=== PATIENT | male | born 1965 | race Caucasian/White ===

== ENCOUNTER 2022-01-11 04:55 | Emergency (ER) | payer OTHER, SELFPAY ==
--- NOTE | ~2022-01-11 | XR_ITS ---
EXAMINATION: XR shoulder RT min 2V DATE: 01/11/2022 05:54 INDICATION: Right shoulder pain. Injury. TECHNIQUE: 4 views of right shoulder were obtained. COMPARISON: Chest 2 views 03/05/2019 FINDINGS: There is a comminuted fracture of distal right clavicle. The main distal fracture fragment demonstrates 19 mm inferior displacement and 18 degrees inferior angulation. There is mild osteoarthr itis of acromioclavicular joint. Glenohumeral joint is normal. IMPRESSION: 1. Comminuted fracture of distal clavicle. Reviewed, dictated and finalized at location A. NG CRATER
--- NOTE | ~2022-01-11 | CT_ITS ---
EXAMINATION: CT brain wo con DATE: 01/11/2022 05:57 INDICATION: Syncope. TECHNIQUE: Computed tomography (CT) of the head was performed without intravenous contrast. The mA wa s adjusted according to patient size. Iterative reconstruction technique was employed. The dose-lengt h product was 681.00 mGy-cm. COMPARISON: Head CT 05/15/2014 FINDINGS: There is no intracranial hemorrhage, acute infarction, or abnormal intracranial mass lesion . The ventricles are normal in size. There is mild mucosal thickening in the paranasal sinuses. The m astoid air cells are normal. The orbits are normal. IMPRESSION: 1. Normal brain. Reviewed, dictated and finalized at location A. COORDINATOR IMPRESSION: 1. Normal brain.
--- NOTE | ~2022-01-11 | XR_ITS ---
EXAMINATION: XR ribs RT 2V w CXR 2V DATE: 01/11/2022 05:54 INDICATION: Right rib pain. Fall. TECHNIQUE: Frontal and lateral views of the chest and 2 views on 4 radiographs of the right ribs were obtained. COMPARISON: Chest 2 views 03/05/2019, chest CT 07/05/2017 FINDINGS: CHEST TWO VIEWS: There is mild atelectasis at left lung base. No pleural effusion or pneumothorax. Th e heart size is normal. There is a large hiatal hernia. There is a comminuted fracture of distal righ t clavicle. RIGHT RIBS: There is an acute fracture of right seventh rib. There are multiple old healed right rib fractures. IMPRESSION: 1. Acute fracture of right seventh rib. 2. Comminuted fracture of distal right clavicle. 3. Large hiatal hernia. 4. Mild atelectasis at left lung base. Reviewed, dictated and finalized at location A. ETITIVE ATHLETE
[2022-01-11 04:58] VITALS: BP 142/96; PULSE 111; RESP 18; TEMP 36.8; O2SAT 97
--- NOTE | 2022-01-11 05:22 | ECG_ITS ---
Measurements Intervals [place] Rate: 100 P: 14 [place]: 135 QRS: 83 QRSD: 85 T: 47 QT: 317 QTc: 409 Interpretive Statements SINUS TACHYCARDIA BASELINE ARTIFACT NONSPECIFIC T-WAVE ABNORMALITY BORDERLINE ECG NO PREVIOUS ECG AVAILABLE FOR COMPARISON Electronically Signed On 01-11-2022 14:07:10 SENIOR MANAGEMENT CONSULTANT by Gabe Yarbrough M.D.
--- NOTE | 2022-01-11 05:36 | ED.SYNCOPE ---
HPI - Syncope General Chief Complaint: Extremity Injury, Upper Stated Complaint: fall, right collar bone injury Time Seen by Provider: 01/11/22 05:34 Source: patient Mode of arrival: ambulatory Limitations: no limitations History of Present Illness HPI narrative: Patient is a 56-year-old male complaining of right rib pain, 9 out of 10, sharp, worse with movement, palpation and deep breaths that started after he had a syncopal episode, fell landing on his right shoulder and ribs. Patient states that his syncopal episode lasted for approximately 1 to 2 minutes. Patient states that he has history of multiple syncopal episodes in the past due to low iron and anemia . Patient states that he gets regular iron infusions due to his iron deficiency anemia. Patient denies any neck, chest, abdomen, back, pelvis, hip or any other extremity pain/injury. Patient denies any symptoms prior to the syncopal episode. Related Data Allergies Allergy/AdvReac Type Severity Reaction Status Date / Time Penicillins Allergy Unknown Unknown Verified 01/11/22 05:02 Review of Systems Review of Systems: All systems reviewed & are unremarkable except as noted in HPI and below Constitutional: Constitutional: Denies body ache(s), Denies chills, Denies excessive sweating, Denies fatigue, Denies fever(s), Denies headache(s), Denies lethargy, Denies malaise, Denies weakness and Denies weight loss Eyes: Eyes: Denies blurry vision, Denies change in vision and Denies loss of vision ENT: Denies dizziness, Denies ear discharge, Denies headache(s), Denies lip swelling, Denies epistaxis, Denies nasal congestion, Denies neck pain, Denies throat swelling and Denies tongue swelling Cardiovascular: Cardiovascular: Denies chest pain, Denies chest pain at rest, Denies chest pain with activity, Denies diaphoresis, Denies rapid heart rate, Denies edema, Denies irregular heart rhythm, Denies lightheadedness, Denies palpitations, Denies dyspnea and Denies dyspnea on exertion Respiratory: Respiratory: Denies chest congestion, Denies cough, Denies hemoptysis, Denies dyspnea and Denies dyspnea on exertion Gastrointestinal: Gastrointestinal: Denies abdominal pain, Denies melena, Denies hematochezia, Denies diarrhea, Denies nausea, Denies vomiting and Denies hematemesis Musculoskeletal: Musculoskeletal: Denies abnormal gait, Denies deformity, Denies joint swelling, Denies limited range of motion, Denies neck pain and Denies numbness Neurologic: Denies Abnormal speech present, Denies abnormal gait, Denies confusion, Denies dizziness, Denies headache(s), Denies focal weakness, Denies loss of vision, Denies numbness, Denies Other visual disturbances, Denies Sensory deficit (Neuro) and Denies weakness Psychiatric: Psychiatric: Denies confusion, Denies depression, Denies auditory hallucinations, Denies homicidal ideation and Denies suicidal ideation Endocrine: Endocrine: Denies cold intolerance, Denies excessive sweating, Denies fatigue, Denies heat intolerance and Denies palpitations Hematologic/Lymphatic: Hematologic/Lymphatic: Denies easy bleeding and Denies easy bruising Allergic/Immunologic: Allergic/Immunologic: Denies lip swelling, Denies throat swelling and Denies tongue swelling PMFSH Past Medical History Medical History BMI 26.0-26.9,adult Erectile dysfunction Hypothyroidism Psychophysiological insomnia Skin lesion of face Testosterone deficiency Family History Family History Grandparent Diabetes mellitus Other Family history of arthritis Family history of malignant neoplasm Social History Social History Alcohol intake: current Exam Const: General: cooperative, healthy appearing, comfortable, no acute distress, well developed, alert and awake; No confusion Orientation/consciousness: oriented to perso
[2022-01-11 05:38] LABS: Basophils Percent Auto 0.2 % (0.2-1.2); Eosinophils Absolute Auto 0.1 K/mm3 (0-0.3); Eosinophils Percent Auto 1.9 % (0-4.4); Hematocrit 42.2 % (42.0-52.0); Hemoglobin 12.9 g/dL (14.0-18.0); Immature Granulocyte Absolute 0.02 K/mm3 (0.00-0.031); Immature Granulocyte Percent A 0.3 % (0-0.5); Immature Platelet Fraction Pct 8.4 % (0.9-11.2); Lymphocytes Absolute Auto 1.02 K/mm3 (0.9-3.2); Lymphocytes Percent Auto 15.8 % (18.3-44.2); Mean Corpuscular HGB Conc 30.6 g/dl (32-36); Mean Corpuscular Hemoglobin 25.4 pg (26-34); Mean Corpuscular Volume 83.2 fl (80-100); Monocytes Absolute Auto 0.7 K/mm3 (0.1-0.6); Monocytes Percent Auto 10.4 % (2.6-8.5); Neutrophils Absolute Auto 4.6 K/mm3 (1.3-6.7); Neutrophils Percent Auto 71.4 % (45.5-73.1); Platelet Count Result 287 k/mm3 (150-375); Red Blood Count 5.07 M/mm3 (4.6-6.20); White Blood Count 6.5 K/mm3 (4.5-10.0)
[2022-01-11] MEDS: HYDROmorphone HCL INJ (*CRX) 1 MG/ML SYR 0.5 MG IV PUSH ×2 (05:38→07:23)
[2022-01-11 05:44] LABS: Alanine Aminotransferase 35 U/L (4-50); Albumin Level 4.7 g/dL (3.5-5.1); Alkaline Phosphatase 105 U/L (38-126); Anion Gap 9 mmol/L (8-16); Aspartate Amino Transferase 52 U/L (17-59); Bilirubin,Total 0.9 mg/dL (0.2-1.3); Blood Urea Nitrogen 14 mg/dL (9-20); Calcium 8.4 mg/dL (8.4-10.2); Carbon Dioxide 21 mmol/L (22-30); Chloride 105 mmol/L (98-107); Estimated CRCL calculation 83 ml/min; Estimated Glomerular Filt Rate > 60; Glucose 154 mg/dL (65-110); Potassium 4.7 mmol/L (3.4-5.0); Sodium 135 mmol/L (137-145)
[2022-01-11 06:18] LABS: Troponin I < 0.012 ng/mL (0.000-0.034)
--- NOTE | 2022-01-11 07:17 | PC.NURSE ---
Patient report received from DANELLE Lopez. All questions answered and care of patient assumed. Patient resting quietly in stretcher with family at beside. Call-light within reach. VSS. Awaiting disposition.
[2022-01-11] MEDS: diazePAM (*CRX) 5 MG TABLET PO (07:22)
[2022-01-11 07:29] LABS: Anisocytosis 1+ (NORMAL); Atypical Lymphocytes Present; Hypochromasia 1+ (NORMAL); Platelet Estimate Adequate (Adequate); Poikilocytosis 1+ (NORMAL)
[2022-01-11 07:38] VITALS: BP 115/80; PULSE 76; RESP 13; O2SAT 94
--- NOTE | 2022-01-11 08:00 | PC.NURSE ---
Sling applied to Right Arm.
[2022-01-11 08:03] VITALS: BP 125/80; PULSE 82; RESP 17; O2SAT 95
== END 2022-01-11 08:20 | disposition home or self-care (01) ==
PROVIDERS: Emergency Medicine; PCP Family Medicine
DX: S22.31XA Fracture of one rib, right side, initial encounter for closed fracture (principal); S42.031A Displaced fracture of lateral end of right clavicle, initial encounter for closed fracture; R55 Syncope and collapse; E03.9 Hypothyroidism, unspecified; W18.39XA Other fall on same level, initial encounter; R00.0 Tachycardia, unspecified; R94.31 Abnormal electrocardiogram [ECG] [EKG]
CPT/HCPCS: 36415; 70450; 71046; 71100; 73030; 80053; 84484; 85025; 85055; 86850; 86900; 86901; 93005; 96374; 96376; 99284; A4565; A9270; J1170

== ENCOUNTER 2023-07-31 14:54 | Emergency (ER) | payer OTHER, SELFPAY ==
[2023-07-31] VITALS (19 sets, daily range): BP systolic 129–141; BP diastolic 81–97; PULSE 49–68; RESP 9–18; TEMP 36.4; O2SAT 99–100
--- NOTE | ~2023-07-31 | XR_ITS ---
EXAMINATION: XR chest 2V Exam Date/Time: 07/31/2023 16:40 CDT HISTORY: CHEST PAIN Comparison: 01/11/2022. RESULT: Lines, tubes, and devices: None. Lungs and pleura: Clear. Cardiomediastinal silhouette: Stable. Hiatal hernia. Other: No acute osseous or upper abdominal finding. Nonunited right distal clavicular fracture. IMPRESSION: No acute cardiopulmonary process. Reviewed, dictated and finalized at location K.
--- NOTE | 2023-07-31 15:53 | ECG_ITS ---
Measurements Intervals [place] Rate: 65 P: 53 [place]: 138 QRS: 88 QRSD: 84 T: 78 QT: 402 QTc: 418 Interpretive Statements SINUS RHYTHM BASELINE ARTIFACT- I, II, III, AVR, AVL NORMAL ECG COMPARED TO ECG 01/11/2022 05:11:37 SINUS RHYTHM NOW PRESENT Electronically Signed On 07-31-2023 20:34:37 CDT by Vel Whitley D.O.
[2023-07-31 16:47] LABS: Basophils Percent Auto 0.4 % (0.2-1.2); Eosinophils Absolute Auto 0.2 K/mm3 (0-0.3); Eosinophils Percent Auto 3.4 % (0-4.4); Hematocrit 44.4 % (42.0-52.0); Hemoglobin 14.6 g/dL (14.0-18.0); Immature Granulocyte Absolute 0.01 K/mm3 (0.00-0.031); Immature Granulocyte Percent A 0.2 % (0-0.5); Lymphocytes Absolute Auto 1.52 K/mm3 (0.9-3.2); Mean Corpuscular HGB Conc 32.9 g/dl (32-36); Mean Corpuscular Hemoglobin 30.7 pg (26-34); Mean Corpuscular Volume 93.3 fl (80-100); Mean Platelet Volume 11.7 fl (7.4-10.4); Monocytes Absolute Auto 0.5 K/mm3 (0.1-0.6); Monocytes Percent Auto 11.2 % (2.6-8.5); Neutrophils Absolute Auto 2.5 K/mm3 (1.3-6.7); Neutrophils Percent Auto 52.8 % (45.5-73.1); Platelet Count Result 200 k/mm3 (150-375); Red Blood Count 4.76 M/mm3 (4.6-6.20); Red Cell Distribution Width 14.5 % (11.5-14.5); White Blood Count 4.8 K/mm3 (4.5-10.0)
[2023-07-31 16:59] LABS: Alanine Aminotransferase 47 U/L (6-50); Albumin Level 4.6 g/dL (3.5-5.1); Alkaline Phosphatase 72 U/L (38-126); Anion Gap 8 mmol/L (8-16); Aspartate Amino Transferase 48 U/L (17-59); Bilirubin,Total 0.5 mg/dL (0.2-1.3); Blood Urea Nitrogen 21 mg/dL (9-20); Calcium 9.2 mg/dL (8.4-10.2); Carbon Dioxide 26 mmol/L (22-30); Chloride 104 mmol/L (98-107); Estimated CRCL calculation 97 ml/min; Estimated Glomerular Filt Rate > 60; Glucose 113 mg/dL (65-110); Lipase 207 U/L (23-300); Potassium 4.7 mmol/L (3.4-5.0); Sodium 138 mmol/L (137-145)
[2023-07-31] MEDS: ASPIRIN 81 MG CHEWABLE TABLET 324 MG PO (17:00)
[2023-07-31 17:01] LABS: INR 0.9; Prothrombin Time 12.7 Seconds (11.1-14.7)
[2023-07-31 17:09] LABS: Troponin I < 0.012 ng/mL (0.000-0.034)
--- NOTE | 2023-07-31 17:11 | ED.CHESTPAIN ---
HPI - Chest Pain General Chief Complaint: Chest Pain Stated Complaint: Chest Pain Time Seen by Provider: 07/31/23 16:57 History of Present Illness HPI narrative: Patient is a 57-year-old male with history of chronic iron deficiency anemia here with flu-like symptoms and chest pain. Patient states symptoms have been present for about 1 week. he had some sick contacts last week with a friend who had influenza. He notes that he has been having body aches, chills, hot flashes, headache. He notes that yesterday he began having mid to left-sided chest pain which is nonradiating. He notes that with the chest pain he has been having some shortness of breath. He has an associated cough. no prior cardiac history. No history of prior PE or DVT. No recent travel, no recent surgeries, no leg swelling, no calf tenderness. Additionally states that he has had some fatigue and this feels similar to when he requires blood transfusions. He is typically get has a blood transfusion every 4-5 months due to his chronic anemia. No active bleeding. Related Data Allergies Allergy/AdvReac Type Severity Reaction Status Date / Time Penicillins Allergy Unknown Unknown Verified 07/31/23 16:59 Review of Systems Review of Systems: CONSTITUTIONAL: fever, chills, or sweats. EYES: Denies visual changes, redness, or discharge. ENT: Denies rhinorrhea, congestion, sore throat, or otalgia. CARDIOVASCULAR: chest pain, no palpitations, or edema. RESPIRATORY: cough and dyspnea. GASTROINTESTINAL: Denies abdominal pain, nausea, vomiting GENITOURINARY: Denies dysuria or hematuria. SKIN: Denies rash or itching. MUSCULOSKELETAL: Denies back pain, joint pain, or myalgia. NEUROLOGIC: headache, no numbness, or weakness. PSYCHIATRIC: Denies anxiety or depression. [facility] Past Medical History Medical History Apnea BMI 22.0-22.9, adult BMI 26.0-26.9,adult BMI 27.0-27.9,adult BPH (benign prostatic hyperplasia) De Quervain's disease (tenosynovitis) Erectile dysfunction Hyperhidrosis Hypothyroidism Knee abrasion Need for vaccination Psychophysiological insomnia Skin lesion of face Testosterone deficiency Weight loss, unintentional Family History Family History Grandparent Diabetes mellitus Father Acute myocardial infarction Mother Leukemia Cancer of vulva Cancer of kidney Other Family history of arthritis Family history of malignant neoplasm Social History Social History Smoking status: Never smoker Second hand tobacco smoke exposure: No Alcohol intake: current Substance use: current Substance use type: marijuana 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 HEAD: Normocephalic, atraumatic. EYES: PERRLA and EOMI. ENT: Nares clear. Mucous membranes moist. NECK: Supple. CHEST: Clear to auscultation. No respiratory distress. HEART: Regular rate and rhythm. Normal peripheral pulses. ABDOMEN: Soft, nontender, nondistended. EXTREMITIES: Normal range of motion. No edema, no calf tenderness. SKIN: Warm, dry, no rash. NEURO: No focal deficits. Alert and oriented x3. PSYCH: Normal mood and affect. Course Course Emergency Course: Chart review performed. Triage note states patient here with chest pain. Triage vitals within normal li
[2023-07-31 17:57] LABS: Influenza A QL RT-PCR Negative (Negative); Influenza B QL RT-PCR Negative (Negative); RSV RNA, RT-PCR Negative (Negative); SARS-CoV-2 RNA PCR Negative (Negative)
[2023-07-31] MEDS: SODIUM CHLORIDE 0.9% IV 1,000 ML 999 ML IV CONT (19:05)
[2023-07-31] MEDS: ACETAMINOPHEN 500 MG TABLET 1000 MG PO (19:06)
[2023-07-31 19:38] LABS: Troponin I < 0.012 ng/mL (0.000-0.034)
== END 2023-07-31 20:42 | disposition home or self-care (01) ==
PROVIDERS: Emergency Medicine; Emergency Provider Student in an Organized Health Care Education/Training Program; PCP Family Medicine
DX: R07.9 Chest pain, unspecified (principal); Z20.822 Contact with and (suspected) exposure to COVID-19; E03.9 Hypothyroidism, unspecified
CPT/HCPCS: 36415; 71046; 80053; 83690; 84484; 85025; 85610; 85730; 87637; 93005; 96360; 99284; A9270; J7030

== ENCOUNTER 2023-08-10 00:25 | Day surgery (SDC) | payer OTHER, SELFPAY ==
[2023-08-03 13:11] VITALS: BMI 23.2
--- NOTE | 2023-08-09 16:50 | PM.HPGS ---
History of Present Illness History of Present Illness Consent: Risks, benefits, and alternatives have been discussed and questions answered. Patient agrees to proceed with procedure. Chief complaint: Abnormal weight loss, Iron Deficiency Anemia Narrative: Sebastien Gee is a 57 year old male referred because of chronic anemia. He has been receiving a Iron insfusion every 6 months or so. Now he is also losing weight. He has lost about 50 lb in the past year. He does not see blood in his stools. Review of Systems Review of Systems: All systems reviewed & are unremarkable except as noted in HPI and below PMFSH Past Medical History Medical History Apnea BMI 22.0-22.9, adult BMI 26.0-26.9,adult BMI 27.0-27.9,adult BPH (benign prostatic hyperplasia) De Quervain's disease (tenosynovitis) Erectile dysfunction Hyperhidrosis Hypothyroidism Knee abrasion Need for vaccination Psychophysiological insomnia Skin lesion of face Testosterone deficiency Weight loss, unintentional Family History Family History Grandparent Diabetes mellitus Father Acute myocardial infarction Mother Leukemia Cancer of vulva Cancer of kidney Other Family history of arthritis Family history of malignant neoplasm Social History Social History Smoking status: Never smoker Second hand tobacco smoke exposure: No Alcohol intake: current Drinks per week: 4 Substance use: current Substance use type: does not use 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 Gender identity (if verbalized by the patient): Male Spiritual care concerns: No Meds Home Medications and Allergies Home Medications Medication Instructions Recorded Confirmed Type atorvastatin 40 mg tablet 40 mg PO DAILY #90 tabs 10/15/20 08/03/23 Rx ferrous sulfate 325 mg (65 mg 650 mg PO DAILY #60 tabs 03/10/21 08/03/23 Rx iron) tablet sildenafil 100 mg tablet 100 mg PO DAILY PRN sexual 11/09/22 08/03/23 Rx activity #30 tabs omeprazole 20 mg capsule,delayed 20 mg PO DAILY #90 caps 12/22/22 08/03/23 Rx release vawyvvprhm-dlpavzspczyus-opgaefex 1 cap PO Q6H PRN pain #90 caps 06/07/23 08/03/23 Rx 50 mg-300 mg-40 mg capsule (Fioricet) alprazolam 0.5 mg tablet 0.5 mg PO .QHS #90 tabs 06/17/23 08/03/23 Rx gabapentin 300 mg capsule 300 mg PO QHS #90 caps 06/17/23 08/03/23 Rx mirtazapine 15 mg tablet 15 mg PO QHS #90 tabs 06/17/23 08/03/23 Rx Allergies Allergy/AdvReac Type Severity Reaction Status Date / Time Penicillins Allergy Unknown Unknown Verified 08/10/23 09:37 Exam Const: General: alert Orientation/consciousness: patient oriented x3 Resp: Auscultation: clear to auscultation bilaterally Cardio: Rhythm: regular rhythm GI: GI Palp: Yes Soft to palpation and No Tenderness to palpation present (GI) Neuro: General: patient oriented x3 Assessment and Plan Assessment and plan (1) Iron deficiency anemia: Qualifiers: Iron deficiency anemia type: other iron deficiency Qualified Code(s): D50.8 - Other iron deficiency anemias Code(s): D50.9 - Iron deficiency anemia, unspecified Status: Acute Assessment and Plan: Colonoscopy with possible biopsy or polypectomy or cautery or injection of substances. (2) Weight loss, unintentional: Code(s): R63.4 - Abnormal weight loss Status: Acute Assessment and Plan: EGD with possibl
[2023-08-10 09:38] VITALS: BP 112/75; PULSE 67; RESP 18; TEMP 36.2; O2SAT 100
[2023-08-10] MEDS: LACTATED RINGERS 1,000 ML 150 ML IV CONT (09:44)
--- NOTE | 2023-08-10 10:34 | WPDANESEPPF ---
Anes - Initial Pre Proc Eval Procedure: Operation Date: 08/10/23 11:00 Proposed Procedures p Esophagogastroduodenoscopy & Colonoscopy - Kali Baxter MD Date/Time: 08/10/23 10:34 Surgeon: Kali Baxter MD Pre Op Diagnosis: Abnormal weight loss, Iron Deficiency Anemia Patient Data Age: 57 Gender: M Height: 1.88 m Weight: 82 kg Last Vital Signs Temp 97.1 F L 08/10/23 09:38 Pulse 67 08/10/23 09:38 Resp 18 08/10/23 09:38 BP 112/75 08/10/23 09:38 Pulse Ox 100 08/10/23 09:38 O2 Del Method Room Air 08/10/23 09:38 Allergies Allergy/AdvReac Type Severity Reaction Status Date / Time Penicillins Allergy Unknown Unknown Verified 08/10/23 09:37 Home Medications Medication Instructions Recorded Confirmed Type atorvastatin 40 mg tablet 40 mg PO DAILY #90 tabs 10/15/20 08/03/23 Rx ferrous sulfate 325 mg (65 mg 650 mg PO DAILY #60 tabs 03/10/21 08/03/23 Rx iron) tablet sildenafil 100 mg tablet 100 mg PO DAILY PRN sexual 11/09/22 08/03/23 Rx activity #30 tabs omeprazole 20 mg capsule,delayed 20 mg PO DAILY #90 caps 12/22/22 08/03/23 Rx release bvwitucfei-bffgofzqltfxa-hyxlmryo 1 cap PO Q6H PRN pain #90 caps 06/07/23 08/03/23 Rx 50 mg-300 mg-40 mg capsule (Fioricet) alprazolam 0.5 mg tablet 0.5 mg PO .QHS #90 tabs 06/17/23 08/03/23 Rx gabapentin 300 mg capsule 300 mg PO QHS #90 caps 06/17/23 08/03/23 Rx mirtazapine 15 mg tablet 15 mg PO QHS #90 tabs 06/17/23 08/03/23 Rx Patient hx anesthesia problems: none Family hx anesthesia problems: none Results Review: All pre-operative results and documents have been reviewed as part of the pre-operative evaluation. [facility] Past Medical History Medical History Apnea BMI 22.0-22.9, adult BMI 26.0-26.9,adult BMI 27.0-27.9,adult BPH (benign prostatic hyperplasia) De Quervain's disease (tenosynovitis) Erectile dysfunction Hyperhidrosis Hypothyroidism Knee abrasion Need for vaccination Psychophysiological insomnia Skin lesion of face Testosterone deficiency Weight loss, unintentional Family History Family History Grandparent Diabetes mellitus Father Acute myocardial infarction Mother Leukemia Cancer of vulva Cancer of kidney Other Family history of arthritis Family history of malignant neoplasm Social History Social History Smoking status: Never smoker Second hand tobacco smoke exposure: No Alcohol intake: current Drinks per week: 4 Substance use: current Substance use type: does not use 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/Education: retired 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 Informed Consent: The patient's anesthetic plan and its attendant risks and benefits were discussed with the patient/family/POA. Questions were solicited and answers provided to the satisfaction of the patient/family/POA.
--- NOTE | 2023-08-10 10:58 | SUR.OPER ---
EGD START: 1041; END: 1043. COLONOSCOPY START: 1050; END: 1057.
[2023-08-10 11:02] VITALS: BP 92/61; PULSE 57; RESP 18; O2SAT 98
[2023-08-10 11:12] VITALS: BP 95/61; PULSE 54; RESP 18; O2SAT 100
[2023-08-10 11:22] VITALS: BP 113/69; PULSE 54; RESP 18; O2SAT 100
== END 2023-08-10 11:34 | disposition home or self-care (01) ==
PROVIDERS: PCP Family Medicine; Visit Provider Internal Medicine Gastroenterology
PROC: 0DJ08ZZ Inspection of Upper Intestinal Tract, Via Natural or Artificial Opening Endoscopic (ICD-10-PCS; CPT 43235; principal; 2023-08-10 11:00)
DX: D50.9 Iron deficiency anemia, unspecified (principal); K57.30 Diverticulosis of large intestine without perforation or abscess without bleeding; K44.9 Diaphragmatic hernia without obstruction or gangrene; N40.0 Benign prostatic hyperplasia without lower urinary tract symptoms; E29.1 Testicular hypofunction; Z68.23 Body mass index [BMI] 23.0-23.9, adult
CPT/HCPCS: 45378; 43235; J2704; J7120

== ENCOUNTER 2023-08-30 10:06 | Emergency (ER) | payer OTHER, SELFPAY ==
--- NOTE | ~2023-08-30 | XR_ITS ---
XR shoulder LT min 2V 08/30/2023 10:58 INDICATION: Left shoulder pain PROCEDURE: 4 views left shoulder COMPARISON: No prior studies for comparison. FINDINGS: Fracture, dislocation or subluxation is not identified. The soft tissues appear within norm al limits. No foreign bodies are identified. IMPRESSION: 1: NO ACUTE BONE OR JOINT ABNORMALITY IDENTIFIED. Reviewed, dictated and finalized at location L.
--- NOTE | 2023-08-30 10:14 | ED.EXTPRO ---
HPI - Extremity Problem General Chief complaint: Extremity Problem,Nontraumatic Stated complaint: shoulder pain Time Seen by Provider: 08/30/23 10:14 Source: patient Mode of arrival: ambulatory Limitations: no limitations History of Present Illness HPI Narrative: Sebastien is a 57-year-old male patient presenting to clinic today with complaints of chronic shoulder pain that has been getting worse over the last month. He reports he has had shoulder pain for several years now. States that he is now having pain shooting down his arm and into his left lateral chest. Has severe pain when raising his arm above his head and trying to cross his arm to the right shoulder. Reports hand weakness to the left hand as well. No known injury to the left shoulder. 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 Patient denies any fever, chills, rash, headache, visual changes, dizziness, cough, runny nose, sore throat, shortness of breath, chest pain, palpitations, nausea, vomiting, diarrhea, constipation, abdominal pain, or any urinary issues. [facility] Past Medical History Medical History Apnea BMI 22.0-22.9, adult BMI 26.0-26.9,adult BMI 27.0-27.9,adult BPH (benign prostatic hyperplasia) De Quervain's disease (tenosynovitis) Erectile dysfunction Hyperhidrosis Hypothyroidism Knee abrasion Need for vaccination Psychophysiological insomnia Skin lesion of face Testosterone deficiency Weight loss, unintentional Family History Family History Grandparent Diabetes mellitus Father Acute myocardial infarction Mother Leukemia Cancer of vulva Cancer of kidney Other Family history of arthritis Family history of malignant neoplasm Social History Social History Smoking status: Never smoker Second hand tobacco smoke exposure: No Alcohol intake: current Drinks per week: 4 Substance use: current Substance use type: does not use 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 There is no relevant family history pertinent to the patient complaint. Exam Narrative: General: Well-developed, well nourished, in no apparent distress Head: Normocephalic, atraumatic. Cardio: Regular rate and rhythm, s1 and s2 normal, no murmur appreciated. Resp: Clear to auscultation bilaterally, no rhonchi, rales, wheezing or rubs. Musculoskeletal: No deformity,tender to palpation over the mid anterior shoulder and the posterior shoulder, pain radiating down the left lateral humerus and over the left lateral chest wall, unable to raise arm above head without significant pain, pain with empty can and full can testing, negative drop-arm test, positive Rojo test, left hand grasp is weaker than right, peripheral pulse strong, no edema, no cyanosis, normal gait and station Course Course Emergency Course: Portions of this record may have been created with voice recognition software. Level of Care: Express Care Visit Vital Signs Vital signs: Vital signs reviewed
[2023-08-30 10:23] VITALS: BP 133/86; PULSE 69; RESP 16; TEMP 36.2; O2SAT 100
== END 2023-08-30 11:24 | disposition home or self-care (01) ==
PROVIDERS: Emergency Provider Nurse Practitioner Family; PCP Family Medicine
DX: M77.8 Other enthesopathies, not elsewhere classified (principal); N40.0 Benign prostatic hyperplasia without lower urinary tract symptoms; E03.9 Hypothyroidism, unspecified
CPT/HCPCS: 73030; 99213; G0463

== ENCOUNTER 2025-06-18 11:16 | Observation (INO) | payer OTHER, SELFPAY ==
[2025-06-18] VITALS (9 sets, daily range): BP systolic 123–142; BP diastolic 83–98; PULSE 58–89; RESP 12–19; TEMP 36.5–36.9; O2SAT 96–98; BMI 21.9
--- NOTE | ~2025-06-18 | CT_ITS ---
EXAMINATION: CTA chest PE protocol DATE: 06/18/2025 13:31 CDT INDICATION: Chest pressure. Chest tightness TECHNIQUE: Computed tomographic angiography (CTA) of the chest was performed with 100 mL Omnipaque-35 0 intravenous contrast. The dose-length product was 307.18 mGy-cm. Maximum intensity projection 3D-re constructions of the aorta and other arteries were constructed by the technologist on a separate work station. COMPARISON: 07/05/2017 FINDINGS: Moderate to large hiatal hernia. No enlarged mediastinal or hilar lymph nodes. Heart is not enlarged. Pulmonary artery is unremarkable . No pulmonary mass is identified. Visualized tracheobronchial tree is patent. No pneumothorax. No focal pulmonary consolidation. No pul monary mass. No pleural effusion. Small opacities in the lower lobes. Minimal multilevel degenerative change in the thoracic spine. IMPRESSION: 1. No pulmonary embolism identified. 2. Small opacities in the lower lobes. Differential includes atelectasis/scarring or an inflammatory/ infectious process. 3. Moderate to large hiatal hernia. Reviewed, dictated and finalized at location A. IMPRESSION: 1. No pulmonary embolism identified. 2. Small opacities in the lower lobes. Differential includes atelectasis/scarri ng or an inflammatory/infectious process. 3. Moderate to large hiatal hernia.
--- NOTE | ~2025-06-18 | XR_ITS ---
Exam: Chest 2 views. CLINICAL HISTORY: Mid chest pain COMPARISON: Chest x-ray 07/31/2023 Technique: Frontal and lateral films of the chest were obtained. FINDINGS: Heart is not enlarged. No pneumothorax. No pleural effusion. No free air in the diaphragm. Probable m oderate to large hiatal hernia which has slightly increased in size. IMPRESSION: 1. No acute pulmonary process identified. 2. Probable moderate to large hiatal hernia which has slightly increased in size as compared to the s tudy from 07/31/2023. Consider a chest CT for further assessment. Reviewed, dictated and finalized at location A. IMPRESSION: 1. No acute pulmonary process identified. 2. Probable moderate to large hiatal hernia which has slightly increased in siz e as compared to the study from 07/31/2023. Consider a chest CT for further asse ssment.
--- NOTE | 2025-06-18 11:24 | ECG_ITS ---
Test Date: 2025-06-18 11:25:56 Measurements Intervals [place] Rate: 74 P: 7 [place]: 145 QRS: 80 QRSD: 86 T: 76 QT: 361 QTc: 402 Interpretive Statements SINUS RHYTHM NORMAL ECG No previous ECG available for comparison Electronically Signed On 06-18-2025 14:03:49 CDT by Vel Whitley D.O.
[2025-06-18] MEDS: ASPIRIN 81 MG CHEWABLE TABLET 324 MG PO (11:40)
[2025-06-18 11:41] LABS: Hematocrit 46.6 % (42.0-52.0); Hemoglobin 15.7 g/dL (14.0-18.0); Immature Granulocyte Percent A 0.2 % (0-0.5); Lymphocytes Absolute Auto 1.03 K/mm3 (0.9-3.2); Mean Corpuscular HGB Conc 33.7 g/dl (32-36); Mean Corpuscular Hemoglobin 30.1 pg (26-34); Mean Corpuscular Volume 89.3 fl (80-100); Nucleated Red Blood Cells Absolute Auto 0.000 K/mm3 (0.0-0.012); Nucleated Red Blood Cells Perc 0.0 % (0.0-0.2); Platelet Count Result 210 k/mm3 (150-375); Red Blood Count 5.22 M/mm3 (4.6-6.20); White Blood Count 5.3 K/mm3 (4.5-10.0)
[2025-06-18 11:50] LABS: Alanine Aminotransferase 34 U/L (6-50); Albumin Level 4.6 g/dL (3.5-5.1); Alkaline Phosphatase 81 U/L (38-126); Anion Gap 10 mmol/L (4-12); Aspartate Amino Transferase 38 U/L (17-59); Bilirubin,Total 0.9 mg/dL (0.2-1.3); Blood Urea Nitrogen 16 mg/dL (9-20); Calcium 10.0 mg/dL (8.4-10.2); Carbon Dioxide 20 mmol/L (22-30); Chloride 104 mmol/L (98-107); Estimated CRCL calculation 92 ml/min; Estimated Glomerular Filt Rate > 60; Glucose 141 mg/dL (65-110); Lipase 196 U/L (23-300); Potassium 4.7 mmol/L (3.4-5.0); Sodium 134 mmol/L (137-145); Total Protein 7.9 g/dL (6.3-8.2)
[2025-06-18 11:53] LABS: INR 0.9; Partial Thromboplastin Time 27.2 Seconds (22.3-36.8); Prothrombin Time 12.8 Seconds (11.1-14.7)
[2025-06-18 12:02] LABS: Troponin I 0.025 ng/mL (0.000-0.034)
--- OUTSIDE RECORDS SUMMARY | 2025-06-18 12:09 | XMS_ITS | Encounter Summary ---
Author Organization [facility] Address [facility] [place] [address] Care Team Providers Care Branch Lending Manager Name Role Phone Tobias Barboza MD Primary Care Provider [phone] Encounter Details Date Type Department Care Team (Late st Contact Info) Description 09/09/2021 Therapy Plan [facility] One Day Services [address] [place], [place] [id number] Tobias Barboza MD [address] [facility] [address] Social History Tobacco Use Types Packs/Day Years Used Date Smoking Tobacco: Never Assessed Sex and Gender Information Value Date Recorded Sex Assigned at Not on file Legal Sex Male 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
--- OUTSIDE RECORDS SUMMARY | 2025-06-18 12:09 | XMS_ITS | Encounter Summary ---
Author Organization [facility] Address [address] [place] [address] Care Team Providers Care Special Education Tutor Name Role Phone Tobias Barboza MD Primary Care Provider [phone] Reason for Referral * Injection (Routine) - Closed Specialty Diagnoses / Procedures Referred By Contac t Referred To Contact INFUSION THERAPY / [facility] Infusion Therapy Diagnoses Iron deficiency Other iron deficiency anemias Procedures INJECTION, FERRIC CARBOXYMALTOSE, 1 MG For Injectafer weekly x 3 doses [facility] One Day Services [address] [place] [address] Phone: tel: [facility] Infusion Services [address] [place] [address] Phone: tel: Referral ID Status Reason Start Date Expiration Date V isits Requested Visits Authorized [id number] Closed Specialty Services 05/25/2021 06/25/2022 4 4 Scheduling Instructions For Injectafer Encounter Details Date Type Department Care Team (Late st Contact Info) Description 05/25/2021 Therapy Plan [facility] Day Services [address] [place] [address] Tobias Barboza MD [address] [address] Social History Tobacco Use Types Packs/Day Years Used Date Smoking Tobacco: Never Assessed Sex and Gender Information Value Date Recorded Sex Assigned at Not on file Legal 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 No / Unsure 05/27/2021 1:54 PM CDT documented as of this encounter Plan of Treatment Scheduled Referrals Name Type Priority Associated Diagnoses Orde r Schedule Ambulatory referral to Infusion Therapy Referral Routine Iron deficiency Iron deficiency anemia Ordered: 05/25/2021 documented as of this encounter Visit Diagnoses Diagnosis Iron deficiency- Primary Iron deficiency anemia, unspecified Iron deficiency anemia Iron deficiency anemia, unspecified documented in this encounter Care Teams Special Education Tutor Relationship Specialty Start Date End Date Tobias Barboza MD [address] [address] PCP - General FAMILY PRACTICE 12/07/19 documented as of this encounter
--- OUTSIDE RECORDS SUMMARY | 2025-06-18 12:09 | XMS_ITS | Encounter Summary ---
Author Organization [facility] Address [facility] [place] [address] Care Team Providers Care Manager Planning Name Role Phone Tobias Barboza MD Primary Care Provider [phone] Encounter Details Date Type Department Care Team (Late st Contact Info) Description 02/27/2025 Therapy Plan [facility] One Day Services [address] [place] [address] Noelle Nnues, ASAF [address] [place] [address] Social History Tobacco Use Types Packs/Day Years Used Date Smoking Tobacco: Never Assessed Sex and Gender Information Value Date Recorded Sex Assigned at Not on file Legal Sex Male 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
--- OUTSIDE RECORDS SUMMARY | 2025-06-18 12:09 | XMS_ITS | Clinical Summary ---
Author Organization [facility] Address [address] [place] [address] Care Team Providers Care Asset Analyst Name Role Phone Tobias Barboza MD Primary Care Provider [phone] Allergies No known active allergies Medications tamsulosin (FLOMAX) 0.4 mg capsule Take 0.4 mg by mouth daily. Active atorvastatin (LIPITOR) 20 mg tablet Take 20 mg by mouth late in the day. Active ALPRAZolam (XANAX) 0.5 mg tablet Take 0.5 mg by mouth 3 times daily as needed for Anxiety. Active aspirin-caffein e-butalbital (FIORINAL) 325-40-50 mg capsule Take 1 Capsule by mouth every 4 hours as needed for Migraine. Active ascorbic acid, vitamin C, (VITAMIN C) 500 mg tablet Take 500 mg by mouth 3 times daily. Active ferrous sulfate 325 mg (65 mg iron) tablet Take 325 mg by mouth 2 times daily . Active ANDROGEL 20.25 mg/1.25 gram (1.62 %) Gel in Metered-dose Pump APPLY TO EACH UPPER ARM AND SHOULDER IN THE MORNING FOR A TOTAL DOSE OF 40.5MG 1 02/17/2018 Active meloxicam (MOBIC) 15 mg tablet TK 1 T PO QD 2 03/11/2018 Active omeprazole (PriLOSEC) 20 mg Capsule, Delayed Release(E.C.) TK ONE C PO QD AC 5 03/11/2018 Active ARIPiprazole (ABILIFY) 5 mg tablet Take 5 mg by mouth daily. 0 03/13/2019 Active Active Problems Problem Noted Date Diagnosed Date Iron deficiency anemia 08/09/2017 Family History Medical History Relation Name Comments Heart Disease Father Cancer Mother Heart Disease Mother Relation Name Status Comments Father Mother Alive Social History Tobacco Use Types Packs/Day Years Used Date Smoking Tobacco: Never Alcohol Use Standard Drinks/Week Comments Yes 0 (1 standard drink = 0.6 oz pur e alcohol) occasional Sex and Gender Information Value Date Recorded Sex Assigned at Not on file Legal Sex Male 1:09 PM CDT Gender Identity Not on file Sexual Orientation Not on file Last Filed Vital Signs Vital Sign Reading Time Taken Comments Blood Pressure 132/92 03/16/2019 8:57 AM CDT Pulse 86 03/16/2019 8:57 AM CDT Temperature 36.7 C (98.1 F) 03/16/2019 8:57 AM CDT Respiratory Rate 16 12/18/2018 1:11 PM E MARKETING SPECIALIST Oxygen Saturation 95% 03/16/2019 8:57 AM CDT Inhaled Oxygen Concentration - - Weight 98.2 kg (216 lb 8 oz) 03/16/2019 8:57 AM CDT Height 188 cm (6' 2) 03/16/2019 8:57 AM CDT Body Mass Index 27.8 03/16/2019 8:57 AM CDT Plan of Treatment Health Maintenance Due Date Last Done Comments DTAP/TDAP/TD VACCINES (1 - Tdap) 1982 COLORECTAL SCREENING 2008 FIT-DNA Q 3 years 2008 Flex Sig/CT Colonography Q 5 years 2008 ZOSTER VACCINE (1 of 2) 2013 Colorectal Cancer Screening 05/15/2019 FIT/FOBT Q 1 year 05/15/2019 05/15/2018 INFLUENZA VACCINE (#1) 2025 RSV VACCINE (60+ or ) (1 - 1-dose 75+ series) 2038 Procedures Procedure Name Priority Date/Time Associated Diagnosis Comments POC OCCULT BLOOD 1 CARD Routine 05/15/2018 Iron deficiency anemia, unspecified iron deficiency anemia type from Last 3 Months or Most Recently Relevant to Health Maintenance Results * POC OCCULT BLOOD 1 CARD (05/15/2018) Stool STOOL SPECIMEN / Unknown us Bhaskar Monterroso MD POINT OF CARE TESTING Final Res [facility] from Last 3 Months or Most Recently Relevant to Health Maintenance Insurance [employer] Care Teams Asset Analyst Relationship Specialty Start Date End Date Tobias Barboza MD [address] [place] [address] PCP - General Family Practice 08/02/17
--- OUTSIDE RECORDS SUMMARY | 2025-06-18 12:09 | XMS_ITS | Encounter Summary ---
Author Organization [facility] Address [facility] [place] [address] Care Team Providers Care Trial Judge Name Role Phone Tobias Barboza MD Primary Care Provider [phone] Encounter Details Date Type Department Care Team (Late st Contact Info) Description 02/19/2022 Be-Bound Message [facility] Patient Accounts [address] [place] [address] [facility] Provider Monthly Credit Card Payment Social History Tobacco Use Types Packs/Day Years Used Date Smoking Tobacco: Never Assessed Sex and Gender Information Value Date Recorded Sex Assigned at Not on file Legal Sex Male 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
--- OUTSIDE RECORDS SUMMARY | 2025-06-18 12:09 | XMS_ITS | Clinical Summary ---
Author Organization [facility] Address [facility] [place] [address] Care Team Providers Care Scientific Glass Blower Name Role Phone Tobias Barboza MD Primary Care Provider [phone] Allergies No known active allergies Medications ferrous sulfate EC 325 (65 Fe) MG tablet Take 1 tablet by mouth daily with breakfast. Active Active Problems Problem Noted Date Diagnosed Date Iron deficiency 05/25/2021 Iron deficiency anemia carri agudelo to inadequate dietary iron intake 05/25/2021 Iron deficiency anemia 12/07/2019 Encounters Date Type Department Care Team Description 03/18/2025 12:39 PM CDT - 03/18/2025 1:30 PM CDT Hospital Encounter [facility] [address] [place] [address] Noelle Nunes NP Discharge Disposition: Home or Self Care (Routine Discharge) 03/18/2025 Travel from Last 3 Months Social History Tobacco Use Types Packs/Day Years Used Date Smoking Tobacco: Never Assessed Sex and Gender Information Value Date Recorded Sex Assigned at Not on file Legal 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 Gender Identity Not on file Sexual Orientation Not on file Last Filed Vital Signs Vital Sign Reading Time Taken Comments Blood Pressure 148/80 03/18/2025 1:22 PM CDT Pulse 66 03/18/2025 1:22 PM CDT Temperature 36.6 C (97.9 F) 03/18/2025 12:47 PM CDT Respiratory Rate 16 03/18/2025 1:22 PM CDT Oxygen Saturation 98% 03/18/2025 1:22 PM CDT Inhaled Oxygen Concentration - - Weight 88.5 kg (195 lb) 04/18/2023 8:35 AM CDT Height 188 cm (6' 2) 06/03/2021 1:57 PM CDT Body Mass Index 25.04 06/03/2021 1:57 PM CDT Plan of Treatment Health Maintenance Due Date Last Done Comments Colorectal Cancer Screening Colonoscopy (10 Years) 1963 Annual Physical 1966 Hepatitis C 1981 DTaP, Tdap and Td Vaccines ( 1 - Tdap) 1982 Pneumococcal Vaccine: 50+ Years (1 of 1 - PCV) 2013 Zoster Vaccines (1 of 2) 2013 COVID-19 Vaccine (3 - 2023-2 5 season) 2024 02/26/2021, 02/05/2021 PHQ-2 (Physician Marks) 11/07/2024 RSV Immunization or 60+ Years (1 - 1-dose 75+ series) 2038 Meningococcal B Vaccine Aged Out No l onger eligible based on patient's age to complete this topic Meningococcal Vaccine Aged Out No erasmo melanie eligible based on patient's age to complete this topic RSV Immunizations Under 20 Months Aged Out No longer eligible b ased on patient's age to complete this topic Insurance [employer] [facility] Care Teams Scientific Glass Blower Relationship Specialty Start Date End Date Tobias Barboza MD [address] [address] PCP - General FAMILY PRACTICE 12/07/19
--- OUTSIDE RECORDS SUMMARY | 2025-06-18 12:09 | XMS_ITS | Encounter Summary ---
Author Organization [facility] Address [facility] [place] [address] Care Team Providers Care Automatic Coin Machine Mechanic Name Role Phone Tobias Barboza MD Primary Care Provider [phone] Encounter Details Date Type Department Care Team (Late st Contact Info) Description 12/24/2021 RX Orders Only [facility] [address] [place], [place] [id number] Seema Nguyễn, [facility] Social History Tobacco Use Types Packs/Day Years Used Date Smoking Tobacco: Never Assessed Sex and Gender Information Value Date Recorded Sex Assigned at Not on file Legal 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 No / Unsure 12/22/2021 9:13 AM DENTAL CHAIR ASSEMBLER documented as of this encounter Plan of Treatment Not on file documented as of this encounter Visit Diagnoses Not on filedocumented in this encounter Care Teams Automatic Coin Machine Mechanic Relationship Specialty Start Date End Date Tobias Barboza MD [address] [place] [address] PCP - General FAMILY PRACTICE 12/07/19 documented as of this encounter
--- OUTSIDE RECORDS SUMMARY | 2025-06-18 12:09 | XMS_ITS | Encounter Summary ---
Author Organization [facility] Address [facility] [place] [address] Care Team Providers Care Shirt Sorter Name Role Phone Tobias Barboza MD Primary Care Provider [phone] Encounter Details Date Type Department Care Team (Late st Contact Info) Description 12/17/2021 Therapy Plan [facility] One Day Services [address] [place], [place] [id number] Tobias Barboza MD [address] [place] [address] Social History Tobacco Use Types Packs/Day Years Used Date Smoking Tobacco: Never Assessed Sex and Gender Information Value Date Recorded Sex Assigned at Not on file Legal Sex Male 1:12 PM ADMINISTRATIVE ASSISTANT RECEPTIONIST Gender Identity Not on file Sexual Orientation Not on file COVID-19 Exposure Response Date Recorded In the last 10 days, have yo u been in contact with someone who was confirmed or suspected to have Coronavirus/COVID-19? No / Unsure 12/18/2021 3:11 PM ADMINISTRATIVE ASSISTANT RECEPTIONIST documented as of this encounter Plan of Treatment Not on file documented as of this encounter Visit Diagnoses Diagnosis Iron deficiency- Primary Iron deficiency anemia, unspecified Iron deficiency anemia secondary to inadequate dietary iron intake documented in this encounter Care Teams Shirt Sorter Relationship Specialty Start Date End Date Tobias Barboza MD [address] [place] [address] PCP - General FAMILY PRACTICE 12/07/19 documented as of this encounter
--- OUTSIDE RECORDS SUMMARY | 2025-06-18 12:09 | XMS_ITS | Encounter Summary ---
Author Organization [facility] Address [facility] [place] [address] Care Team Providers Care Flame Channeler Name Role Phone Tobias Barboza MD Primary Care Provider [phone] Encounter Details Date Type Department Care Team (Late st Contact Info) Description 03/02/2022 Therapy Plan [facility] One Day Services [address] [place], [place] [phone] Tobias Barboza MD [address] [facility] [place] [address] Social History Tobacco Use Types Packs/Day Years Used Date Smoking Tobacco: Never Assessed Sex and Gender Information Value Date Recorded Sex Assigned at Not on file Legal 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
--- OUTSIDE RECORDS SUMMARY | 2025-06-18 12:09 | XMS_ITS | Encounter Summary ---
Author Organization [facility] Address [address] [place] [address] Care Team Providers Care Starch Dumper Name Role Phone Tobias Barboza MD Primary Care Provider Reason for Referral * Injection (Urgent) - Closed Specialty Diagnoses / Procedures Referred By Contac t Referred To Contact INFUSION THERAPY / Short Stay Services Diagnoses Iron deficiency anemia Procedures INJECTION, FERRIC CARBOXYMALTOSE, 1 MG [facility] One Day Services [address] [place] [address] Phone: tel: [facility] Day Services [address] [place] [address] Phone: tel: Referral ID Status Reason Start Date Expiration Date V isits Requested Visits Authorized [id number] Closed Specialty Services 01/02/2021 01/30/2022 2 2 Scheduling Instructions For injectafer infusions x2 doses - stat Office requesting to schedule CAS Per Shima / Dr. Islas office, states she called insurance co - see order scanned. O BROKER Encounter Details Date Type Department Care Team (Late st Contact Info) Description 01/02/2021 Therapy Plan [facility] Day Services [id number] [place] [address] Tobias Barboza MD [address] [address] Social History Tobacco Use Types Packs/Day Years Used Date Smoking Tobacco: Never Assessed Sex and Gender Information Value Date Recorded Sex Assigned at Not on file Legal Sex Male 1:12 PM CARGO BROKER Gender Identity Not on file Sexual Orientation Not on file COVID-19 Exposure Response Date Recorded In the last month, have you been in contact with someone who was confirmed or suspected to have Coronavirus / COVID-19? No / Unsure 01/02/2021 2:07 PM CARGO BROKER documented as of this encounter Plan of Treatment Scheduled Referrals Name Type Priority Associated Diagnoses Orde r Schedule Ambulatory referral to Infusion Therapy Referral Routine Iron deficiency anemia Ordered: 01/02/2021 documented as of this encounter Visit Diagnoses Diagnosis Iron deficiency anemia- Primary Iron deficiency anemia, unspecified documented in this encounter Care Teams Starch Dumper Relationship Specialty Start Date End Date Tobias Barboza MD [address] [place], [place] [id number] PCP - General FAMILY PRACTICE 12/07/19 documented as of this encounter
--- OUTSIDE RECORDS SUMMARY | 2025-06-18 12:09 | XMS_ITS | Encounter Summary ---
Author Organization [facility] Address [address] [place] [address] Care Team Providers Care Paper Plate Machine Tender Name Role Phone Tobias Barboza MD Primary Care Provider [phone] Encounter Details Date Type Department Care Team (Late st Contact Info) Description 04/07/2023 Therapy Plan [facility] One Day Services [address] [place] [address] Jerome Garcia, LUNCHROOM ATTENDANT [address] [place] [id number] Social History Tobacco Use Types Packs/Day Years Used Date Smoking Tobacco: Never Assessed Sex and Gender Information Value Date Recorded Sex Assigned at Not on file Legal Sex Male 1:12 PM MANAGER GAMES Gender Identity Not on file Sexual Orientation Not on file documented as of this encounter Plan of Treatment Not on file documented as of this encounter Visit Diagnoses Diagnosis Iron deficiency anemia due to chronic blood loss- Primary Iron deficiency anemia secondary to blood loss (chronic) documented in this encounter Care Teams Paper Plate Machine Tender Relationship Specialty Start Date End Date Tobias Barboza MD [address] [address] PCP - General FAMILY PRACTICE 12/07/19 documented as of this encounter
--- OUTSIDE RECORDS SUMMARY | 2025-06-18 12:09 | XMS_ITS | Encounter Summary ---
Author Organization [facility] Address [facility] [place] [address] Care Team Providers Care Library Cataloging Technician Name Role Phone Tobias Barboza MD Primary Care Provider [phone] Encounter Details Date Type Department Care Team (Late st Contact Info) Description 08/23/2024 Therapy Plan [facility] One Day Services [address] [place] [address] Kristal Valadez PA-C [address] [place] [address] Social History Tobacco Use Types Packs/Day Years Used Date Smoking Tobacco: Never Assessed Sex and Gender Information Value Date Recorded Sex Assigned at Not on file Legal Sex Male 1:12 PM PEDIATRIC 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
--- OUTSIDE RECORDS SUMMARY | 2025-06-18 12:09 | XMS_ITS | Encounter Summary ---
Author Organization [facility] Address [facility] [place] [address] Care Team Providers Care Cutter Down Name Role Phone Tobias Barboza MD Primary Care Provider [phone] Encounter Details Date Type Department Care Team (Late st Contact Info) Description 05/07/2020 Therapy Plan [facility] One Day Services [address] [place], [place] [id number] Tobias Barboza MD [address] [facility] [place] [address] Social History Tobacco Use Types Packs/Day Years Used Date Smoking Tobacco: Never Assessed Sex and Gender Information Value Date Recorded Sex Assigned at Not on file Legal 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 No / Unsure 05/08/2020 9:21 AM CDT documented as of this encounter Plan of Treatment Not on file documented as of this encounter Visit Diagnoses Diagnosis Iron deficiency anemia, unspecified iron deficiency anemia type- Primary documented in this encounter Care Teams Cutter Down Relationship Specialty Start Date End Date Tobias Barboza MD [address] [place] [address] PCP - General FAMILY PRACTICE 12/07/19 documented as of this encounter
--- OUTSIDE RECORDS SUMMARY | 2025-06-18 12:09 | XMS_ITS | Encounter Summary ---
Author Organization [facility] Address [facility]ly [facility] [place] [address] Care Team Providers Care Surgical Scheduler Name Role Phone Tobias Barboza MD Primary Care Provider [phone] Encounter Details Date Type Department Care Team (Late st Contact Info) Description 11/11/2022 Therapy Plan [facility] One Day Services [address] [place], [place] [id number] Tobias Barboza MD [address] [place] [address] Social History Tobacco Use Types Packs/Day Years Used Date Smoking Tobacco: Never Assessed Sex and Gender Information Value Date Recorded Sex Assigned at Not on file Legal Sex Male 1: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
--- OUTSIDE RECORDS SUMMARY | 2025-06-18 12:09 | XMS_ITS | Encounter Summary ---
Author Organization [facility] Address [facility] [place] [address] Care Team Providers Care Segmental Paving Supervisor Name Role Phone Tobias Barboza MD Primary Care Provider [phone] Encounter Details Date Type Department Care Team (Late st Contact Info) Description 10/19/2023 Therapy Plan [facility] One Day Services [address] [place], [place] [id number] Tobias Barboza MD [address] [place] [address] Social History Tobacco Use Types Packs/Day Years Used Date Smoking Tobacco: Never Assessed Sex and Gender Information Value Date Recorded Sex Assigned at Not on file Legal Sex Male 1:12 PM ACTUARIAL ASSOCIATE Gender Identity Not on file Sexual Orientation Not on file documented as of this encounter Plan of Treatment Not on file documented as of this encounter Visit Diagnoses Diagnosis Iron deficiency anemia secondary to inadequate dietary iron intake- Primary documented in this encounter Care Teams Segmental Paving Supervisor Relationship Specialty Start Date End Date Tobias Barboza MD [address] [facility] [place] [address] PCP - General FAMILY PRACTICE 12/07/19 documented as of this encounter
--- OUTSIDE RECORDS SUMMARY | 2025-06-18 12:09 | XMS_ITS | Encounter Summary ---
Author Organization [facility] Address [facility] [place] [address] Care Team Providers Care Microstrategy Developer Name Role Phone Tobias Barboza MD Primary Care Provider [phone] Encounter Details Date Type Department Care Team (Late st Contact Info) Description 12/07/2019 Therapy Plan [facility] One Day Services [address] [place], [place] [id number] Tobias Barboza MD [address] [place] [address] Social History Tobacco Use Types Packs/Day Years Used Date Smoking Tobacco: Never Assessed Sex and Gender Information Value Date Recorded Sex Assigned at Not on file Legal Sex Male 1:12 PM SOCIAL PROFESSIONALS Gender Identity Not on file Sexual Orientation Not on file documented as of this encounter Plan of Treatment Not on file documented as of this encounter Visit Diagnoses Diagnosis Iron deficiency anemia, unspecified iron deficiency anemia type- Primary documented in this encounter Care Teams Microstrategy Developer Relationship Specialty Start Date End Date Tobias Barboza MD [address] [place] [address] PCP - General FAMILY PRACTICE 12/07/19 documented as of this encounter
--- OUTSIDE RECORDS SUMMARY | 2025-06-18 12:09 | XMS_ITS | Encounter Summary ---
Author Organization [facility] Address [facility] [place] [address] Care Team Providers Care Chief Clinical Officer Name Role Phone Tobias Barboza MD Primary Care Provider [phone] Encounter Details Date Type Department Care Team (Late st Contact Info) Description 03/20/2024 OfferWire Message [facility] Patient Accounts [address] [place] [address] [facility] Provider Action Required Social History Tobacco Use Types Packs/Day Years Used Date Smoking Tobacco: Never Assessed Sex and Gender Information Value Date Recorded Sex Assigned at Not on file Legal 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
--- OUTSIDE RECORDS SUMMARY | 2025-06-18 12:09 | XMS_ITS | Encounter Summary ---
Author Organization [facility] Address Formerly [facility] [place] [address] Care Team Providers Care Furnace Process Supervisor Name Role Phone Tobias Barboza MD Primary Care Provider [phone] Encounter Details Date Type Department Care Team (Late st Contact Info) Description 12/18/2021 Therapy Plan [facility] One Day Services [address] [place], [place] [phone] Tobias Barboza MD [address] [place] [address] Social History Tobacco Use Types Packs/Day Years Used Date Smoking Tobacco: Never Assessed Sex and Gender Information Value Date Recorded Sex Assigned at Not on file Legal Sex Male 1:12 PM 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 No / Unsure 12/18/2021 3:11 PM SPICE FUMIGATOR documented as of this encounter Plan of Treatment Not on file documented as of this encounter Visit Diagnoses Not on filedocumented in this encounter Care Teams Furnace Process Supervisor Relationship Specialty Start Date End Date Tobias Barboza MD [address] [place] [address] PCP - General FAMILY PRACTICE 12/07/19 documented as of this encounter
--- NOTE | 2025-06-18 12:35 | ED_ITS ---
HPI - General Adult General Chief complaint: Chest Pain Stated complaint: chest pain x 2 weeks. bad now Time Seen by Provider: 06/18/25 12:02 History of Present Illness HPI narrative: 59-year-old male presents to the emergency department for evaluation for chest pain and chest pressure. Patient denies any previous cardiac history but states he does have history of chest pain that been secondary to anemia. Patient states since then he has been getting iron infusions. Patient has had a very stressful 2 weeks. Patient states his mother had been placed on hospice and did pass away over the weekend. Patient states he does not normally drink daily but has been drinking daily over the last few days. Patient does work outside and does exert himself but denies any previous exertional chest pain. Patient denies any prior history of PE or DVT. Patient denies any lower extremity pain or swelling. At time of evaluation patient states the chest pain has resolved and denies any chest pressure chest pain chest tightness. Patient denies any current shortness of breath. Patient is well-appearing at time of evaluation. Related Data Home Medications ?Medication ?Instructions ?Recorded ?Confirmed ?Last Taken ?Type aluminum chloride 20 % topical 1 applic topical 3XW PRN 01/24/25 01/24/25 Unknown History solution (Drysol Dab-O-Matic) Allergies Allergy/AdvReac Type Severity Reaction Status Date / Time Penicillins AdvReac Mild Hives Verified 06/18/25 11:36 Review of Systems 2 Review of Systems: All systems reviewed & are unremarkable except as noted in HPI and below PMFSH Past Medical History Medical History Poison zechariah Fatigue BMI 22.0-22.9, adult Need for vaccination Apnea De Quervain's disease (tenosynovitis) Hyperhidrosis Weight loss, unintentional BPH (benign prostatic hyperplasia) Knee abrasion BMI 27.0-27.9,adult Hypothyroidism BMI 26.0-26.9,adult Skin lesion of face Erectile dysfunction Psychophysiological insomnia Testosterone deficiency Surgical History Surgical History History of ankle surgery Family History Family History Grandparent Diabetes mellitus Father Acute myocardial infarction Mother Leukemia Cancer of vulva Cancer of kidney Other Family history of arthritis Family history of malignant neoplasm Social History Social History Smoking status: Never smoker Second hand tobacco smoke exposure: No Alcohol intake: current Drinks per week: 4 Substance use: current Substance use type: does not use Last use: gummies at night to sleep. 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 HEAD: normocephalic, atraumatic. EYES: PERRLA/EOMI, conjunctivae clear. NOSE: Normal no drainage EARS:TMS clear with good light reflex. THROAT: Pharynx clear, no exudate. NECK: Supple. No adenopathy, no masses. RESPIRATORY: Airway patent, respirations nonlabored. Clear to auscultation bilaterally, no rales, rhonchi, wheezing. CARDIOVASCULAR: Regular rate and rhythm without murmurs rubs or gallops. ABDOMINAL: Soft, nontender, nondistended, normal bowel sounds MUSCULOSKELETAL: Moves all extremities. Strength/ROM intact, No edema, No calf tenderness. NEURO: Alert. Cranial nerves II through XII intact. Good gait. Good coordination SKIN: Warm, dry. Normal Color Course Vital Signs Vital signs: Vital Signs Temperature 97.7 F 06/18/25 11:25 Pulse Rate 72 06/18/25 11:25 Respiratory Rate 12 06/18/25 11:25 Blood Pressure 132/94 H 06/18/25 11:25 Pulse Oximetry 97 06/18/25 11:25 Oxygen Delivery Room Air 06/18/25 11:25 Temperature 97.7 F 06/18/25 11:25 Pulse Rate 81 06/18/25 13:55 Respiratory Rate 15 06/18/25 13:55 Blood Pressure 123/88 06/18/25 13:55 Pulse Oximetry 96 06/18/25 13:55 Oxygen Delivery Room Air 06/18/25 12:12 Medical Decision Making MDM Narrative Medical decision making narrative: 59-year-old male presents emergency department for evaluation for intermittent chest pain and chest pressure that has resolved since presented to the emergency department. Patient is currently afebrile no leukocytosis hemoglobin 15.7. Patient has an INR 0.9 and no acute abnormalities on his CMP. Patient's initial troponin was 0.025. Chest x-ray shows no acute cardiopulmonary abnormality. CTA was ordered to evaluate for pulmonary embolism this was negative. Patient 2nd troponin was elevated at 0.245. Patient did have an episode of chest pain while in the emergency department and this was resolved with sublingual nitro. At time of re-evaluation patient states he is having no chest pressure chest tightness or shortness of breath. Cardiology was consulted for the NSTEMI. Patient was started on heparin bolus and infusion the emergency department. And family are updated on the results of the workup and need for admission. Critical Care Procedure Note Authorized and Performed by: Herb Interiano Total critical care time: Approximately 36 minutes Due to a high probability of clinically significant, life threatening deterioration, the patient required my highest level of preparedness to intervene emergently and I personally spent this critical care time directly and personally managing the patient. This critical care time included obtaining a history; examining the patient; pulse oximetry; ordering and review of studies; arranging urgent treatment with development of a management plan; evaluation of patient's response to treatment; frequent reassessment; and, discussions with other providers. This critical care time was performed to assess and manage the high probability of imminent, life-threatening deterioration that could result in multi-organ failure. It was exclusive of separately billable procedures and treating other patients and teaching time. Please see MDM section and the rest of the note for further information on patient assessment and treatment. Differential Diagnosis Differential Diagnosis: Pulmonary embolism, pneumonia, pneumothorax, ACS, takotsubo, NSTEMI, STEMI Vital Signs Vital Signs: Vital Signs Temperature 97.7 F 06/18/25 11:25 Pulse Rate 72 06/18/25 11:25 Respiratory Rate 12 06/18/25 11:25 Blood Pressure 132/94 H 06/18/25 11:25 Pulse Oximetry 97 06/18/25 11:25 Oxygen Delivery Room Air 06/18/25 11:25 Temperature 97.7 F 06/18/25 11:25 Pulse Rate 81 06/18/25 13:55 Respiratory Rate 15 06/18/25 13:55 Blood Pressure 123/88 06/18/25 13:55 Pulse Oximetry 96 06/18/25 13:55 Oxygen Delivery Room Air 06/18/25 12:12 Lab Data Lab results reviewed: Yes I reviewed the patient's lab results. 06/18/25 11:34 06/18/25 11:34 Labs: Lab Results 06/18/25 06/18/25 Range/Units 11:34 14:15 WBC 5.3 (4.5-10.0) K/mm3 RBC 5.22 (4.6-6.20) M/mm3 Hgb 15.7 (14.0-18.0) g/dL Hct 46.6 (42.0-52.0) % MCV 89.3 (80-100) fl MCH 30.1 (26-34) pg MCHC 33.7 (32-36) g/dl RDW 14.3 (11.5-14.5) % Plt Count 210 (150-375) k/mm3 MPV 10.7 H (7.4-10.4) fl Immature Gran % (Auto) 0.2 (0-0.5) % Neut % (Auto) 69.3 (45.5-73.1) % Lymph % (Auto) 19.5 (18.3-44.2) % [place] % (Auto) 9.3 H (2.6-8.5) % Eos % (Auto) 1.1 (0-4.4) % Baso % (Auto) 0.6 (0.2-1.2) % Lymph # (Auto) 1.03 (0.9-3.2) K/mm3 [place] # (Auto) 0.5 (0.1-0.6) K/mm3 Eos # (Auto) 0.1 (0-0.3) K/mm3 Baso # (Auto) 0.0 (0.0-0.1) K/mm3 Abs Immat Gran (auto) 0.01 (0.00-0.031) K/mm3 Absolute Neuts (auto) 3.7 (1.3-6.7) K/mm3 Absolute Nucleated RBC 0.000 (0.0-0.012) K/mm3 Nucleated RBC % 0.0 (0.0-0.2) % PT 12.8 (11.1-14.7) Seconds INR 0.9 APTT 27.2 (22.3-36.8) Seconds D-Dimer 0.30 (<0.48) ug/mL Sodium 134 L (137-145) mmol/L Potassium 4.7 (3.4-5.0) mmol/L Chloride 104 (98-107) mmol/L Carbon Dioxide 20 L (22-30) mmol/L Anion Gap 10 (4-12) mmol/L BUN 16 (9-20) mg/dL Creatinine 0.82 (0.7-1.3) mg/dL Estim Creat Clear Calc 92 ml/min Estimated GFR > 60 (59 - ) Glucose 141 H (65-110) mg/dL Calcium 10.0 (8.4-10.2) mg/dL Total Bilirubin 0.9 (0.2-1.3) mg/dL AST 38 (17-59) U/L ALT 34 (6-50) U/L Alkaline Phosphatase 81 (38-126) U/L Troponin I 0.025 0.245 H* D (0.000-0.034) ng/mL Total Protein 7.9 (6.3-8.2) g/dL Albumin 4.6 (3.5-5.1) g/dL Lipase 196 (23-300) U/L Blood Type O Positive Antibody Screen Negative Imaging Data Radiologist's impression: Impressions Chest X-Ray 06/18/25 12:38 IMPRESSION: 1. No acute pulmonary process identified. 2. Probable moderate to large hiatal hernia which has slightly increased in size as compared to the study from 07/31/2023. Consider a chest CT for further assessment. Chest CTA 06/18/25 13:30 IMPRESSION: 1. No pulmonary embolism identified. 2. Small opacities in the lower lobes. Differential includes atelectasis/scarring or an inflammatory/infectious process. 3. Moderate to large hiatal hernia. ECG Data EKG #1: EKG Interpretation: normal rate, sinus rhythm, no ectopy, no ST changes, normal QRS, normal QT and NL axis Critical Care Time Critical Care Time Critical Care Time: Yes Total Critical Care Time: 36 Discharge Plan Discharge Clinical Impression: Takotsubo syndrome, Non-ST elevation HI (NSTEMI) Patient Disposition: Still a Patient Condition: Serious
[2025-06-18] MEDS: LACTATED RINGERS 1,000 ML 999 ML IV CONT (12:54)
--- OUTSIDE RECORDS SUMMARY | 2025-06-18 13:08 | XMS_ITS | Encounter Summary ---
Author Organization [facility] Address [facility] [place] [address] Care Team Providers Care Post Form Remover Name Role Phone Tobias Barboza MD Primary Care Provider [phone] Encounter Details Date Type Department Care Team (Late st Contact Info) Description 10/19/2023 Therapy Plan [facility] One Day Services [address] [place], [place] [id number] Tobias Barboza MD [address] [address] Social History Tobacco Use Types Packs/Day Years Used Date Smoking Tobacco: Never Assessed Sex and Gender Information Value Date Recorded Sex Assigned at Not on file Legal Sex Male 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
--- OUTSIDE RECORDS SUMMARY | 2025-06-18 13:08 | XMS_ITS | Encounter Summary ---
Author Organization [facility] Address [address] [place] [address] Care Team Providers Care Director Family Name Role Phone Tobias Barboza MD Primary Care Provider [phone] Reason for Referral * Injection (Urgent) - Closed Specialty Diagnoses / Procedures Referred By Contac t Referred To Contact INFUSION THERAPY / Short Stay Services Diagnoses Iron deficiency anemia Procedures INJECTION, FERRIC CARBOXYMALTOSE, 1 MG [facility] One Day Services [address] [place] [address] Phone: tel: [facility] Day Services [address] [place] [address] Phone: tel: Referral ID Status Reason Start Date Expiration Date V isits Requested Visits Authorized [id number] Closed Specialty Services 01/02/2021 01/30/2022 2 2 Scheduling Instructions For injectafer infusions x2 doses - stat Office requesting to schedule CAS Per Shima / Dr. Islas office, states she called insurance co - see order scanned. TYPEWRITER INSTALLER Encounter Details Date Type Department Care Team (Late st Contact Info) Description 01/02/[address] [facility] Day Services [id number] [place] [address] Tobias Barboza MD [address] [place] [address] Social History Tobacco Use Types Packs/Day Years Used Date Smoking Tobacco: Never Assessed Sex and Gender Information Value Date Recorded Sex Assigned at Not on file Legal Sex Male 1:12 PM TELETYPEWRITER INSTALLER Gender Identity Not on file Sexual Orientation Not on file COVID-19 Exposure Response Date Recorded In the last month, have you been in contact with someone who was confirmed or suspected to have Coronavirus / COVID-19? No / Unsure 01/02/2021 2:07 PM TELETYPEWRITER INSTALLER documented as of this encounter Plan of Treatment Scheduled Referrals Name Type Priority Associated Diagnoses Orde r Schedule Ambulatory referral to Infusion Therapy Referral Routine Iron deficiency anemia Ordered: 01/02/2021 documented as of this encounter Visit Diagnoses Diagnosis Iron deficiency anemia- Primary Iron deficiency anemia, unspecified documented in this encounter Care Teams Director Family Relationship Specialty Start Date End Date Tobias Barboza MD [address] [place], [place] [id number] PCP - General FAMILY PRACTICE 12/07/19 documented as of this encounter
--- OUTSIDE RECORDS SUMMARY | 2025-06-18 13:08 | XMS_ITS | Clinical Summary ---
Author Organization [facility] Address [address] [place] [address] Care Team Providers Care Inside Tester Name Role Phone Tobias Barboza MD Primary Care Provider [phone] Allergies No known active allergies Medications tamsulosin [...] CDT Respiratory Rate 16 12/18/2018 1:11 PM LOOM OPERATOR APPRENTICE Oxygen Saturation 95% 03/16/2019 8:57 AM CDT [...] to Health Maintenance Insurance [employer] Care Teams Inside Tester Relationship Specialty Start Date End Date Tobias Barboza MD [address] [place] [address] PCP - General Family Practice 08/02/17
--- OUTSIDE RECORDS SUMMARY | 2025-06-18 13:08 | XMS_ITS | Clinical Summary ---
Author Organization [facility] Address [facility] [place] [address] Care Team Providers Care Motor Vehicle License Clerk Name Role Phone Tobias Barboza MD Primary Care Provider [phone] Allergies No known active allergies Medications ferrous [...] - 03/18/2025 1:30 PM CDT Hospital Encounter [facility] [address] [place] [address] Noelle Nunes NP Discharge Disposition: Home or Self Care (Routine Discharge) 03/18/2025 Travel from Last 3 Months Social History Tobacco Use Types Packs/Day Years Used Date Smoking Tobacco: Never Assessed Sex and Gender Information Value Date Recorded Sex Assigned at Not on file 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
--- OUTSIDE RECORDS SUMMARY | 2025-06-18 13:08 | XMS_ITS | Encounter Summary ---
Author Organization [facility] Address [facility] [place] [address] Care Team Providers Care Hand Spring Repairer Name Role Phone Tobias Barboza MD Primary Care Provider [phone] Encounter Details Date Type Department Care Team (Late st Contact Info) Description 02/27/2025 Therapy Plan [facility] One Day Services [address] [place] [address] Noelle Nunes, ASAF [address] [place] [address] Social History Tobacco Use Types Packs/Day Years Used Date Smoking Tobacco: Never Assessed Sex and Gender Information Value Date Recorded Sex Assigned at Not on file Legal Sex Male 1: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
--- OUTSIDE RECORDS SUMMARY | 2025-06-18 13:08 | XMS_ITS | Encounter Summary ---
Author Organization [facility] Address [facility] [place] [address] Care Team Providers Care Dustless Operator Name Role Phone Tobias Barboza MD Primary Care Provider [phone] Encounter Details Date Type Department Care Team (Late st Contact Info) Description 11/11/2022 Therapy Plan [facility] One Day Services [address] [place], [place] [id number] Tobias Barboza MD [address] [address] Social History Tobacco Use Types Packs/Day Years Used Date Smoking Tobacco: Never Assessed Sex and Gender Information Value Date Recorded Sex Assigned at Not on file Legal Sex Male 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
--- OUTSIDE RECORDS SUMMARY | 2025-06-18 13:08 | XMS_ITS | Encounter Summary ---
Author Organization [facility] Address [facility] [place] [address] Care Team Providers Care Soil Science Professor Name Role Phone Tobias Barboza MD Primary Care Provider [phone] Encounter Details Date Type Department Care Team (Late st Contact Info) Description 03/02/2022 Therapy Plan [facility] One Day Services [address] [place], [place] [id number] Tobias Barboza MD [address] [facility] [place] [address] Social History Tobacco Use Types Packs/Day Years Used Date Smoking Tobacco: Never Assessed Sex and Gender Information Value Date Recorded Sex Assigned at Not on file Legal Sex Male 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
--- OUTSIDE RECORDS SUMMARY | 2025-06-18 13:08 | XMS_ITS | Encounter Summary ---
Author Organization [facility] Address [facility] [place] [address] Care Team Providers Care Meal Miller Name Role Phone Tobias Barboza MD Primary Care Provider [phone] Encounter Details Date Type Department Care Team (Late st Contact Info) Description 09/09/[address] 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
--- OUTSIDE RECORDS SUMMARY | 2025-06-18 13:08 | XMS_ITS | Encounter Summary ---
Author Organization [facility] Address [facility] [place] [address] Care Team Providers Care Fish Worm Grower Name Role Phone Tobias Barboza MD Primary Care Provider [phone] Encounter Details Date Type Department Care Team (Late st Contact Info) Description 02/19/2022 Moped Message [facility] Patient Accounts [address] [place] [address] [facility] Provider Monthly Credit Card Payment Social History Tobacco Use Types Packs/Day Years Used Date Smoking Tobacco: Never Assessed Sex and Gender Information Value Date Recorded Sex Assigned at Not on file 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
--- OUTSIDE RECORDS SUMMARY | 2025-06-18 13:08 | XMS_ITS | Encounter Summary ---
Author Organization [facility] Address [facility] [place] [address] Care Team Providers Care Pool Table Operator Name Role Phone Tobias Barboza MD Primary Care Provider [phone] Encounter Details Date Type Department Care Team (Late st Contact Info) Description 12/17/2021 Therapy Plan [facility] One Day Services [address] [place], [place] [id number] Tobias Barboza MD [address] [place] [address] Social History Tobacco Use Types Packs/Day Years Used Date Smoking Tobacco: Never Assessed Sex and Gender Information Value Date Recorded Sex Assigned at Not on file Legal Sex Male 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 No / Unsure 12/18/2021 3:11 PM ECOSYSTEM ECOLOGY PROFESSOR documented as of this encounter Plan of Treatment Not on file documented as of this encounter Visit Diagnoses Diagnosis Iron deficiency- Primary Iron deficiency anemia, unspecified Iron deficiency anemia secondary to inadequate dietary iron intake documented in this encounter Care Teams Pool Table Operator Relationship Specialty Start Date End Date Tobias Braboza MD [address] [place] [address] PCP - General FAMILY PRACTICE 12/07/19 documented as of this encounter
--- OUTSIDE RECORDS SUMMARY | 2025-06-18 13:08 | XMS_ITS | Encounter Summary ---
Author Organization [facility] Address [facility] [place] [address] Care Team Providers Care Wind Turbine Electrical Engineer Name Role Phone Tobias Barboza MD Primary Care Provider [phone] Encounter Details Date Type Department Care Team (Late st Contact Info) Description 03/20/2024 Vacatia Message [facility] Patient Accounts [address] [place] [address] [facility] Provider Action Required Social History Tobacco Use Types Packs/Day Years Used Date Smoking Tobacco: Never Assessed Sex and Gender Information Value Date Recorded Sex Assigned at Not on file Legal Sex Male 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
--- OUTSIDE RECORDS SUMMARY | 2025-06-18 13:08 | XMS_ITS | Encounter Summary ---
Author Organization [facility] Address [facility] [place] [address] Care Team Providers Care Operation Manager Name Role Phone Tobias Barboza MD Primary Care Provider [phone] Encounter Details Date Type Department Care Team (Late st Contact Info) Description 12/24/2021 RX Orders Only [facility] [address] [place], [place] [phone] Seema Nguyễn, [facility] Social History Tobacco Use Types Packs/Day Years Used Date Smoking Tobacco: Never Assessed Sex and Gender Information Value Date Recorded Sex Assigned at Not on file Legal Sex Male 1:12 PM ANGIOGRAPHY NURSE Gender Identity Not on file Sexual Orientation Not on file COVID-19 Exposure Response Date Recorded In the last 10 days, have yo u been in contact with someone who was confirmed or suspected to have Coronavirus/COVID-19? No / Unsure 12/22/2021 9:13 AM ANGIOGRAPHY NURSE documented as of this encounter Plan of Treatment Not on file documented as of this encounter Visit Diagnoses Not on filedocumented in this encounter Care Teams Operation Manager Relationship Specialty Start Date End Date Tobias Barboza MD [address] [address] PCP - General FAMILY PRACTICE 12/07/19 documented as of this encounter
--- OUTSIDE RECORDS SUMMARY | 2025-06-18 13:08 | XMS_ITS | Encounter Summary ---
Author Organization [facility] Address [facility] [place] [address] Care Team Providers Care Student Counsellor Name Role Phone Tobias Barboza MD Primary Care Provider [phone] Encounter Details Date Type Department Care Team (Late st Contact Info) Description 08/23/2024 Therapy Plan [facility] One Day Services [address] [place] [address] Kristal Valadez PA-C [address] [place] [address] Social History Tobacco Use Types Packs/Day Years Used Date Smoking Tobacco: Never Assessed Sex and Gender Information Value Date Recorded Sex Assigned at Not on file Legal Sex Male 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
--- OUTSIDE RECORDS SUMMARY | 2025-06-18 13:08 | XMS_ITS | Encounter Summary ---
Author Organization [facility] Address [address] [place] [address] Care Team Providers Care Police Artist Name Role Phone Tobias Barboaz MD Primary Care Provider [phone] Reason for Referral * Injection (Routine) - Closed Specialty Diagnoses / Procedures Referred By Contac t Referred To Contact INFUSION THERAPY / [facility] Infusion Therapy Diagnoses Iron deficiency Other iron deficiency anemias Procedures INJECTION, FERRIC CARBOXYMALTOSE, 1 MG For Injectafer weekly x 3 doses [facility] One Day Services [address] [place] [address] Phone: tel: [facility] Infusion Services [address] [place] [address] Phone: tel: Referral ID Status Reason Start Date Expiration Date V isits Requested Visits Authorized [id number] Closed Specialty Services 05/25/2021 06/25/2022 4 4 Scheduling Instructions For Injectafer Encounter Details Date Type Department Care Team (Late st Contact Info) Description 05/25/2021 Therapy Plan [facility] Day Services [address] [place] [address] Tobias Barboza MD [address] [place] [address] Social History Tobacco Use Types Packs/Day Years Used Date Smoking Tobacco: Never Assessed Sex and Gender Information Value Date Recorded Sex Assigned at Not on file Legal 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
--- OUTSIDE RECORDS SUMMARY | 2025-06-18 13:08 | XMS_ITS | Encounter Summary ---
Author Organization [facility] Address [address] [place] [address] Care Team Providers Care Caustic Purification Operator Name Role Phone Tobias Barboza MD Primary Care Provider [phone] Encounter Details Date Type Department Care Team (Late st Contact Info) Description 04/07/2023 Therapy Plan [facility] One Day Services [address] [place] [address] Jerome Garcia, LICENSED NURSE PRACTITIONER [address] [place] [id number] Social History Tobacco Use Types Packs/Day Years Used Date Smoking Tobacco: Never Assessed Sex and Gender Information Value Date Recorded Sex Assigned at Not on file Legal 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
--- OUTSIDE RECORDS SUMMARY | 2025-06-18 13:08 | XMS_ITS | Encounter Summary ---
Author Organization [facility] Address [facility] [place] [address] Care Team Providers Care Pot Tender Name Role Phone Tobias Barboza MD Primary Care Provider [phone] Encounter Details Date Type Department Care Team (Late st Contact Info) Description 12/18/2021 Therapy Plan [facility] One Day Services [address] [place], [place] [phone] Tobias Barboza MD [address] [place] [address] Social History Tobacco Use Types Packs/Day Years Used Date Smoking Tobacco: Never Assessed Sex and Gender Information Value Date Recorded Sex Assigned at Not on file Legal Sex Male 1:12 PM NUCLEAR TECHNOLOGIST Gender Identity Not on file Sexual Orientation Not on file COVID-19 Exposure Response Date Recorded In the last 10 days, have yo u been in contact with someone who was confirmed or suspected to have Coronavirus/COVID-19? No / Unsure 12/18/2021 3:11 PM NUCLEAR TECHNOLOGIST documented as of this encounter Plan of Treatment Not on file documented as of this encounter Visit Diagnoses Not on filedocumented in this encounter Care Teams Pot Tender Relationship Specialty Start Date End Date Tobias Barboza MD [address] [place] [address] PCP - General FAMILY PRACTICE 12/07/19 documented as of this encounter
--- OUTSIDE RECORDS SUMMARY | 2025-06-18 13:09 | XMS_ITS | Encounter Summary ---
Author Organization [facility] Address [facility] [place] [address] Care Team Providers Care Carcass Splitter Name Role Phone Tobias Barboza MD Primary Care Provider [phone] Encounter Details Date Type Department Care Team (Late st Contact Info) Description 12/07/2019 Therapy Plan [facility] One Day Services [address] [place], [place] [id number] Tobias Barboza MD [address] [place] [address] Social History Tobacco Use Types Packs/Day Years Used Date Smoking Tobacco: Never Assessed Sex and Gender Information Value Date Recorded Sex Assigned at Not on file Legal Sex Male 1:12 PM NICKEL OPERATOR Gender Identity Not on file Sexual Orientation Not on file documented as of this encounter Plan of Treatment Not on file documented as of this encounter Visit Diagnoses Diagnosis Iron deficiency anemia, unspecified iron deficiency anemia type- Primary documented in this encounter Care Teams Carcass Splitter Relationship Specialty Start Date End Date Tobias Barboza MD [address] [place] [address] PCP - General FAMILY PRACTICE 12/07/19 documented as of this encounter
--- OUTSIDE RECORDS SUMMARY | 2025-06-18 13:09 | XMS_ITS | Encounter Summary ---
Author Organization [facility] Address [facility] [place] [address] Care Team Providers Care Terminal Operations Supervisor Name Role Phone Tobias Barboza MD Primary Care Provider [phone] Encounter Details Date Type Department Care Team (Late st Contact Info) Description 05/07/2020 Therapy Plan [facility] One Day Services [address] [place], [place] [id number] Tobias Barboza MD [address] [facility] [place] [address] Social History Tobacco Use Types Packs/Day Years Used Date Smoking Tobacco: Never Assessed Sex and Gender Information Value Date Recorded Sex Assigned at Not on file Legal Sex Male 1:12 PM TAX SERVICES INTERN Gender Identity Not on file Sexual Orientation [...] Primary documented in this encounter Care Teams Terminal Operations Supervisor Relationship Specialty Start Date End Date Tobias Barboza MD [address] [place] [address] PCP - General FAMILY PRACTICE 12/07/19 documented as of this encounter
[2025-06-18] MEDS: NITROGLYCERIN SL 0.4 MG TABLET SUBLINGUAL (13:52)
[2025-06-18] MEDS: LORazepam INJ (*CRX) 2 MG/ML VIAL 1 MG IV PUSH (13:52)
--- NOTE | 2025-06-18 14:10 | ECG_ITS ---
Test Date: 2025-06-18 14:25:01 Measurements Intervals [place] Rate: 62 P: 5 NE: 142 QRS: 84 QRSD: 87 T: 72 QT: 415 QTc: 422 Interpretive Statements SINUS RHYTHM NORMAL ECG Compared to ECG 06/18/2025 11:25:56 No significant changes Electronically Signed On 06-18-2025 14:43:20 CDT by Vel Whitley D.O.
[2025-06-18 14:53] LABS: Troponin I 0.245 ng/mL (0.000-0.034)
[2025-06-18] MEDS: HEPARIN SOD/D5W 100 UNITS/ML 25,000 UNITS/250 ML BAG 9 UNITS IV CONT (15:33)
--- NOTE | 2025-06-18 18:47 | ECG_ITS ---
Test Date: 2025-06-18 18:51:49 Measurements Intervals [place] Rate: 70 P: 9 [place]: 141 QRS: 79 QRSD: 86 T: 62 QT: 390 QTc: 422 Interpretive Statements SINUS RHYTHM NORMAL ECG Compared to ECG 06/18/2025 14:25:01 No significant changes Electronically Signed On 06-18-2025 20:40:23 CDT by Vel Whitley D.O.
--- NOTE | 2025-06-18 19:40 | ADMGEN ---
This patient, Sebastien Gee, was admitted to IMU Room 212-01. Patient/family oriented to hospital policies and general routines including ID bracelet, bed and alarms, visiting hours, pain management, procedures, bathroom and other care routines, personal items, smoking policy, room service/diet, and visiting hours. Information on how to activate the Rapid Response Team has been discussed. Patient/Family are encouraged to report perceived risks to care and to ask questions if they do not understand what they are told or what they should do. Received report from Jaiden Leonard. Lenka arrived at 1905 from ED via stretcher without issue.
[2025-06-18 20:02] LABS: Troponin I 0.225 ng/mL (0.000-0.034)
--- NOTE | 2025-06-18 20:41 | P.HP_ITS ---
H&P: HPI History of Present Illness Date/Time: 06/18/25 20:41 Chief Complaint: Chest pain, NSTEMI, likely Takotsubo syndrome Narrative: This is a 59-year-old male patient with a history hyperlipidemia anxiety depr ession GERD fibromyalgia who was admitted to the hospital for chest pain with elevated troponins. Patient reports 2 weeks of intermittent chest heaviness feeling like something is standing on his chest that comes and goes. No known association with activity or stress. Patient denies shortness of breath or cough denies cold or flu symptoms denies fever chills. Patient denies nausea or vomiting constipation or diarrhea or abdominal pain. Past 2 weeks patient's mother was placed hospice and over the weekend. This has prompted the patient to drink alcohol daily for the last several days where he usually does not drink daily. Chest pain resolved without intervention in the emergency department. He did receive aspirin and with 2nd troponin being elevated was placed on a heparin drip in the ER with cardiology consult. Patient admitted to the IMU. Review of Systems Review of Systems: All systems reviewed & are unremarkable except as noted in HPI and below PMFSH Past Medical History Medical History Poison zechariah Fatigue BMI 22.0-22.9, adult Need for vaccination Apnea De Quervain's disease (tenosynovitis) Hyperhidrosis Weight loss, unintentional BPH (benign prostatic hyperplasia) Knee abrasion BMI 27.0-27.9,adult Hypothyroidism BMI 26.0-26.9,adult Skin lesion of face Erectile dysfunction Psychophysiological insomnia Testosterone deficiency Surgical History Surgical History History of ankle surgery Family History Family History Grandparent Diabetes mellitus Father Acute myocardial infarction Mother Leukemia Cancer of vulva Cancer of kidney Other Family history of arthritis Family history of malignant neoplasm Social History Social History Smoking status: Never smoker Second hand tobacco smoke exposure: No Alcohol intake: current Drinks per week: 10 Substance use: current Substance use type: marijuana Last use: gummies at night to sleep. 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 Gender identity (if verbalized by the patient): Male Spiritual care concerns: No Meds Home Medications and Allergies Home Medications ?Medication ?Instructions ?Recorded ?Confirmed ?Type alprazolam 0.5 mg tablet 0.5 mg PO .QHS #90 tabs 01/24/25 06/18/25 Rx atorvastatin 10 mg tablet 10 mg PO DAILY #90 tabs 01/24/25 06/18/25 Rx mirtazapine 7.5 mg tablet 7.5 mg PO DAILY #90 tabs 01/24/25 06/18/25 Rx omeprazole 20 mg capsule,delayed 20 mg PO DAILY #90 caps 01/24/25 06/18/25 Rx release gabapentin 300 mg capsule 300 mg PO QHS PRN pain 06/18/25 06/18/25 History Allergies Allergy/AdvReac Type Severity Reaction Status Date / Time Penicillins AdvReac Mild Hives Verified 06/18/25 11:36 Vital Signs Vital Signs - 24 hr 06/18/25 11:25 06/18/25 12:12 06/18/25 12:18 Temperature 36.5 C Pulse Rate 72 76 Respiratory Rate 12 19 Blood Pressure 132/94 H 126/98 H Pulse Oximetry 97 96 Oxygen Delivery Room Air Room Air 06/18/25 13:55 06/18/25 18:29 06/18/25 19:32 Temperature 36.8 C Pulse Rate 81 76 69 Respiratory Rate 15 14 17 Blood Pressure 123/88 127/84 138/83 Pulse Oximetry 96 96 96 Oxygen Delivery 06/18/25 19:57 Temperature 36.9 C Pulse Rate 71 Respiratory Rate 17 Blood Pressure 142/85 H Pulse Oximetry 97 Oxygen Delivery Exam Narrative: GENERAL: Well-appearing, well-nourished, and in no acute distress. HEAD: Normocephalic, atraumatic. ENT:? Mucous membranes moist. CHEST: Clear to auscultation.? No respiratory distress. HEART: Regular rate and rhythm. ? Normal peripheral pulses. ABDOMEN: Soft, nontender, nondistended. EXTREMITIES: Normal range of motion. No peripheral edema. SKIN: Warm dry normal color NEURO: Alert and oriented x3. PSYCH: Mildly dysthymic mood, normal affect H&P: Results Labs Labs: Short CBC 06/18/25 Range/Units 11:34 WBC 5.3 (4.5-10.0) K/mm3 Hgb 15.7 (14.0-18.0) g/dL Hct 46.6 (42.0-52.0) % Plt Count 210 (150-375) k/mm3 BMP 06/18/25 11:34 Sodium 134 L Potassium 4.7 Chloride 104 Carbon Dioxide 20 L BUN 16 Creatinine 0.82 Glucose 141 H Calcium 10.0 Cardiac Enzymes 06/18/25 06/18/25 06/18/25 Range/Units 11:34 14:15 18:50 Troponin I 0.025 0.245 H* D 0.225 H* (0.000-0.034) ng/mL Liver Function 06/18/25 Range/Units 11:34 Total Bilirubin 0.9 (0.2-1.3) mg/dL AST 38 (17-59) U/L ALT 34 (6-50) U/L Alkaline Phosphatase 81 (38-126) U/L Albumin 4.6 (3.5-5.1) g/dL Pulse Oximetry SpO2 results: 96-98% on room air Attestation: I personally reviewed and interpreted this pulse oximetry as follows: Interpretation: No need for supplemental oxygenation at this time ECG Attestation: I personally reviewed and interpreted this ECG as follows: ECG completion date: 06/18/25 ECG completion time: 11:25 Prior ECG tracings: not available for review Interpretation: Sinus rhythm rate of 74 GA interval 145 QRS duration 86 QTC 402 QRS axis 80? no STEMI or acute ischemic changes noted. My independent interpretation of 12 lead EKG obtained on 06/18/2025 at 6:51 p.m. unchanged from prior shows sinus rhythm rate of 70 GA interval 141 QRS duration 86 QTC 422 QRS axis 79 no STEMI or acute ischemic changes noted Imaging Chest x-ray: Radiologist's impression: Exam: Chest 2 views. CLINICAL HISTORY: Mid chest pain COMPARISON: Chest x-ray 07/31/2023 Technique: Frontal and lateral films of the chest were obtained. FINDINGS: Heart is not enlarged. No pneumothorax. No pleural effusion. No free air in the diaphragm. Probable moderate to large hiatal hernia which has slightly increased in size. IMPRESSION: 1. No acute pulmonary process identified. 2. Probable moderate to large hiatal hernia which has slightly increased in size as compared to the study from 07/31/2023. Consider a chest CT for further assessment. Reviewed, dictated and finalized at location A. CT scan - chest: Radiologist's impression: EXAMINATION: CTA chest PE protocol DATE: 06/18/2025 13:31 CDT INDICATION: Chest pressure. Chest tightness TECHNIQUE: Computed tomographic angiography (CTA) of the chest was performed with 100 mL Omnipaque-350 intravenous contrast. The dose-length product was 307.18 mGy-cm. Maximum intensity projection 3D-reconstructions of the aorta and other arteries were constructed by the technologist on a separate workstation. COMPARISON: 07/05/2017 FINDINGS: Moderate to large hiatal hernia. No enlarged mediastinal or hilar lymph nodes. Heart is not enlarged. Pulmonary artery is unremarkable. No pulmonary mass is identified. Visualized tracheobronchial tree is patent. No pneumothorax. No focal pulmonary consolidation. No pulmonary mass. No pleural effusion. Small opacities in the lower lobes. Minimal multilevel degenerative change in the thoracic spine. IMPRESSION: 1. No pulmonary embolism identified. 2. Small opacities in the lower lobes. Differential includes atelectasis/scarring or an inflammatory/infectious process. 3. Moderate to large hiatal hernia. Reviewed, dictated and finalized at location A. Assessment and Plan Assessment and plan (1) Non-ST elevation LA (NSTEMI): Code(s): I21.4 - Non-ST elevation (NSTEMI) myocardial infarction Status: Acute Assessment and Plan: -Chest pressure that comes and goes over past couple weeks, worse today than previously -Elevated troponin which peaked on second sample then started to downtrend -Heparin drip started in ER and Cardiology consulted -Echocardiogram ordered, Takotsubo syndrome suspected as patient's mother just recently -Family history with father passing away from ACS at age 69 -History of GERD and may have been ignoring warning signs (2) Takotsubo syndrome: Code(s): I51.81 - Takotsubo syndrome Status: Acute Assessment and Plan: -See above (3) Mixed hyperlipidemia: Code(s): E78.2 - Mixed hyperlipidemia Status: Acute Assessment and Plan: -lipid panel ordered in AM -Continue statin (4) Iron deficiency anemia: Qualifiers: Iron deficiency anemia type: other iron deficiency Qualified Code(s): D50.8 - Other iron deficiency anemias Code(s): D50.9 - Iron deficiency anemia, unspecified Status: Chronic Assessment and Plan: -Patient gets iron infusions a few times a year -HGB 15.7, HCT 46.6 with normal MCH, MCHC and MCV -No iron studies on this visit (5) Anxiety disorder, unspecified: Qualifiers: Anxiety disorder type: generalized anxiety disorder Qualified Code(s): F41.1 - Generalized anxiety disorder Code(s): F41.9 - Anxiety disorder, unspecified Status: Acute Assessment and Plan: -Patient reports history of anxiety and depression -Continue mirtazapine, gabapentin and alprazolam per home medication history -Hx of fibromyalgia noted as well (6) Reactive depression: Code(s): F32.9 - Major depressive disorder, single episode, unspecified Status: Acute Assessment and Plan: -History anxiety and depression but patient recently lost his mother -No HI/SI/hallucinations Plan -Cardiology consult -Echo ordered -Continue heparin for now -Admit to IMU Quality VTE Prophylaxis VTE prophylaxis: pharmacologic ordered Hospitalist MIPS Advance Care Plan I have confirmed that the patient's Advanced Care Plan is present, code status is documented, or surrogate decision maker is listed in patient medical record.: Yes Medication Reconciliation I have utilized all available resources to obtain, update and review the patients current medications (includes all prescriptions, OTC, herbals, cannabis, and nutritional supplements).: Yes
[2025-06-18] MEDS: MIRTAZAPINE 7.5 MG TABLET PO (21:13)
[2025-06-18] MEDS: ALPRAZolam (*CRX) 0.5 MG TABLET PO (21:13)
[2025-06-18 21:49] LABS: Partial Thromboplastin Time 59.9 Seconds (22.3-36.8)
[2025-06-19] VITALS (19 sets, daily range): BP systolic 122–148; BP diastolic 69–106; PULSE 54–90; RESP 16–18; TEMP 36.5–36.9; O2SAT 96–99
--- NOTE | 2025-06-19 | ECHO_ITS ---
Patient Info Name: Sebastien Gee Age: 59 years : 1965 Gender: Male Ht: 74 in Wt: 170 lbs BSA: 2.00 m2 HR: 56 bpm BP: 122 / 69 mmHg Heart Rhythm: Sinus Rhythm Technical Quality: Good Exam Date: 06/19/2025 10:39 AM Patient Status: I Admit Date: 06/18/2025 Exam Type: CA echo doppler color flow Complete two-dimensional, color flow and Doppler transthoracic echocardiogram is performed. Staff Referring Physician: Herb Interiano Plant Breeder: Brenda Roy Attending Provider: Billy Rebollar Summary 1. Complete two-dimensional, color flow and Doppler transthoracic echocardiogram is performed. 2. Left ventricular chamber dimension is normal. 3. Left ventricular systolic function is normal, estimated at 55-60. 4. There is no increased left ventricular wall thickness. 5. The left ventricular diastolic function is grade I diastolic dysfunction. 6. The apical septum, and mid anteroseptal are hypokinetic. 7. There is mild mitral valve regurgitation. 8. There is mild tricuspid valve regurgitation. 9. There is mild pulmonic regurgitation. 10. There is mild aortic valve regurgitation. 11. There is mild aortic valve calcification. Left Ventricle Left ventricular chamber dimension is normal. Left ventricular systolic function is normal, estimated at 55-60. There is no increased left ventricular wall thickness. The left ventricular diastolic function is grade I diastolic dysfunction. The apical septum, and mid anteroseptal are hypokinetic. All other malik appear normal. Right Ventricle Right ventricular chamber dimension is normal. Right ventricular systolic function is normal. Left Atria Left atrial chamber dimension is normal. Right Atria Right atrial chamber dimension is normal. Atrial Septum Intact interatrial septum visualized by color flow imaging. Aortic Valve The aortic valve is trileaflet. There is no aortic valve stenosis. There is mild aortic valve regurgitation. There is mild aortic valve calcification. Pulmonic Valve The pulmonic valve is normal. There is no pulmonic valve stenosis. There is mild pulmonic regurgitation. Mitral Valve The mitral valve has normal leaflets. There is no mitral valve stenosis. There is mild mitral valve regurgitation. Tricuspid Valve The tricuspid valve leaflets are normal. There is no significant tricuspid valve stenosis. There is mild tricuspid valve regurgitation. No pulmonary hypertension, estimated pulmonary arterial systolic pressure is 31 mmHg. Pericardium/Pleural The pericardium appears normal. There is no pericardial effusion. Inferior Vena Cava Normal inferior vena cava with >50% collapse upon inspiration consistent with normal right atrial pressure, 10 mmHg. Aorta The aortic root size at the sinus of Valsalva is normal. There is mild aortic atherosclerosis. Left Ventricular Outflow Tract Name Value Normal LVOT 2D LVOT Diameter 1.9 cm LVOT Doppler LVOT Peak Velocity 131 cm/s LVOT Peak Gradient 7 mmHg LVOT Mean Gradient 3 mmHg LVOT VTI 24 cm LVOT VTI/AV VTI Ratio 0.8 LVOT Stroke Volume 69 ml LVOT CO 13.8 l/min LVOT CI 6.9 l/min/m2 Pulmonic Valve Name Value Normal PV Doppler PV Peak Velocity 91 cm/s PV Peak Gradient 3 mmHg Mitral Valve Name Value Normal MV Diastolic Function MV E Peak Velocity 59 cm/s MV A Peak Velocity 74 cm/s MV E/A 0.8 MV Decel Time (PW) 332 ms MV Annular TDI MV E/e' (Septal) 8.2 MV E/e' (Lateral) 7.6 MV E/e' (Average) 7.9 Tricuspid Valve Name Value Normal TV Regurgitation Doppler TR Peak Velocity 230 cm/s TR Peak Gradient 17 mmHg Estimated PAP/RSVP RA Pressure 10 mmHg <=5 PA Systolic Pressure 31 mmHg <36 RV Systolic Pressure 31 mmHg <36 TV Annular TDI TV Lateral Marva s' Velocity 12.1 cm/s >=9.5 Aorta Name Value Normal Ascending Aorta Ao Root Diameter (MM) 3.0 cm Ao Root Diam Index (MM) 1.5 cm/m2 Aortic Valve Name Value Normal AV Doppler AV Peak Velocity 153 cm/s AV Peak Gradient 9 mmHg AV Mean Gradient 5 mmHg AV VTI 29 cm AV Area (Cont Eq VTI) 2.4 cm2 >=3.0 AV Area (Cont Eq Casey) 2.5 cm2 AV DI (Casey) 0.86 AV Regurgitation 2D LVOT Area 2.9 cm2 Ventricles Name Value Normal LV Dimensions 2D/MM IVS Diastolic Thickness (2D) 0.9 cm 0.6-1.0 LVID Diastole (2D) 4.2 cm 4.2-5.8 LVIW Diastolic Thickness (2D) 0.9 cm 0.6-1.0 LVID Systole (2D) 2.5 cm 2.5-4.0 LVOT Diameter 1.9 cm LV Mass (2D Cubed) 122.57 g 88.00-224.00 LV Mass Index (2D Cubed) 61 g/m2 49-115 Relative Wall Thickness (2D) 0.44 <=0.42 LV Fractional Shortening/Ejection Fraction 2D/MM LV Fractional Shortening (2D) 39 % 25-43 LV EF (2D Teichholz) 70 % LV Diastolic Volume (4C MOD) 95 ml LV EF (4C MOD) 50 % LV Diastolic Volume (2C MOD) 108 ml LV EF (2C MOD) 57 % LV Diastolic Volume (BP MOD) 107 ml 62-150 LV Diastolic Volume Index (BP MOD) 53 ml/m2 34-74 LV Systolic Volume (BP MOD) 49 ml 21-61 LV Systolic Volume Index (BP MOD) 25 ml/m2 11-31 LV EF (BP MOD) 54 % 52-72 LV Diastolic Length (4C) 8.0 cm LV Systolic Length (4C) 6.6 cm LV Stroke Volume (4C MOD) 47 ml RV Dimensions 2D/MM RVID Diastole (2D) 3.8 cm 2.1-3.5 Atria Name Value Normal LA Dimensions LA Dimension (MM) 3.5 cm 3.0-4.0 LA Volume (4C A-L) 52 ml LA Volume (BP A-L) 52 ml RA Dimensions RA Systolic Major [place] Length (4C) 4.5 cm 2.1-2.7 RA Area (4C) 13.8 cm2 <=18.0 Wall Motion Scoring Wall Motion Scoring Index: 1.12 Report Signatures
[2025-06-19 04:54] LABS: Hematocrit 45.6 % (42.0-52.0); Hemoglobin 15.2 g/dL (14.0-18.0); Immature Granulocyte Percent A 0.4 % (0-0.5); Lymphocytes Absolute Auto 1.23 K/mm3 (0.9-3.2); Mean Corpuscular HGB Conc 33.3 g/dl (32-36); Mean Corpuscular Hemoglobin 30.5 pg (26-34); Mean Corpuscular Volume 91.4 fl (80-100); Nucleated Red Blood Cells Absolute Auto 0.000 K/mm3 (0.0-0.012); Nucleated Red Blood Cells Perc 0.0 % (0.0-0.2); Platelet Count Result 173 k/mm3 (150-375); Red Blood Count 4.99 M/mm3 (4.6-6.20); White Blood Count 4.6 K/mm3 (4.5-10.0)
[2025-06-19 04:57] LABS: Hemoglobin A1C 5.7 % (<5.7)
[2025-06-19 05:02] LABS: Alanine Aminotransferase 26 U/L (6-50); Albumin Level 4.2 g/dL (3.5-5.1); Alkaline Phosphatase 69 U/L (38-126); Anion Gap 6 mmol/L (4-12); Aspartate Amino Transferase 32 U/L (17-59); Bilirubin,Total 1.0 mg/dL (0.2-1.3); Blood Urea Nitrogen 13 mg/dL (9-20); Calcium 9.4 mg/dL (8.4-10.2); Carbon Dioxide 28 mmol/L (22-30); Chloride 100 mmol/L (98-107); Estimated CRCL calculation 81 ml/min; Estimated Glomerular Filt Rate > 60; Glucose 95 mg/dL (65-110); Magnesium 1.9 mg/dL (1.6-2.3); Potassium 3.9 mmol/L (3.4-5.0); Sodium 134 mmol/L (137-145); Total Protein 7.2 g/dL (6.3-8.2)
[2025-06-19 05:11] LABS: Cholesterol 203 mg/dL (0-200); HDL Direct 61 mg/dL; Triglycerides 144 mg/dL (<150)
[2025-06-19 05:14] LABS: Troponin I 0.070 ng/mL (0.000-0.034)
[2025-06-19 05:15] LABS: Partial Thromboplastin Time 133.9 Seconds (22.3-36.8)
[2025-06-19] MEDS: ASPIRIN 81 MG CHEWABLE TABLET PO (08:25)
[2025-06-19] MEDS: ATORVASTATIN 10 MG TABLET PO (08:25)
[2025-06-19] MEDS: PANTOPRAZOLE 40 MG TABLET PO (08:25)
[2025-06-19 11:46] LABS: Partial Thromboplastin Time 59.3 Seconds (22.3-36.8)
[2025-06-19] MEDS: ACETAMINOPHEN 325 MG TABLET 650 MG PO (13:18)
--- NOTE | 2025-06-19 13:31 | P.CONCA_ITS ---
Assessment and Plan Assessment and plan (1) Non-ST elevation MO (NSTEMI): Code(s): I21.4 - Non-ST elevation (NSTEMI) myocardial infarction Status: Acute Assessment and Plan: Patient's symptoms are consistent with non ST-elevation myocardial infarction. Other possibilities do also exist including a takotsubo type of cardiomyopathy but until proven otherwise, cannot rule out obstructive CAD. Talked him about the risks, benefits alternatives of a cardiac catheterization in he is in agreement. Keep him on heparin drip for now. Aspirin 81 mg p.o. daily. Will increase his atorvastatin to 20 mg daily. Start metoprolol 25 mg p.o. b.i.d.. 2D echocardiogram Doppler is ordered and will be reviewed. Further workup and recommendations based on the results of the above tests (2) Mixed hyperlipidemia: Code(s): E78.2 - Mixed hyperlipidemia Status: Acute Assessment and Plan: Will increase atorvastatin (3) Hypothyroidism: Qualifiers: Hypothyroidism type: acquired Qualified Code(s): E03.9 - Hypothyroidism, unspecified Code(s): E03.9 - Hypothyroidism, unspecified Status: Acute (4) Apnea: Code(s): R06.81 - Apnea, not elsewhere classified Status: Acute Assessment and Plan: Encourage compliance (5) GERD (gastroesophageal reflux disease): Code(s): K21.9 - Gastro-esophageal reflux disease without esophagitis Status: Acute Assessment and Plan: Continue omeprazole History of Present Illness History of Present Illness Consult date/time: 06/19/25 13:31 Requesting physician: Fuentes Farnsworth, [id number] Consult reason: Other (Non-STEMI) Reason For Visit: nstemi,takotsubo Narrative: Date of service 06/19/2025 Reason for consultation: Non-STEMI Requesting provider: Fuentes Farnsworth History patient is a 59-year-old male has history of hyper lipidemia. He also has iron deficiency anemia and receives iron infusions on a periodically basis. He has been under more stress as of late due to the recent passing of his mother. She had been on hospice over the past month or so. This does correlate to when he started to have some episodes of chest pain. He has been having a couple of episodes per week where he will develop some chest pain with associated shortness of breath lasting for 30 seconds up to a couple minutes at a time. Yesterday however he had a severe episode it was much worse than previous. It was associated some shortness of breath. Came to the hospital initial troponin was negative and subsequent troponins have turned positive. Peak troponin is 0.245. Currently pain-free on heparin drip. He denies any exertional chest pain. No syncope, presyncope, paroxysmal nocturnal dyspnea, orthopnea, edema or palpitations. He has been drinking more alcohol than he usually does of this same time frame. Review of Systems 2 Review of Systems: All systems reviewed & are unremarkable except as noted in HPI and below Constitutional: Constitutional: Denies body ache(s) Eyes: Eyes: Denies blurry vision ENT: Reports Normal hearing present Cardiovascular: Cardiovascular: Reports chest pain Respiratory: Respiratory: Denies hemoptysis Gastrointestinal: Gastrointestinal: Denies abdominal pain Genitourinary: Genitourinary: Denies hematuria Musculoskeletal: Musculoskeletal: Denies arthralgias Integumentary/Breasts: Skin/Breast: Denies dry skin Neurologic: Denies confusion Psychiatric: Psychiatric: Denies anxiety Endocrine: Endocrine: Denies excessive sweating Hematologic/Lymphatic: Hematologic/Lymphatic: Denies easy bleeding Allergic/Immunologic: Allergic/Immunologic: Denies GI upset with certain foods PMFSH Past Medical History Medical History (Updated 06/19/25 @ 13:39 by Massimo De Santiago MD) GERD (gastroesophageal reflux disease) Poison zechariah Fatigue BMI 22.0-22.9, adult Need for vaccination Apnea De Quervain's disease (tenosynovitis) Hyperhidrosis Weight loss, unintentional BPH (benign prostatic hyperplasia) Knee abrasion BMI 27.0-27.9,adult Hypothyroidism BMI 26.0-26.9,adult Skin lesion of face Erectile dysfunction Psychophysiological insomnia Testosterone deficiency Surgical History Surgical History History of ankle surgery Family History Family History Grandparent Diabetes mellitus Father Acute myocardial infarction Mother Leukemia Cancer of vulva Cancer of kidney Other Family history of arthritis Family history of malignant neoplasm Social History Social History Smoking status: Never smoker Second hand tobacco smoke exposure: No Alcohol intake: current Drinks per week: 10 Substance use: current Substance use type: marijuana Last use: gummies at night to sleep. 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 Gender identity (if verbalized by the patient): Male Spiritual care concerns: No Meds Home Medications and Allergies Home Medications ?Medication ?Instructions ?Recorded ?Confirmed ?Type alprazolam 0.5 mg tablet 0.5 mg PO .QHS #90 tabs 01/24/25 06/18/25 Rx atorvastatin 10 mg tablet 10 mg PO DAILY #90 tabs 01/24/25 06/18/25 Rx mirtazapine 7.5 mg tablet 7.5 mg PO DAILY #90 tabs 01/24/25 06/18/25 Rx omeprazole 20 mg capsule,delayed 20 mg PO DAILY #90 caps 01/24/25 06/18/25 Rx release gabapentin 300 mg capsule 300 mg PO QHS PRN pain 06/18/25 06/18/25 History Allergies Allergy/AdvReac Type Severity Reaction Status Date / Time Penicillins AdvReac Mild Hives Verified 06/18/25 11:36 Vital Signs Vital Signs - 24 hr 06/18/25 13:55 06/18/25 18:29 06/18/25 19:32 Temperature 36.8 C Pulse Rate 81 76 69 Respiratory Rate 15 14 17 Blood Pressure 123/88 127/84 138/83 Pulse Oximetry 96 96 96 Oxygen Delivery 06/18/25 19:57 06/18/25 20:00 06/18/25 20:00 Temperature 36.9 C Pulse Rate 71 89 68 Respiratory Rate 17 Blood Pressure 142/85 H Pulse Oximetry 97 Oxygen Delivery Room Air 06/18/25 22:00 06/18/25 23:30 06/19/25 00:00 Temperature 36.9 C Pulse Rate 65 58 L 55 L Respiratory Rate 17 Blood Pressure 133/83 Pulse Oximetry 98 Oxygen Delivery 06/19/25 00:00 06/19/25 02:00 06/19/25 03:26 Temperature 36.7 C Pulse Rate 86 58 L 60 Respiratory Rate 17 Blood Pressure 122/69 Pulse Oximetry 96 Oxygen Delivery Room Air 06/19/25 04:00 06/19/25 04:00 06/19/25 06:00 Temperature Pulse Rate 58 L 86 59 L Respiratory Rate Blood Pressure Pulse Oximetry Oxygen Delivery Room Air 06/19/25 07:37 06/19/25 08:00 06/19/25 09:01 Temperature 36.5 C Pulse Rate 54 L 87 Respiratory Rate 16 Blood Pressure 145/88 H Pulse Oximetry 99 97 Oxygen Delivery Room Air 06/19/25 10:00 06/19/25 11:46 06/19/25 12:00 Temperature 36.8 C Pulse Rate 87 66 77 Respiratory Rate 18 Blood Pressure 136/82 Pulse Oximetry 99 Oxygen Delivery Exam 2 Narrative: Awake alert oriented. Appears stated age Const: General: comfortable and no acute distress HENMT: Ears: TM's normal bilaterally Face/Nose/Sinus: Normal nares present Eyes: General: appearance normal, both eyes and all related structures S clera: sclerae normal Neck: Neck: supple and no JVD Chest: Other: No reproducible chest wall pain to palpation Resp: Effort & Inspection: normal respiratory effort Auscultation: clear to auscultation bilaterally Cardio: Rate: regular rate Rhythm: regular rhythm Heart sounds: no murmurs GI: Inspection: non-distended GI Palp: Yes Soft to palpation A uscultation: normal bowel sounds Skin: General skin exam: normal color and no rashes or lesions noted Neuro: Speech: normal speech Sensory Exam: normal sensation Extrem: General: normal to inspection Psych: Mental Status: mental status grossly normal Affect: normal affect Results Labs and Meds 06/19/25 04:16 06/19/25 04:16 Lab results: Cardiac Enzymes 06/18/25 06/18/25 06/19/25 Range/Units 14:15 18:50 04:16 AST 32 (17-59) U/L Troponin I 0.245 H* D 0.225 H* 0.070 H* (0.000-0.034) ng/mL Coagulation 06/18/25 06/19/25 06/19/25 Range/Units 21:20 04:16 11:16 APTT 59.9 H 133.9 H 59.3 H (22.3-36.8) Seconds Lipids 06/19/25 Range/Units 04:16 Triglycerides 144 (<150) mg/dL Cholesterol 203 H (0-200) mg/dL CBC 06/19/25 Range/Units 04:16 WBC 4.6 (4.5-10.0) K/mm3 RBC 4.99 (4.6-6.20) M/mm3 Hgb 15.2 (14.0-18.0) g/dL Hct 45.6 (42.0-52.0) % Plt Count 173 (150-375) k/mm3 Lymph # (Auto) 1.23 (0.9-3.2) K/mm3 [place] # (Auto) 0.4 (0.1-0.6) K/mm3 Eos # (Auto) 0.1 (0-0.3) K/mm3 Baso # (Auto) 0.0 (0.0-0.1) K/mm3 Comprehensive Metabolic Panel 06/19/25 Range/Units 04:16 Sodium 134 L (137-145) mmol/L Potassium 3.9 (3.4-5.0) mmol/L Chloride 100 (98-107) mmol/L Carbon Dioxide 28 (22-30) mmol/L BUN 13 (9-20) mg/dL Creatinine 0.92 (0.7-1.3) mg/dL Glucose 95 (65-110) mg/dL Calcium 9.4 (8.4-10.2) mg/dL AST 32 (17-59) U/L ALT 26 (6-50) U/L Alkaline Phosphatase 69 (38-126) U/L Total Protein 7.2 (6.3-8.2) g/dL Albumin 4.2 (3.5-5.1) g/dL Intake and Output 06/18/25 06/19/25 06/19/25 23:59 07:59 15:59 Intake Total 61.0 78.5 62.6 Output Total 450 500 Balance -389.0 -421.5 62.6 Intake: IV 61.0 78.5 62.6 Heparin Sod/D5w 100 Units/ml 25 61.0 78.5 62.6 ,000 units In 250 ml @ 900 UNITS/HR 9 mls/hr IV CONT .Q24H [facility] Rx#:[id number] Output: Urine 450 500 Patient Weight 06/19/25 23:59 Weight 77.5 kg initial EKG is personally reviewed and independently interpreted showing sinus rhythm with septal T-wave inversions. Other EKGs are normal.
--- NOTE | 2025-06-19 15:07 | P.PNIM_ITS ---
Progress Note: A&P Assessment and Plan (1) Non-ST elevation HI (NSTEMI): Code(s): I21.4 - Non-ST elevation (NSTEMI) myocardial infarction Status: Acute Assessment and Plan: Chest pressure that comes and goes over past couple weeks, worse today than previously, patient with severe anxiety from recent loss of his mother a few days ago. Elevated troponin which peaked on second sample then started to downtrend. symptoms do appear consistent With ACS * continue heparin drip * continue ASA in statin daily * cardiology consulted * plan for cardiac catheterization in the a.m. 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 (2) Takotsubo syndrome: Code(s): I51.81 - Takotsubo syndrome Status: Acute Assessment and Plan: See above (3) Mixed hyperlipidemia: Code(s): E78.2 - Mixed hyperlipidemia Status: Acute Assessment and Plan: -Continue statin (4) Iron deficiency anemia: Qualifiers: Iron deficiency anemia type: other iron deficiency Qualified Code(s): D50.8 - Other iron deficiency anemias Code(s): D50.9 - Iron deficiency anemia, unspecified Status: Chronic Assessment and Plan: Patient gets iron infusions a few times a year * HGB 15.7, HCT 46.6 with normal MCH, MCHC and MCV * No iron studies on this visit * Trend H&H (5) Anxiety disorder, unspecified: Qualifiers: Anxiety disorder type: generalized anxiety disorder Qualified Code(s): F41.1 - Generalized anxiety disorder Code(s): F41.9 - Anxiety disorder, unspecified Status: Acute Assessment and Plan: Patient reports history of anxiety and depression * Continue mirtazapine, gabapentin and alprazolam per home medication history * Added PRN Ativan IVP for severe anxiety Plan Code status: Full code per patient DVT prophylaxis: Hep gtt Stress ulcer prophylaxis: Protonix 40 daily PT/OT notes: Ambulatory Disposition: Patient continues admission on IMCU for NSTEMI plan for cardiac catheterization in the a.m. patient is ambulatory and plan will be to discharge home when medically stable. Time Spent With Patient Time with patient: 15 - 25 minutes Subjective Date/time seen: 06/19/25 15:07 Interval history: Patient is a 59-year-old male admitted for further evaluation NSTEMI with plans for cardiac catheterization to rule out obstructive CAD and echo pending for possible takotsubo cardiomyopathy. 06/19/2025: patient seen severe anxiety secondary to recent loss of his mother and insert for heart attack. Patient currently denies any chest pressure chest pain no shortness of breath or palpitations. patient denies any nausea or vomiting but did have some diaphoresis. Review of Systems Review of Systems: All systems reviewed & are unremarkable except as noted in HPI and below Exam Narrative: GENERAL: Well-appearing, well-nourished, and in no acute distress. HEAD: Normocephalic, atraumatic. ENT:? Mucous membranes moist. CHEST: Clear to auscultation.? No respiratory distress. HEART: RRR ABDOMEN: Soft, nontender, nondistended. EXTREMITIES: Normal range of motion. No peripheral edema. SKIN: Warm dry normal color NEURO: Alert and oriented x3. PSYCH: Anxious and tearful Objective Data Vital Signs Vital Signs: Vital Signs - 24 hr 06/18/25 18:29 06/18/25 19:32 06/18/25 19:57 Temperature 98.2 F 98.4 F Pulse Rate 76 69 71 Respiratory Rate 14 17 17 Blood Pressure 127/84 138/83 142/85 H Pulse Oximetry 96 96 97 Oxygen Delivery 06/18/25 20:00 06/18/25 20:00 06/18/25 22:00 Temperature Pulse Rate 89 68 65 Respiratory Rate Blood Pressure Pulse Oximetry Oxygen Delivery Room Air 06/18/25 23:30 06/19/25 00:00 06/19/25 00:00 Temperature 98.4 F Pulse Rate 58 L 55 L 86 Respiratory Rate 17 Blood Pressure 133/83 Pulse Oximetry 98 Oxygen Delivery Room Air 06/19/25 02:00 06/19/25 03:26 06/19/25 04:00 Temperature 98.0 F Pulse Rate 58 L 60 58 L Respiratory Rate 17 Blood Pressure 122/69 Pulse Oximetry 96 Oxygen Delivery 06/19/25 04:00 06/19/25 06:00 06/19/25 07:37 Temperature 97.7 F Pulse Rate 86 59 L 54 L Respiratory Rate 16 Blood Pressure 145/88 H Pulse Oximetry 99 Oxygen Delivery Room Air 06/19/25 08:00 06/19/25 09:01 06/19/25 10:00 Temperature Pulse Rate 87 87 Respiratory Rate Blood Pressure Pulse Oximetry 97 Oxygen Delivery Room Air 06/19/25 11:46 06/19/25 12:00 06/19/25 14:00 Temperature 98.2 F Pulse Rate 66 77 65 Respiratory Rate 18 Blood Pressure 136/82 Pulse Oximetry 99 Oxygen Delivery Intake/Output Intake/Output: Intake & Output 06/16/25 06/17/25 06/18/25 06/19/25 23:59 23:59 23:59 23:59 Intake Total 1361.0 141.1 Output Total 450 500 Balance 911.0 -358.9 Meds/Results Medications: Active Medications Generic Name Dose Route Start Last Admin Trade Name Vanita PRN Reason Stop Dose Admin Acetaminophen 650 mg 06/19/25 13:12 06/19/25 13:18 Acetaminophen 325 Mg Tablet PO 650 mg Q6H PRN Administration Mild Pain (1-3) or Fever Alprazolam 0.5 mg 06/18/25 21:00 06/18/25 21:13 Alprazolam (*Crx) 0.5 Mg Tablet PO 0.5 mg HS FREDDIE Administration Aspirin 81 mg 06/19/25 08:00 06/19/25 08:25 Aspirin 81 Mg Chewable Tablet PO 81 mg DAILY@0800 FREDDIE Administration Atorvastatin Calcium 20 mg 06/20/25 09:00 Atorvastatin 20 Mg Tablet PO DAILY FREDDIE Gabapentin 300 mg 06/18/25 20:28 Gabapentin 300 Mg Capsule PO QHS PRN pain Heparin Sodium (Porcine) 4,000 units 06/18/25 14:55 Heparin Sodium 5,000 Units/Ml Vial IV PUSH PRN PRN aPTT less than 55 seconds Heparin Sodium (Porcine) 3,000 units 06/18/25 14:55 06/19/25 12:23 Heparin Sodium 5,000 Units/Ml Vial IV PUSH 3,000 units PRN PRN Administration aPTT 55 - 70 seconds Heparin Sodium/Dextrose 25,000 units in 250 mls @ 11 mls/hr 06/18/25 14:55 06/19/25 12:24 Heparin Sodium/D5w 100 Units/Ml IV CONT 1,100 units/hr .[id number] [facility] 11 mls/hr Titration Protocol 1,100 UNITS/HR Lorazepam 1 mg 06/19/25 14:22 Lorazepam Inj (*Crx) 2 Mg/Ml Vial IV PUSH Q6H PRN Anxiety Mirtazapine 7.5 mg 06/18/25 21:00 06/18/25 21:13 Mirtazapine 7.5 Mg Tablet PO 7.5 mg HS FREDDIE Administration Nitroglycerin 0.4 mg 06/18/25 16:07 Nitroglycerin Sl 0.4 Mg Tablet SUBLINGUAL Q5MIN PRN Chest Pain Pantoprazole Sodium 40 mg 06/19/25 09:00 06/19/25 08:25 Pantoprazole 40 Mg Tablet PO 40 mg QAM FREDDIE Administration Perflutren Lipid Microsphere 0 ml 06/19/25 01:16 Perflutren Lipid Microspheres 1.5 Ml Vial Diluted To 10 Ml Total Volume IV PUSH 06/22/25 01:16 ONCE PRN adequate visualization Protocol Radiology Results: ITS Impressions Chest X-Ray 06/18/25 12:38 IMPRESSION: 1. No acute pulmonary process identified. 2. Probable moderate to large hiatal hernia which has slightly increased in size as compared to the study from 07/31/2023. Consider a chest CT for further assessment. Chest CTA 06/18/25 13:30 IMPRESSION: 1. No pulmonary embolism identified. 2. Small opacities in the lower lobes. Differential includes atelectasis/scarring or an inflammatory/infectious process. 3. Moderate to large hiatal hernia. Labs Labs: Laboratory Results - last 24 hr 06/18/25 06/18/25 06/19/25 18:50 21:20 04:16 WBC 4.6 RBC 4.99 Hgb 15.2 Hct 45.6 MCV 91.4 MCH 30.5 MCHC 33.3 RDW 14.1 Plt Count 173 MPV 11.3 H Immature Gran % (Auto) 0.4 Neut % (Auto) 61.1 Lymph % (Auto) 26.6 [place] % (Auto) 9.3 H Eos % (Auto) 2.2 Baso % (Auto) 0.4 Lymph # (Auto) 1.23 [place] # (Auto) 0.4 Eos # (Auto) 0.1 Baso # (Auto) 0.0 Abs Immat Gran (auto) 0.02 Absolute Neuts (auto) 2.8 Absolute Nucleated RBC 0.000 Nucleated RBC % 0.0 APTT 59.9 H 133.9 H Sodium 134 L Potassium 3.9 Chloride 100 Carbon Dioxide 28 Anion Gap 6 BUN 13 Creatinine 0.92 Estim Creat Clear Calc 81 Estimated GFR > 60 Glucose 95 Hemoglobin A1c 5.7 Calcium 9.4 Magnesium 1.9 Total Bilirubin 1.0 AST 32 ALT 26 Alkaline Phosphatase 69 Troponin I 0.225 H* 0.070 H* Total Protein 7.2 Albumin 4.2 Triglycerides 144 Cholesterol 203 H LDL Cholesterol Direct 99 HDL Direct 61 06/19/25 11:16 WBC RBC Hgb Hct MCV MCH MCHC RDW Plt Count MPV Immature Gran % (Auto) Neut % (Auto) Lymph % (Auto) [place] % (Auto) Eos % (Auto) Baso % (Auto) Lymph # (Auto) [place] # (Auto) Eos # (Auto) Baso # (Auto) Abs Immat Gran (auto) Absolute Neuts (auto) Absolute Nucleated RBC Nucleated RBC % APTT 59.3 H Sodium Potassium Chloride Carbon Dioxide Anion Gap BUN Creatinine Estim Creat Clear Calc Estimated GFR Glucose Hemoglobin A1c Calcium Magnesium Total Bilirubin AST ALT Alkaline Phosphatase Troponin I Total Protein Albumin Triglycerides Cholesterol LDL Cholesterol Direct HDL Direct Quality VTE Prophylaxis VTE prophylaxis: pharmacologic ordered -Patient's previous records reviewed on admission -ER notes reviewed in detail on admission -discussed all findings and current treatment plan with patient/Family/POA -Consultations reviewed for recommendations -Patient's disposition for safe discharge discussed with caseworker Dictation performed by [employer] direct speech recognition software, therefore law secretary variants and typographical errors may occur. Hospitalist MIPS Advance Care Plan I have confirmed that the patient's Advanced Care Plan is present, code status is documented, or surrogate decision maker is listed in patient medical record.: Yes Medication Reconciliation I have utilized all available resources to obtain, update and review the patients current medications (includes all prescriptions, OTC, herbals, cannabi s, and nutritional supplements).: Yes The patient is not eligible for med reconciliation; the patient is in a emergent medical situation where delaying treatment would jeopardize the patients health.: No
[2025-06-19] MEDS: HEPARIN SOD/D5W 100 UNITS/ML 25,000 UNITS/250 ML BAG 11 UNITS IV CONT (16:52)
[2025-06-19 19:34] LABS: Partial Thromboplastin Time 91.1 Seconds (22.3-36.8)
[2025-06-19] MEDS: ALPRAZolam (*CRX) 0.5 MG TABLET PO (20:30)
[2025-06-19] MEDS: MIRTAZAPINE 7.5 MG TABLET PO (20:30)
[2025-06-20] VITALS (25 sets, daily range): BP systolic 109–156; BP diastolic 77–102; PULSE 52–71; RESP 16–18; TEMP 36.3–36.9; O2SAT 97–100
[2025-06-20 01:04] LABS: Partial Thromboplastin Time 115.5 Seconds (22.3-36.8)
[2025-06-20 07:19] LABS: Hematocrit 45.6 % (42.0-52.0); Hemoglobin 15.2 g/dL (14.0-18.0); Immature Granulocyte Percent A 0.4 % (0-0.5); Lymphocytes Absolute Auto 1.11 K/mm3 (0.9-3.2); Mean Corpuscular HGB Conc 33.3 g/dl (32-36); Mean Corpuscular Hemoglobin 30.5 pg (26-34); Mean Corpuscular Volume 91.4 fl (80-100); Nucleated Red Blood Cells Absolute Auto 0.000 K/mm3 (0.0-0.012); Nucleated Red Blood Cells Perc 0.0 % (0.0-0.2); Platelet Count Result 168 k/mm3 (150-375); Red Blood Count 4.99 M/mm3 (4.6-6.20); White Blood Count 4.8 K/mm3 (4.5-10.0)
[2025-06-20 07:32] LABS: Partial Thromboplastin Time 76.0 Seconds (22.3-36.8)
[2025-06-20 07:44] LABS: Alanine Aminotransferase 29 U/L (6-50); Albumin Level 4.1 g/dL (3.5-5.1); Alkaline Phosphatase 68 U/L (38-126); Anion Gap 5 mmol/L (4-12); Aspartate Amino Transferase 32 U/L (17-59); Bilirubin,Total 0.6 mg/dL (0.2-1.3); Blood Urea Nitrogen 17 mg/dL (9-20); Calcium 9.2 mg/dL (8.4-10.2); Carbon Dioxide 26 mmol/L (22-30); Chloride 105 mmol/L (98-107); Estimated CRCL calculation 84 ml/min; Estimated Glomerular Filt Rate > 60; Glucose 101 mg/dL (65-110); Magnesium 1.9 mg/dL (1.6-2.3); Potassium 4.0 mmol/L (3.4-5.0); Sodium 136 mmol/L (137-145); Total Protein 7.1 g/dL (6.3-8.2)
[2025-06-20] MEDS: ATORVASTATIN 20 MG TABLET PO (08:58)
[2025-06-20] MEDS: ASPIRIN 81 MG CHEWABLE TABLET PO (08:58)
[2025-06-20] MEDS: PANTOPRAZOLE 40 MG TABLET PO (08:58)
--- NOTE | 2025-06-20 09:24 | P.PNIM_ITS ---
Progress Note: A&P Assessment and Plan (1) Non-ST elevation [place] (NSTEMI): Code(s): I21.4 - Non-ST elevation (NSTEMI) myocardial infarction Status: Acute Assessment and Plan: Chest pressure that comes and goes over past couple weeks, worse today than previously, patient with severe anxiety from recent loss of his mother a few days ago. Elevated troponin which peaked on second sample then started to downtrend. symptoms do appear consistent With ACS, Cardiology consulted * heparin stopped post cath * continue ASA added Brilinta and 20mg statin daily * cardiology recommends starting metoprolol 25 mg b.i.d. * cardiac catheterization 06/20/2025: Stent x 1 Proximal to mid LAD * Echocardiogram ordered, Diastolic dysfunction grade 1 LVEF of 50-60% with apical septum and mid anteroseptal hypokinetic * continuous telemetry monitor (2) Mixed hyperlipidemia: Code(s): E78.2 - Mixed hyperlipidemia Status: Acute Assessment and Plan: -Continue statin increased to 20mg (3) Iron deficiency anemia: Qualifiers: Iron deficiency anemia type: other iron deficiency Qualified Code(s): D50.8 - Other iron deficiency anemias Code(s): D50.9 - Iron deficiency anemia, unspecified Status: Chronic Assessment and Plan: Patient gets iron infusions a few times a year * HGB 15.7, HCT 46.6 with normal MCH, MCHC and MCV * No iron studies on this visit * Trend H&H (4) Anxiety disorder, unspecified: Qualifiers: Anxiety disorder type: generalized anxiety disorder Qualified Code(s): F41.1 - Generalized anxiety disorder Code(s): F41.9 - Anxiety disorder, unspecified Status: Acute Assessment and Plan: Patient reports history of anxiety and depression * Continue mirtazapine, gabapentin and alprazolam per home medication history * Added PRN Ativan IVP for severe anxiety (5) CAD (coronary artery disease): Code(s): I25.10 - Atherosclerotic heart disease of [place] coronary artery without angina pectoris Status: Acute Assessment and Plan: SEE ABOVE NSTEMI Plan Code status: Full code per patient DVT prophylaxis: Hep gtt Stress ulcer prophylaxis: Protonix 40 daily PT/OT notes: Ambulatory Disposition: Patient continues admission on IMU for NSTEMI post cath with stent x 1 to LAD monitor overnight plan for discharge home tomorrow Time Spent With Patient Time with patient: 15 - 25 minutes Subjective Date/time seen: 06/20/25 09:24 Interval history: Patient is a 59-year-old male admitted for further evaluation NSTEMI with plans for cardiac catheterization to rule out obstructive CAD and echo pending for possible takotsubo cardiomyopathy. 06/20/2025: Patient seen post cath with stent placement x1. Patient denies any CP or SOB mild to moderate pain a right femoral catheter site. Patient still anxious and tearful. Review of Systems Review of Systems: All systems reviewed & are unremarkable except as noted in HPI and below Exam Narrative: GENERAL: Well-appearing, well-nourished, and in no acute distress. HEAD: Normocephalic, atraumatic. ENT:? Mucous membranes moist. CHEST: Clear to auscultation.? No respiratory distress. HEART: RRR ABDOMEN: Soft, nontender, nondistended. EXTREMITIES: Normal range of motion. No peripheral edema. SKIN: Warm dry normal color NEURO: Alert and oriented x3. PSYCH: Anxious and tearful Objective Data Vital Signs Vital Signs: Vital Signs - 24 hr 06/19/25 10:00 06/19/25 11:46 06/19/25 12:00 Temperature 98.2 F Pulse Rate 87 66 77 Respiratory Rate 18 Blood Pressure 136/82 Pulse Oximetry 99 Oxygen Delivery 06/19/25 14:00 06/19/25 15:54 06/19/25 16:00 Temperature 98.2 F Pulse Rate 65 90 86 Respiratory Rate 18 Blood Pressure 143/106 H Pulse Oximetry 98 Oxygen Delivery 06/19/25 18:00 06/19/25 19:39 06/19/25 20:00 Temperature 98.2 F Pulse Rate 89 81 72 Respiratory Rate 17 Blood Pressure 148/91 H Pulse Oximetry 97 Oxygen Delivery 06/19/25 22:00 06/19/25 23:49 06/20/25 00:00 Temperature 98.4 F Pulse Rate 65 67 Respiratory Rate 17 Blood Pressure 132/86 Pulse Oximetry 98 Oxygen Delivery 06/20/25 00:06 06/20/25 02:00 06/20/25 03:44 Temperature 97.8 F Pulse Rate 62 64 Respiratory Rate 17 Blood Pressure 135/82 Pulse Oximetry 98 100 Oxygen Delivery Room Air 06/20/25 04:00 06/20/25 06:00 06/20/25 07:50 Temperature 97.3 F L Pulse Rate 65 68 70 Respiratory Rate 18 Blood Pressure 130/85 Pulse Oximetry 99 Oxygen Delivery Intake/Output Intake/Output: Intake & Output 06/17/25 06/18/25 06/19/25 06/20/25 23:59 23:59 23:59 23:59 Intake Total 1361.0 453.4 66.4 Output Total 450 700 Balance 911.0 -246.6 66.4 Meds/Results Medications: Active Medications Generic Name Dose Route Start Last Admin Trade Name Freq PRN Reason Stop Dose Admin Acetaminophen 650 mg 06/19/25 13:12 06/19/25 13:18 Acetaminophen 325 Mg Tablet PO 650 mg Q6H PRN Administration Mild Pain (1-3) or Fever Alprazolam 0.5 mg 06/18/25 21:00 06/19/25 20:30 Alprazolam (*Crx) 0.5 Mg Tablet PO 0.5 mg HS FREDDIE Administration Aspirin 81 mg 06/19/25 08:00 06/20/25 08:58 Aspirin 81 Mg Chewable Tablet PO 81 mg DAILY@0800 FREDDIE Administration Atorvastatin Calcium 20 mg 06/20/25 09:00 06/20/25 08:58 Atorvastatin 20 Mg Tablet PO 20 mg DAILY FREDDIE Administration Gabapentin 300 mg 06/18/25 20:28 Gabapentin 300 Mg Capsule PO QHS PRN pain Heparin Sodium (Porcine) 4,000 units 06/18/25 14:55 Heparin Sodium 5,000 Units/Ml Vial IV PUSH PRN PRN aPTT less than 55 seconds Heparin Sodium (Porcine) 3,000 units 06/18/25 14:55 06/19/25 12:23 Heparin Sodium 5,000 Units/Ml Vial IV PUSH 3,000 units PRN PRN Administration aPTT 55 - 70 seconds Heparin Sodium/Dextrose 25,000 units in 250 mls @ 9 mls/hr 06/18/25 14:55 06/20/25 01:07 Heparin Sodium/D5w 100 Units/Ml IV CONT 900 units/hr .Q24H FREDDIE 9 mls/hr Titration Protocol 900 UNITS/HR Lorazepam 1 mg 06/19/25 14:22 Lorazepam Inj (*Crx) 2 Mg/Ml Vial IV PUSH Q6H PRN Anxiety Mirtazapine 7.5 mg 06/18/25 21:00 06/19/25 20:30 Mirtazapine 7.5 Mg Tablet PO 7.5 mg HS FREDDIE Administration Nitroglycerin 0.4 mg 06/18/25 16:07 Nitroglycerin Sl 0.4 Mg Tablet SUBLINGUAL Q5MIN PRN Chest Pain Pantoprazole Sodium 40 mg 06/19/25 09:00 06/20/25 08:58 Pantoprazole 40 Mg Tablet PO 40 mg QAM FREDDIE Administration Perflutren Lipid Microsphere 0 ml 06/19/25 01:16 Perflutren Lipid Microspheres 1.5 Ml Vial Diluted To 10 Ml Total Volume IV PU SH 06/22/25 01:16 ONCE PRN adequate visualization Protocol Radiology Results: ITS Impressions Chest X-Ray 06/18/25 12:38 IMPRESSION: 1. No acute pulmonary process identified. 2. Probable moderate to large hiatal hernia which has slightly increased in size as compared to the study from 07/31/2023. Consider a chest CT for further assessment. Chest CTA 06/18/25 13:30 IMPRESSION: 1. No pulmonary embolism identified. 2. Small opacities in the lower lobes. Differential includes atelectasis/scarring or an inflammatory/infectious process. 3. Moderate to large hiatal hernia. Labs Labs: Laboratory Results - last 24 hr 06/19/25 06/19/25 06/20/25 11:16 19:03 00:46 WBC RBC Hgb Hct MCV MCH MCHC RDW Plt Count MPV Immature Gran % (Auto) Neut % (Auto) Lymph % (Auto) [place] % (Auto) Eos % (Auto) Baso % (Auto) Lymph # (Auto) [place] # (Auto) Eos # (Auto) Baso # (Auto) Abs Immat Gran (auto) Absolute Neuts (auto) Absolute Nucleated RBC Nucleated RBC % APTT 59.3 H 91.1 H 115.5 H Sodium Potassium Chloride Carbon Dioxide Anion Gap BUN Creatinine Estim Creat Clear Calc Estimated GFR Glucose Calcium Magnesium Total Bilirubin AST ALT Alkaline Phosphatase Total Protein Albumin 06/20/25 07:10 WBC 4.8 RBC 4.99 Hgb 15.2 Hct 45.6 MCV 91.4 MCH 30.5 MCHC 33.3 RDW 14.4 Plt Count 168 MPV 10.8 H Immature Gran % (Auto) 0.4 Neut % (Auto) 66.5 Lymph % (Auto) 23.1 [place] % (Auto) 7.9 Eos % (Auto) 1.7 Baso % (Auto) 0.4 Lymph # (Auto) 1.11 [place] # (Auto) 0.4 Eos # (Auto) 0.1 Baso # (Auto) 0.0 Abs Immat Gran (auto) 0.02 Absolute Neuts (auto) 3.2 Absolute Nucleated RBC 0.000 Nucleated RBC % 0.0 APTT 76.0 H Sodium 136 L Potassium 4.0 Chloride 105 Carbon Dioxide 26 Anion Gap 5 BUN 17 Creatinine 0.92 Estim Creat Clear Calc 84 Estimated GFR > 60 Glucose 101 Calcium 9.2 Magnesium 1.9 Total Bilirubin 0.6 AST 32 ALT 29 Alkaline Phosphatase 68 Total Protein 7.1 Albumin 4.1 Quality VTE Prophylaxis VTE prophylaxis: pharmacologic ordered -Patient's previous records reviewed on admission -ER notes reviewed in detail on admission -discussed all findings and current treatment plan with patient/Family/POA -Consultations reviewed for recommendations -Patient's disposition for safe discharge discussed with case reviewer Dictation performed by [employer] direct speech recognition software, therefore stitch bonding machine operator variants and typographical errors may occur. Hospitalist MIPS Advance Care Plan I have confirmed that the patient's Advanced Care Plan is present, code status is documented, or surrogate decision maker is listed in patient medical record.: Yes Medication Reconciliation I have utilized all available resources to obtain, update and review the patients current medications (includes all prescriptions, OTC, herbals, cannabis, and nutritional supplements).: Yes The patient is not eligible for med reconciliation; the patient is in a emergent medical situation where delaying treatment would jeopardize the patients health.: No
--- NOTE | 2025-06-20 12:26 | P.SEDATION_ITS ---
Moderate Sedation Note-Pt Data Patient Data Diagnosis: NSTEMI Present Complaint: Chest pain Procedure to be performed/Plan: Coronary angiogram Allergies Allergy/AdvReac Type Severity Reaction Status Date / Time Penicillins AdvReac Mild Hives Verified 06/18/25 11:36 Home Medications ?Medication ?Instructions ?Recorded ?Confirmed ?Type alprazolam 0.5 mg tablet 0.5 mg PO .QHS #90 tabs 01/24/25 06/18/25 Rx atorvastatin 10 mg tablet 10 mg PO DAILY #90 tabs 01/24/25 06/18/25 Rx mirtazapine 7.5 mg tablet 7.5 mg PO DAILY #90 tabs 01/24/25 06/18/25 Rx omeprazole 20 mg capsule,delayed 20 mg PO DAILY #90 caps 01/24/25 06/18/25 Rx release gabapentin 300 mg capsule 300 mg PO QHS PRN pain 06/18/25 06/18/25 History Current Medications: Active Medications Acetaminophen (Acetaminophen 325 Mg Tablet) 650 mg PO Q6H PRN PRN Reason: Mild Pain (1-3) or Fever Last Admin: 06/19/25 13:18 Dose: 650 mg Alprazolam (Alprazolam (*Crx) 0.5 Mg Tablet) 0.5 mg PO HS FREDDIE Last Admin: 06/19/25 20:30 Dose: 0.5 mg Aspirin (Aspirin 81 Mg Chewable Tablet) 81 mg PO DAILY@0800 [facility] Last Admin: 06/20/25 08:58 Dose: 81 mg Atorvastatin Calcium (Atorvastatin 20 Mg Tablet) 20 mg PO DAILY FREDDIE Last Admin: 06/20/25 08:58 Dose: 20 mg Gabapentin (Gabapentin 300 Mg Capsule) 300 mg PO QHS PRN PRN Reason: pain Heparin Sodium (Porcine) (Heparin Sodium 5,000 Units/Ml Vial) 4,000 units IV PUSH PRN PRN PRN Reason: aPTT less than 55 seconds Heparin Sodium (Porcine) (Heparin Sodium 5,000 Units/Ml Vial) 3,000 units IV PUSH PRN PRN PRN Reason: aPTT 55 - 70 seconds Last Admin: 06/19/25 12:23 Dose: 3,000 units Heparin Sodium/Dextrose (Heparin Sodium/D5w 100 Units/Ml) 25,000 units in 250 mls @ 9 mls/hr IV CONT .Q24H FREDDIE; Protocol Last Titration: 06/20/25 01:07 Dose: 900 units/hr, 9 mls/hr Lorazepam (Lorazepam Inj (*Crx) 2 Mg/Ml Vial) 1 mg IV PUSH Q6H PRN PRN Reason: Anxiety Mirtazapine (Mirtazapine 7.5 Mg Tablet) 7.5 mg PO HS [facility] Last Admin: 06/19/25 20:30 Dose: 7.5 mg Nitroglycerin (Nitroglycerin Sl 0.4 Mg Tablet) 0.4 mg SUBLINGUAL Q5MIN PRN PRN Reason: Chest Pain Pantoprazole Sodium (Pantoprazole 40 Mg Tablet) 40 mg PO QAM [facility] Last Admin: 06/20/25 08:58 Dose: 40 mg Perflutren Lipid Microsphere (Perflutren Lipid Microspheres 1.5 Ml Vial Diluted To 10 Ml Total Volume) 0 ml IV PUSH ONCE PRN; Protocol PRN Reason: adequate visualization Stop: 06/22/25 01:16 Sedation/Anesthesia: No previous sedation/anesthesia problems (including family history). [facility] Past Medical History Medical History GERD (gastroesophageal reflux disease) Poison zechariah Fatigue BMI 22.0-22.9, adult Need for vaccination Apnea De Quervain's disease (tenosynovitis) Hyperhidrosis Weight loss, unintentional BPH (benign prostatic hyperplasia) Knee abrasion BMI 27.0-27.9,adult Hypothyroidism BMI 26.0-26.9,adult Skin lesion of face Erectile dysfunction Psychophysiological insomnia Testosterone deficiency Surgical History Surgical History History of ankle surgery Family History Family History Grandparent Diabetes mellitus Father Acute myocardial infarction Mother Leukemia Cancer of vulva Cancer of kidney Other Family history of arthritis Family history of malignant neoplasm Social History Social History Smoking status: Never smoker Second hand tobacco smoke exposure: No Alcohol intake: current Drinks per week: 10 Substance use: current Substance use type: marijuana Last use: gummies at night to sleep. 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 Gender identity (if verbalized by the patient): Male Spiritual care concerns: No Mod Sed Physical Exam Physical Exam Pre Procedural Exam: Normal: Appearance, Eyes, Ears, Nose, Neck, Throat, Airway, Lungs, Heart Size, Heart Rate, Heart Rhythm, Neuro Exam, Abdomen, Liver, Kidneys, Spleen, Breasts, Genitalia, Extremities and Skin Hours since solid foods: 8 Hours since liquid intake: 8 Mallampati Classification: class 1 Internal Medicine - PN: Obj Da Vital Signs Vital Signs: Vital Signs - 24 hr 06/19/25 14:00 06/19/25 15:54 06/19/25 16:00 Temperature 36.8 C Pulse Rate 65 90 86 Respiratory Rate 18 Blood Pressure 143/106 H Pulse Oximetry 98 Oxygen Delivery 06/19/25 18:00 06/19/25 19:39 06/19/25 20:00 Temperature 36.8 C Pulse Rate 89 81 72 Respiratory Rate 17 Blood Pressure 148/91 H Pulse Oximetry 97 Oxygen Delivery 06/19/25 22:00 06/19/25 23:49 06/20/25 00:00 Temperature 36.9 C Pulse Rate 65 67 Respiratory Rate 17 Blood Pressure 132/86 Pulse Oximetry 98 Oxygen Delivery 06/20/25 00:06 06/20/25 02:00 06/20/25 03:44 Temperature 36.6 C Pulse Rate 62 64 Respiratory Rate 17 Blood Pressure 135/82 Pulse Oximetry 98 100 Oxygen Delivery Room Air 06/20/25 04:00 06/20/25 06:00 06/20/25 07:50 Temperature 36.3 C L Pulse Rate 65 68 70 Respiratory Rate 18 Blood Pressure 130/85 Pulse Oximetry 99 Oxygen Delivery 06/20/25 08:00 Temperature Pulse Rate Respiratory Rate Blood Pressure Pulse Oximetry Oxygen Delivery Room Air Intake/Output Intake/Output: Intake & Output 06/17/25 06/18/25 06/19/25 06/20/25 23:59 23:59 23:59 23:59 Intake Total 1361.0 453.4 66.4 Output Total 450 700 Balance 911.0 -246.6 66.4 Meds/Results Medications: Active Medications Generic Name Dose Route Start Last Admin Trade Name Freq PRN Reason Stop Dose Admin Acetaminophen 650 mg 06/19/25 13:12 06/19/25 13:18 Acetaminophen 325 Mg Tablet PO 650 mg Q6H PRN Administration Mild Pain (1-3) or Fever Alprazolam 0.5 mg 06/18/25 21:00 06/19/25 20:30 Alprazolam (*Crx) 0.5 Mg Tablet PO 0.5 mg HS FREDDIE Administration Aspirin 81 mg 06/19/25 08:00 06/20/25 08:58 Aspirin 81 Mg Chewable Tablet PO 81 mg DAILY@0800 FREDDIE Administration Atorvastatin Calcium 20 mg 06/20/25 09:00 06/20/25 08:58 Atorvastatin 20 Mg Tablet PO 20 mg DAILY FREDDIE Administration Gabapentin 300 mg 06/18/25 20:28 Gabapentin 300 Mg Capsule PO QHS PRN pain Heparin Sodium (Porcine) 4,000 units 06/18/25 14:55 Heparin Sodium 5,000 Units/Ml Vial IV PUSH PRN PRN aPTT less than 55 seconds Heparin Sodium (Porcine) 3,000 units 06/18/25 14:55 06/19/25 12:23 Heparin Sodium 5,000 Units/Ml Vial IV PUSH 3,000 units PRN PRN Administration aPTT 55 - 70 seconds Heparin Sodium/Dextrose 25,000 units in 250 mls @ 9 mls/hr 06/18/25 14:55 06/20/25 01:07 Heparin Sodium/D5w 100 Units/Ml IV CONT 900 units/hr .Q24H FREDDIE 9 mls/hr Titration Protocol 900 UNITS/HR Lorazepam 1 mg 06/19/25 14:22 Lorazepam Inj (*Crx) 2 Mg/Ml Vial IV PUSH Q6H PRN Anxiety Mirtazapine 7.5 mg 06/18/25 21:00 06/19/25 20:30 Mirtazapine 7.5 Mg Tablet PO 7.5 mg HS FREDDIE Administration Nitroglycerin 0.4 mg 06/18/25 16:07 Nitroglycerin Sl 0.4 Mg Tablet SUBLINGUAL Q5MIN PRN Chest Pain Pantoprazole Sodium 40 mg 06/19/25 09:00 06/20/25 08:58 Pantoprazole 40 Mg Tablet PO 40 mg QAM FREDDIE Administration Perflutren Lipid Microsphere 0 ml 06/19/25 01:16 Perflutren Lipid Microspheres 1.5 Ml Vial Diluted To 10 Ml Total Volume IV PUSH 06/22/25 01:16 ONCE PRN adequate visualization Protocol Radiology Results: ITS Impressions Chest X-Ray 06/18/25 12:38 IMPRESSION: 1. No acute pulmonary process identified. 2. Probable moderate to large hiatal hernia which has slightly increased in size as compared to the study from 07/31/2023. Consider a chest CT for further assessment. Chest CTA 06/18/25 13:30 IMPRESSION: 1. No pulmonary embolism identified. 2. Small opacities in the lower lobes. Differential includes atelectasis/scarring or an inflammatory/infectious process. 3. Moderate to large hiatal hernia. Labs 06/20/25 07:10 06/20/25 07:10 Labs: Laboratory Results - last 24 hr 06/19/25 06/20/25 06/20/25 19:03 00:46 07:10 WBC 4.8 RBC 4.99 Hgb 15.2 Hct 45.6 MCV 91.4 MCH 30.5 MCHC 33.3 RDW 14.4 Plt Count 168 MPV 10.8 H Immature Gran % (Auto) 0.4 Neut % (Auto) 66.5 Lymph % (Auto) 23.1 [place] % (Auto) 7.9 Eos % (Auto) 1.7 Baso % (Auto) 0.4 Lymph # (Auto) 1.11 [place] # (Auto) 0.4 Eos # (Auto) 0.1 Baso # (Auto) 0.0 Abs Immat Gran (auto) 0.02 Absolute Neuts (auto) 3.2 Absolute Nucleated RBC 0.000 Nucleated RBC % 0.0 APTT 91.1 H 115.5 H 76.0 H Sodium 136 L Potassium 4.0 Chloride 105 Carbon Dioxide 26 Anion Gap 5 BUN 17 Creatinine 0.92 Estim Creat Clear Calc 84 Estimated GFR > 60 Glucose 101 Calcium 9.2 Magnesium 1.9 Total Bilirubin 0.6 AST 32 ALT 29 Alkaline Phosphatase 68 Total Protein 7.1 Albumin 4.1 ASA Classification/Sedation ASA Classification/Sedation ASA Class: I Emergent: No Risks: Risks, benefits and alternatives explained and patient/family accepted plan for sedation. Patient re-evaluated immediately prior to sedation.
--- NOTE | 2025-06-20 12:27 | P.PCNCC_ITS ---
Cardiac Cath Procedure Note Date of procedure:: 06/20/25 Performing physician:: Dwain Strong MD Date of service 06/20/2025 Indication:: NSTEMI Brief clinical history:: 59-year-old patient smoker with history of hyperlipidemia who presents to the hospital chest pain. Elevated troponins. Normal echo. Procedure Procedure performed:: 1-Moderate sedation that started at 11:42 a.m. and ended at 12:20 p.m. with a total duration 30 minutes using 2mg of Versed and 75mcg fentanyl. The registered nurse was ese cabrera. 2-Selective left and right coronary angiogram. 3-Left heart catheterization with measurement of LVEDP and measurement of gradient across aortic valve. 4-Right common femoral arterial angiogram. 5-Deployment of 6 [place] Angio-Seal. 6-intravascular ultrasound of the LAD. -7 deployment of a drug-eluting stent orsiro 3.5x22, the junction of proximal to mid LAD with deployment under nominal pressure for 20 seconds and then post dilated the proximal and the midportion the stent using 4 x 15 noncompliant balloon. Sedation/Medication given:: Moderate sedation. Access site:: Right common femoral artery. Estimated blood loss:: 10cc Procedure note:: After informed consent patient was brought in to manager cath lab with the was draped and prepped in usual manner. Moderate sedation was given and the right groin was infiltrated using 1% lidocaine. Five [place] sheath was obtained using micropuncture needle and the modified Seldinger technique. Selective left coronary angiogram was done using JL4 catheter with the tip of the catheter placed in the left main coronary artery. Selective right coronary angiogram was done using JR4 catheter with the tip of the catheter placed to the right coronary artery. After that 5 [place] pigtail catheter was advanced across the aortic valve into the left ventricle with measurement of LVEDP and measurement of gradient across aortic valve. After that six [place] guide catheter EBU 3.5 was advanced engaged the left main. Coronary wire BMW was advanced to distal LAD and then balloon angioplasty was done using 3 x 20 under nominal pressure for 20 seconds and then intravascular ultrasound done. Subsequently deployed drug-eluting stent orsiro 3.5 x 22 under nominal pressure for 20 seconds and then post dilated the proximal and midportion of the stent using 4 by 15 noncompliant balloon under normal pressure with 2 inflations each for 15 seconds. Right common femoral arterial angiogram was done. Findings:: 1- left coronary artery is a large artery that divides into large LAD, large circumflex artery. Left main is free of disease. 2- left anterior descending artery is a large artery that runs and wraps around the apex. 90% lesion junction the proximal and midportion of the LAD. Medium size diagonal branch post Angiomax unremarkable. The 3- leftcircumflex artery is a large artery and codominant with minimal irregula rities. 4- right coronary artery is medium in caliber with minimal irregularities. 5- LVEDP was 10 mm Hg and no gradient across aortic valve. 6- opening arterial pressure was 137/87 and closing pressure was 147/82 7- right femoral artery angiogram shows no significant disease in the right common femoral artery. Assessment and Plan Assessment and plan (1) Non-ST elevation [place] (NSTEMI): Code(s): I21.4 - Non-ST elevation (NSTEMI) myocardial infarction Status: Acute Plan -continue aspirin and Brilinta. -aggressive risk factor modification for CAD.
--- NOTE | 2025-06-20 12:27 | WPDHPUPDATE1 ---
History and Physical Update Update Date/Time: 06/20/25 12:27 History and Physical has been reviewed, including an updated exam of the patient. There are NO changes in the patient's condition. Risks, benefits, and alternatives have been discussed and questions answered. Patient agrees to proceed with procedure.
--- NOTE | 2025-06-20 12:44 | ECG_ITS ---
Test Date: 2025-06-20 13:02:36 Measurements Intervals [place] Rate: 60 P: 32 DC: 138 QRS: 89 QRSD: 93 T: 93 QT: 459 QTc: 459 Interpretive Statements SINUS RHYTHM ST DEVIATION AND MODERATE T-WAVE ABNORMALITY, CONSIDER ANTERIOR ISCHEMIA ABNORMAL ECG Compared to ECG 06/18/2025 18:51:49 POSSIBLE [address]MIA NOW PRESENT ST-T WAVE ABNORMALITY NOW PRESENT Electronically Signed On 06-20-2025 13:21:34 CDT by Vel Whitley D.O.
[2025-06-20] MEDS: ACETAMINOPHEN 325 MG TABLET 650 MG PO (17:20)
[2025-06-20] MEDS: LORazepam INJ (*CRX) 2 MG/ML VIAL 1 MG IV PUSH (17:21)
[2025-06-20] MEDS: SODIUM CHLORIDE 0.9% IV 1,000 ML 125 ML IV CONT (18:25)
[2025-06-20] MEDS: TICAGRELOR 90 MG TABLET PO (20:16)
[2025-06-20] MEDS: GABAPENTIN 300 MG CAPSULE PO (20:16)
[2025-06-20] MEDS: MIRTAZAPINE 7.5 MG TABLET PO (20:16)
[2025-06-20] MEDS: ALPRAZolam (*CRX) 0.5 MG TABLET PO (20:16)
[2025-06-21] VITALS (7 sets, daily range): BP systolic 127–143; BP diastolic 80–92; PULSE 55–71; RESP 16; TEMP 36.6–36.9; O2SAT 97–100
[2025-06-21 05:50] LABS: Hematocrit 45.4 % (42.0-52.0); Hemoglobin 14.4 g/dL (14.0-18.0); Immature Granulocyte Percent A 0.5 % (0-0.5); Lymphocytes Absolute Auto 0.96 K/mm3 (0.9-3.2); Mean Corpuscular HGB Conc 31.7 g/dl (32-36); Mean Corpuscular Hemoglobin 30.1 pg (26-34); Mean Corpuscular Volume 95.0 fl (80-100); Nucleated Red Blood Cells Absolute Auto 0.000 K/mm3 (0.0-0.012); Nucleated Red Blood Cells Perc 0.0 % (0.0-0.2); Platelet Count Result 168 k/mm3 (150-375); Red Blood Count 4.78 M/mm3 (4.6-6.20); White Blood Count 5.7 K/mm3 (4.5-10.0)
[2025-06-21 06:00] LABS: Alanine Aminotransferase 27 U/L (6-50); Albumin Level 4.1 g/dL (3.5-5.1); Alkaline Phosphatase 64 U/L (38-126); Anion Gap 6 mmol/L (4-12); Aspartate Amino Transferase 32 U/L (17-59); Bilirubin,Total 0.7 mg/dL (0.2-1.3); Blood Urea Nitrogen 14 mg/dL (9-20); Calcium 9.2 mg/dL (8.4-10.2); Carbon Dioxide 23 mmol/L (22-30); Chloride 106 mmol/L (98-107); Estimated CRCL calculation 80 ml/min; Estimated Glomerular Filt Rate > 60; Glucose 91 mg/dL (65-110); Magnesium 1.9 mg/dL (1.6-2.3); Potassium 4.3 mmol/L (3.4-5.0); Sodium 135 mmol/L (137-145); Total Protein 6.8 g/dL (6.3-8.2)
[2025-06-21] MEDS: PANTOPRAZOLE 40 MG TABLET PO (08:46)
[2025-06-21] MEDS: ATORVASTATIN 20 MG TABLET PO (08:46)
[2025-06-21] MEDS: TICAGRELOR 90 MG TABLET PO (08:47)
[2025-06-21] MEDS: ASPIRIN 81 MG CHEWABLE TABLET PO (08:50)
--- NOTE | 2025-06-21 08:56 | P.DS_ITS ---
DS: Admitting Diagnosis Discharge Date 06/21/2025 Admitting Diagnosis NSTEMI DS: Discharge Diagnosis Discharge Diagnosis (1) Non-ST elevation AL (NSTEMI): Code(s): I21.4 - Non-ST elevation (NSTEMI) myocardial infarction Status: Acute (2) Mixed hyperlipidemia: Code(s): E78.2 - Mixed hyperlipidemia Status: Acute (3) Iron deficiency anemia: Qualifiers: Iron deficiency anemia type: other iron deficiency Qualified Code(s): D50.8 - Other iron deficiency anemias Code(s): D50.9 - Iron deficiency anemia, unspecified Status: Chronic (4) Anxiety disorder, unspecified: Qualifiers: Anxiety disorder type: generalized anxiety disorder Qualified Code(s): F41.1 - Generalized anxiety disorder Code(s): F41.9 - Anxiety disorder, unspecified Status: Acute (5) CAD (coronary artery disease): Code(s): I25.10 - Atherosclerotic heart disease of [place] coronary artery without angina pectoris Status: Acute DS: Summary Hospital Course Reason for hospitalization: NSTEMI Hospital Course: Admission: This is a 59-year-old male patient with a history hyperlipidemia anxiety depression GERD fibromyalgia who was admitted to the hospital for chest pain with elevated troponins. Patient reports 2 weeks of intermittent chest heavi ness feeling like something is standing on his chest that comes and goes. No known association with activity or stress. Patient denies shortness of breath or cough denies cold or flu symptoms denies fever chills. Patient denies nausea or vomiting constipation or diarrhea or abdominal pain. Past 2 weeks patient's mother was placed hospice and over the weekend. This has prompted the patient to drink alcohol daily for the last several days where he usually does not drink daily. In the ED: patient with elevated troponins however Chest pain resolved without intervention in the emergency department. He did receive aspirin and with 2nd troponin being elevated was placed on a heparin drip in the ER with cardiology consult. Patient admitted to the IMU. Hospital Course: patient continues admission to IMU with plans for cardiac catheterization remained on heparin drip. cardiology initiated patient on daily ASA and added Brilinta post cardiac catheterization with an increase to his atorvastatin 20 mg daily as well as starting him on metoprolol 25 mg b.i.d. after cardiac catheterization placed 1 stent to the proximal to mid LAD. Echocardiogram was performed which showed a diastolic dysfunction grade 1 with an LVEF of 50-60% with a apical septum and mid anteroseptum hypokinesis. patient tolerated procedure well with no post-op complications. patient is seen and evaluated day of discharge ambulating on own and reported all symptoms had resolved no further chest pain, weakness or shortness breath. patient was discharged home with family need to follow up with Cardiology as scheduled. Status at Discharge Functional status at discharge: independent ambulation Overall status at discharge: patient is back to baseline Time Spent with Patient Time attestation: Total time spent providing and/or coordinating discharge services: Time spent: Greater than 30 minutes Exam Narrative: GENERAL: Well-appearing, well-nourished, and in no acute distress. HEAD: Normocephalic, atraumatic. ENT:? Mucous membranes moist. CHEST: Clear to auscultation.? No respiratory distress. HEART: RRR ABDOMEN: Soft, nontender, nondistended. EXTREMITIES: Normal range of motion. No peripheral edema. SKIN: Warm dry normal color NEURO: Alert and oriented x3. PSYCH: Anxious and tearful DS: Data Data Completed and Pending Labs on day of discharge: Labs from last 24 hours 06/21/25 04:42 WBC 5.7 RBC 4.78 Hgb 14.4 Hct 45.4 MCV 95.0 MCH 30.1 MCHC 31.7 L RDW 14.3 Plt Count 168 MPV 11.1 H Immature Gran % (Auto) 0.5 Neut % (Auto) 71.1 Lymph % (Auto) 16.8 L [place] % (Auto) 9.9 H Eos % (Auto) 1.4 Baso % (Auto) 0.3 Lymph # (Auto) 0.96 [place] # (Auto) 0.6 Eos # (Auto) 0.1 Baso # (Auto) 0.0 Abs Immat Gran (auto) 0.03 Absolute Neuts (auto) 4.1 Absolute Nucleated RBC 0.000 Nucleated RBC % 0.0 Sodium 135 L Potassium 4.3 Chloride 106 Carbon Dioxide 23 Anion Gap 6 BUN 14 Creatinine 0.97 Estim Creat Clear Calc 80 Estimated GFR > 60 Glucose 91 Calcium 9.2 Magnesium 1.9 Total Bilirubin 0.7 AST 32 ALT 27 Alkaline Phosphatase 64 Total Protein 6.8 Albumin 4.1 Imaging Radiologist's impression: Radiology Results: ITS Impressions Chest X-Ray 06/18/25 12:38 IMPRESSION: 1. No acute pulmonary process identified. 2. Probable moderate to large hiatal hernia which has slightly increased in size as compared to the study from 07/31/2023. Consider a chest CT for further assessment. Chest CTA 06/18/25 13:30 IMPRESSION: 1. No pulmonary embolism identified. 2. Small opacities in the lower lobes. Differential includes atelectasis/scarring or an inflammatory/infectious process. 3. Moderate to large hiatal hernia. Discharge Plan Discharge Attending physician on discharge: Billy Rebollar Consulting providers: Savanna Glasgow; Fuentes Farnsworth; Massimo De Santiago; Dwain Strong; Jose Mcfadden Discharging Clinician: Savanna Glasgow Anticipated Discharge Date/Time: 06/21/25 08:50 Patient Disposition: Home Activity: may shower, no straining and other - see discharge instructions Diet: heart healthy Discharge Instructions: 1). myocardial infarction * Monitor incision site for worsening swelling or excessive bruising/ hematoma and for any bleeding at the site if this occurs please apply immediate pressure in seek medical attention or call your tub tender * avoid repetitive motion to catheter incision site * no heavy lifting over 10 lb for least 2 weeks * may shower and clean site with soap and water keep dry * seek medical attention if you experience any chest pain, pressure or worsening shortness of breath * I have attached post heart catheterization information please review * follow-up with cardiology as scheduled * you are going to be on dual anti-platelet medications Brilinta and aspirin these are imperative to continue to take daily after stent placement this puts you at higher risk for bleeding * I have also increase your atorvastatin to 20 mg daily encourage heart healthy diet and follow-up lipid panels every 6 months to yearly How can you care for yourself at home? ? Keep track of any new symptoms or changes in your symptoms. ? Rest until you feel better. ? Be safe with medicines. Take your medicines exactly as prescribed. Call your doctor if you think you are having a problem with your medicine. ? Do not drive after taking a prescription pain medicine. ? Ensure to follow-up with primary care physician as indicated and provide updated medication list provided to you at discharge. When should you call for help? Call 911 anytime you think you may need emergency care. For example, call if: ? You passed out (lost consciousness). Call your doctor now or seek immediate medical care if: ? You have new symptoms like fever, difficulty breathing, Chest pain, vomiting, or rash. ? You have new or different pain. ? You are confused and are having trouble thinking clearly. ? Your symptoms are getting worse. Watch closely for changes in your health, and be sure to contact your doctor if: ? You do not get better as expected. [facility] [address] [place] [address] DISCHARGE INSTRUCTIONS - POST PCI Activity 1. No driving x 48 hours. 2. No lifting, pushing or pulling more than 10 pounds for 1 week. 3. No strenuous exercise or activity (including sexual activity) until you are released to do so. 4. May shower but no tub baths or swimming pool for 1 week. Avoid hot tubs. Medications DO NOT STOP YOUR MEDICATIONS ONLY YOUR ORACLE TECHNICAL DEVELOPER CAN STOP THE FOLLOWING MEDICATIONS - PLEASE CALL THE OFFICE WITH QUESTIONS. *Aspirin *Ticagrelor (Brilinta) *Atorvastatin Important Reminders 1. Keep your stent card in your wallet at all times 2. Follow a heart healthy diet paying extra attention to cholesterol and fats. 3. Stay hydrated. 4. If you have chest pain unrelieved by rest or nitroglycerin (if prescribed) call 911 immediately. 5. If you miss one dose of Brilinta (if prescribed) take a tablet at the next time due. If you miss 2 doses take a tablet when you remember and resume at the next time due. *For any other questions please call the office at [phone]. Office hours are 8AM 4:30PM Tuesday through Tuesday. Patient Instructions: Antibiotic Form, Heart Attack (GEN), Heart Healthy Diet (GEN), Acute Coronary Syndrome (DC), Heart Catheterization (DC) Patient Language: Montserratian Stand Alone Forms: General Discharge Information Follow-up/Referrals: Tera Uribe MD [Physician] - Call for Appointment Tobias Barboza MD [Primary Care Provider] - 2 Weeks Discharge Medications: New ticagrelor [Brilinta] 90 mg Tablet 90 mg PO Q12HR 30 Days Qty: 60 11RF atorvastatin 20 mg Tablet 20 mg PO DAILY Qty: 30 0RF aspirin [Children's Aspirin] 81 mg Tablet,Chewable 81 mg PO DAILY@0800 Qty: 30 0RF Continued omeprazole 20 mg capsule,delayed release(DR/EC) 20 mg PO DAILY Qty: 90 3RF mirtazapine 7.5 mg tablet 7.5 mg PO DAILY Qty: 90 1RF alprazolam 0.5 mg tablet 0.5 mg PO .QHS Qty: 90 1RF gabapentin 300 mg capsule 300 mg PO QHS PRN (Reason: pain) Discontinued atorvastatin 10 mg tablet 10 mg PO DAILY Qty: 90 3RF Date of admission: 06/18/25 16:07 Primary Care Provider: Tobias Barboza Admitting Provider: Billy Rebollar Attending physician on admission: Billy Rebollar Condition: Improved Quality VTE Prophylaxis VTE prophylaxis: pharmacologic ordered -Patient's previous records reviewed on admission -ER notes reviewed in detail on admission -discussed all findings and current treatment plan with patient/Family/POA -Consultations reviewed for recommendations -Patient's disposition for safe discharge discussed with rn case manager hospice Dictation performed by [employer] direct speech recognition software, therefore farm agent variants and typographical errors may occur. Hospitalist MIPS Heart Failure (Exclusion) Patient has history of Heart Transplant or Left Ventricular Assistive Device?: No IF YES, STOP HERE Heart Failure (Qualifier) Patient has current or prior documentation of LVEF less than or equal to 40%, or mod/servere depressed LVSF?: No IF NO, STOP HERE
== END 2025-06-21 10:16 | disposition home or self-care (01) ==
LOC: ANHED 15:30 → ANHIMU 16:56
PROVIDERS: Emergency Medicine; Internal Medicine Cardiovascular Disease; Nurse Practitioner; Nurse Practitioner Family; Student in an Organized Health Care Education/Training Program; Admitting Provider General Practice; Emergency Provider Emergency Medicine; PCP Family Medicine; Visit Provider General Practice
PROC: 4A023N7 Measurement of Cardiac Sampling and Pressure, Left Heart, Percutaneous Approach (ICD-10-PCS; CPT 93452; principal; 2025-06-20 11:45)
DX: I21.4 Non-ST elevation (NSTEMI) myocardial infarction (principal); I51.81 Takotsubo syndrome; I25.10 Atherosclerotic heart disease of native coronary artery without angina pectoris; D50.9 Iron deficiency anemia, unspecified; E78.2 Mixed hyperlipidemia; K21.9 Gastro-esophageal reflux disease without esophagitis; M79.7 Fibromyalgia; R06.81 Apnea, not elsewhere classified; F41.1 Generalized anxiety disorder; F32.9 Major depressive disorder, single episode, unspecified; N40.0 Benign prostatic hyperplasia without lower urinary tract symptoms; E03.9 Hypothyroidism, unspecified; F12.90 Cannabis use, unspecified, uncomplicated; Z79.899 Other long term (current) drug therapy
CPT/HCPCS: 36415; 71046; 71275; 80053; 80061; 83036; 83690; 83735; 84484; 85025; 85380; 85610; 85730; 86850; 86900; 86901; 92978; 93005; 93306; 93458; 96361; 96374; 96375; 99291; A9270; C1725; C1753; C1760; C1769; C1874; C1887; C1894; C9600; G0269; G0378; J0583; J1644; J2003; J2060; J2250; J2305; J3010; J7030; J7040; J7120; Q9967

== ENCOUNTER 2025-07-07 09:39 | Inpatient (IN) | payer OTHER, SELFPAY ==
[2025-07-07] VITALS (11 sets, daily range): BP systolic 123–145; BP diastolic 78–90; PULSE 52–68; RESP 15–19; TEMP 36.4–36.6; O2SAT 97–100; BMI 22.2
--- NOTE | ~2025-07-07 | XR_ITS ---
EXAMINATION: XR chest 2V 07/07/2025 10:43 INDICATION: Chest pain PROCEDURE: 2 view chest COMPARISON: Comparison to multiple prior studies sequentially, with oldest reviewed study dated 03/05/2019. FINDINGS: The lungs are clear. The cardiomediastinal silhouette is within normal limits. There are no pleural effusions. There is no pneumothorax suspected. Large hiatal hernia. IMPRESSION: 1: NO ACUTE CARDIOPULMONARY DISEASE. Reviewed, dictated and finalized at location O.
--- OUTSIDE RECORDS SUMMARY | 2025-07-07 09:40 | XMS_ITS | Clinical Summary ---
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 [address] PCP - General Family Practice 08/02/17
--- NOTE | 2025-07-07 09:41 | ECG_ITS ---
Test Date: 2025-07-07 09:49:03 Measurements Intervals [place] Rate: 62 P: 36 ME: 156 QRS: 84 QRSD: 89 T: 86 QT: 412 QTc: 421 Interpretive Statements SINUS RHYTHM BORDERLINE ST-T WAVE ABNORMALITY- HIGH LATERAL LEADS BORDERLINE ECG Compared to ECG 06/20/2025 13:02:36 T-wave abnormality no longer present Possible ischemia no longer present Electronically Signed On 07-07-2025 16:01:55 CDT by Vel Whitley D.O.
[2025-07-07] MEDS: ASPIRIN 81 MG CHEWABLE TABLET 324 MG PO (10:02)
[2025-07-07 10:06] LABS: Hematocrit 43.7 % (42.0-52.0); Hemoglobin 14.5 g/dL (14.0-18.0); Immature Granulocyte Percent A 0.4 % (0-0.5); Lymphocytes Absolute Auto 1.66 K/mm3 (0.9-3.2); Mean Corpuscular HGB Conc 33.2 g/dl (32-36); Mean Corpuscular Hemoglobin 30.5 pg (26-34); Mean Corpuscular Volume 92.0 fl (80-100); Nucleated Red Blood Cells Absolute Auto 0.000 K/mm3 (0.0-0.012); Nucleated Red Blood Cells Perc 0.0 % (0.0-0.2); Platelet Count Result 209 k/mm3 (150-375); Red Blood Count 4.75 M/mm3 (4.6-6.20); White Blood Count 5.5 K/mm3 (4.5-10.0)
[2025-07-07 10:22] LABS: Alanine Aminotransferase 33 U/L (6-50); Albumin Level 4.5 g/dL (3.5-5.1); Alkaline Phosphatase 75 U/L (38-126); Anion Gap 12 mmol/L (4-12); Aspartate Amino Transferase 37 U/L (17-59); Bilirubin,Total 0.7 mg/dL (0.2-1.3); Blood Urea Nitrogen 20 mg/dL (9-20); Calcium 9.5 mg/dL (8.4-10.2); Carbon Dioxide 19 mmol/L (22-30); Chloride 107 mmol/L (98-107); Estimated CRCL calculation 76 ml/min; Estimated Glomerular Filt Rate > 60; Glucose 132 mg/dL (65-110); Lipase 275 U/L (23-300); Potassium 4.3 mmol/L (3.4-5.0); Sodium 138 mmol/L (137-145); Total Protein 7.8 g/dL (6.3-8.2)
[2025-07-07 10:28] LABS: Troponin I < 0.012 ng/mL (0.000-0.034)
[2025-07-07 10:29] LABS: INR 0.9; Prothrombin Time 12.5 Seconds (11.1-14.7)
[2025-07-07 10:30] LABS: Partial Thromboplastin Time 26.3 Seconds (22.3-36.8)
--- OUTSIDE RECORDS SUMMARY | 2025-07-07 10:35 | XMS_ITS | Encounter Summary ---
Author Organization [facility] Address [facility] [place] [address] Care Team Providers Care Combination Welder Apprentice Name Role Phone Tobias Barboza MD Primary Care Provider [phone] Encounter Details Date Type Department Care Team (Late st Contact Info) Description 02/27/2025 Therapy Plan [facility] One Day Services [address] [place] [address] Noelle Nunes, ASAF [address] [place] [address] Social History Tobacco Use Types Packs/Day Years Used Date Smoking Tobacco: Never Assessed Sex and Gender Information Value Date Recorded Sex Assigned at Not on file Legal Sex Male 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
--- OUTSIDE RECORDS SUMMARY | 2025-07-07 10:35 | XMS_ITS | Encounter Summary ---
Author Organization [facility] Address [facility] [place] [address] Care Team Providers Care Environmental Journalist Name Role Phone Tobias Barboza MD Primary Care Provider [phone] Encounter Details Date Type Department Care Team (Late st Contact Info) Description 03/20/2024 [employer] Message 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
--- OUTSIDE RECORDS SUMMARY | 2025-07-07 10:35 | XMS_ITS | Encounter Summary ---
Author Organization [facility] Address [facility] [place] [address] Care Team Providers Care Academy Education Director Name Role Phone Tobias Barboza MD Primary Care Provider [phone] Encounter Details Date Type Department Care Team (Late st Contact Info) Description 12/17/[address] [facility] One Day Services [address] [place], [place] [id number] Tobias Barboza MD [address] [place] [address] Social History Tobacco Use Types Packs/Day Years Used Date Smoking Tobacco: Never Assessed Sex and Gender Information Value Date Recorded Sex Assigned at Not on file Legal Sex Male 1:12 PM GLOST KILN PLACER Gender Identity Not on file Sexual Orientation Not on file COVID-19 Exposure Response Date Recorded In the last 10 days, have yo u been in contact with someone who was confirmed or suspected to have Coronavirus/COVID-19? No / Unsure 12/18/2021 3:11 PM GLOST KILN PLACER documented as of this encounter Plan of Treatment Not on file documented as of this encounter Visit Diagnoses Diagnosis Iron deficiency- Primary Iron deficiency anemia, unspecified Iron deficiency anemia secondary to inadequate dietary iron intake documented in this encounter Care Teams Academy Education Director Relationship Specialty Start Date End Date Tobias Barboza MD [address] [place] [address] PCP - General FAMILY PRACTICE 12/07/19 documented as of this encounter
--- OUTSIDE RECORDS SUMMARY | 2025-07-07 10:35 | XMS_ITS | Encounter Summary ---
Author Organization [facility] Address Pending sale to [facility] [place] [address] Care Team Providers Care Learning Center Coordinator Name Role Phone Tobias Barboza MD Primary Care Provider [phone] Encounter Details Date Type Department Care Team (Late st Contact Info) Description 03/02/2022 Therapy Plan [facility] One Day Services [address] [place], [place] [id number] Tobias Barboza MD [address] [place] [address] Social History Tobacco Use Types Packs/Day Years Used Date Smoking Tobacco: Never Assessed Sex and Gender Information Value Date Recorded Sex Assigned at Not on file Legal Sex Male 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
--- OUTSIDE RECORDS SUMMARY | 2025-07-07 10:35 | XMS_ITS | Clinical Summary ---
Author Organization [facility] Address [address] [place] [address] Care Team Providers Care Marketing Sales Consultant Name Role Phone Tobias Barboza MD Primary Care Provider [phone] Allergies No known active allergies Medications tamsulosin [...] CDT Respiratory Rate 16 12/18/2018 1:11 PM PRINTED CIRCUIT BOARDS ROUTER Oxygen Saturation 95% 03/16/2019 8:57 AM CDT [...] to Health Maintenance Insurance [employer] Care Teams Marketing Sales Consultant Relationship Specialty Start Date End Date Tobias Barboza MD [address] [place] [address] PCP - General Family Practice 08/02/17
--- OUTSIDE RECORDS SUMMARY | 2025-07-07 10:35 | XMS_ITS | Encounter Summary ---
Author Organization [facility] Address [address] [place] [address] Care Team Providers Care Lay Out Worker Name Role Phone Tobias Barboza MD Primary Care Provider [phone] Encounter Details Date Type Department Care Team (Late st Contact Info) Description 04/07/2023 Therapy Plan [facility] One Day Services [address] [place] [address] Jerome Garcia, ELECTRIC TRAIN DRIVER [address] [place] [id number] Social History Tobacco Use Types Packs/Day Years Used Date Smoking Tobacco: Never Assessed Sex and Gender Information Value Date Recorded Sex Assigned at Not on file 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
--- OUTSIDE RECORDS SUMMARY | 2025-07-07 10:35 | XMS_ITS | Encounter Summary ---
Author Organization [facility] Address [facility] [place] [address] Care Team Providers Care Snack Stewardess Name Role Phone Tobias Barboza MD Primary Care Provider [phone] Encounter Details Date Type Department Care Team (Late st Contact Info) Description 10/19/2023 Therapy Plan [facility] One Day Services [address] [place], [place] [phone] Tobias Barboza MD [address] [place] [address] Social History Tobacco Use Types Packs/Day Years Used Date Smoking Tobacco: Never Assessed Sex and Gender Information Value Date Recorded Sex Assigned at Not on file Legal Sex Male 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
--- OUTSIDE RECORDS SUMMARY | 2025-07-07 10:35 | XMS_ITS | Encounter Summary ---
Author Organization [facility] Address [facility] [place] [address] Care Team Providers Care Sports Internship Name Role Phone Tobias Barboza MD Primary Care Provider [phone] Encounter Details Date Type Department Care Team (Late st Contact Info) Description 12/18/2021 Therapy Plan [facility] One Day Services [address] [place], [place] [phone] Tobias Barboza MD [address] [place] [address] Social History Tobacco Use Types Packs/Day Years Used Date Smoking Tobacco: Never Assessed Sex and Gender Information Value Date Recorded Sex Assigned at Not on file Legal Sex Male 1:12 PM RODBUSTER Gender Identity Not on file Sexual Orientation Not on file COVID-19 Exposure Response Date Recorded In the last 10 days, have yo u been in contact with someone who was confirmed or suspected to have Coronavirus/COVID-19? No / Unsure 12/18/2021 3:11 PM RODBUSTER documented as of this encounter Plan of Treatment Not on file documented as of this encounter Visit Diagnoses Not on filedocumented in this encounter Care Teams Sports Internship Relationship Specialty Start Date End Date Tobias Barboza MD [address] [place] [address] PCP - General FAMILY PRACTICE 12/07/19 documented as of this encounter
--- OUTSIDE RECORDS SUMMARY | 2025-07-07 10:35 | XMS_ITS | Encounter Summary ---
Author Organization [facility] Address [facility] [place] [address] Care Team Providers Care Ticket Counter Name Role Phone Tobias Barboza MD Primary Care Provider [phone] Encounter Details Date Type Department Care Team (Late st Contact Info) Description 12/24/2021 RX Orders Only [facility] [address] [place], [place] [id number] Seema Nguyễn, [facility] Social History Tobacco Use Types Packs/Day Years Used Date Smoking Tobacco: Never Assessed Sex and Gender Information Value Date Recorded Sex Assigned at Not on file Legal Sex Male 1:12 PM DUMPSTER OPERATOR Gender Identity Not on file Sexual Orientation Not on file COVID-19 Exposure Response Date Recorded In the last 10 days, have yo u been in contact with someone who was confirmed or suspected to have Coronavirus/COVID-19? No / Unsure 12/22/2021 9:13 AM DUMPSTER OPERATOR documented as of this encounter Plan of Treatment Not on file documented as of this encounter Visit Diagnoses Not on filedocumented in this encounter Care Teams Ticket Counter Relationship Specialty Start Date End Date Tobias Barboza MD [address] [address] PCP - General FAMILY PRACTICE 12/07/19 documented as of this encounter
--- OUTSIDE RECORDS SUMMARY | 2025-07-07 10:35 | XMS_ITS | Encounter Summary ---
Author Organization [facility] Address [facility] [place] [address] Care Team Providers Care Stator Winder Name Role Phone Tobias Barboza MD Primary Care Provider [phone] Encounter Details Date Type Department Care Team (Late st Contact Info) Description 02/19/2022 [email or web address] Message [facility] Patient Accounts [address] [place] [address] [facility] Provider Monthly Credit Card Payment Social History Tobacco Use Types Packs/Day Years Used Date Smoking Tobacco: Never Assessed Sex and Gender Information Value Date Recorded Sex Assigned at Not on file Legal 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
--- OUTSIDE RECORDS SUMMARY | 2025-07-07 10:36 | XMS_ITS | Encounter Summary ---
Author Organization [facility] Address [facility] [place] [address] Care Team Providers Care Skiver Uppers Or Linings Name Role Phone Tobias Barboza MD Primary Care Provider [phone] Encounter Details Date Type Department Care Team (Late st Contact Info) Description 11/11/2022 Therapy Plan [facility] Day Services [address] [place], [place] [id number] Tobias Barboza MD [address] [place] [address] Social History Tobacco Use Types Packs/Day Years Used Date Smoking Tobacco: Never Assessed Sex and Gender Information Value Date Recorded Sex Assigned at Not on file Legal Sex Male 1:12 PM PATHOLOGY 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
--- OUTSIDE RECORDS SUMMARY | 2025-07-07 10:36 | XMS_ITS | Encounter Summary ---
Author Organization [facility] Address [facility] [place] [address] Care Team Providers Care City Dispatcher Name Role Phone Tobias Barboza MD Primary Care Provider [phone] Encounter Details Date Type Department Care Team (Late st Contact Info) Description 05/07/2020 Therapy Plan 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
--- OUTSIDE RECORDS SUMMARY | 2025-07-07 10:36 | XMS_ITS | Encounter Summary ---
Author Organization [facility] Address [facility] [place] [address] Care Team Providers Care Saddle And Side Wire Stitcher Name Role Phone Tobias Barboza MD Primary Care Provider [phone] Encounter Details Date Type Department Care Team (Late st Contact Info) Description 12/07/2019 Therapy Plan [facility] Day Services [address] [place], [place] [id number] Tobias Barboza MD [address] [address] Social History Tobacco Use Types Packs/Day Years Used Date Smoking Tobacco: Never Assessed Sex and Gender Information Value Date Recorded Sex Assigned at Not on file Legal Sex Male 1:12 PM 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
--- OUTSIDE RECORDS SUMMARY | 2025-07-07 10:36 | XMS_ITS | Encounter Summary ---
Author Organization [facility] Address [facility] [place] [address] Care Team Providers Care Creative Guru Name Role Phone Tobias Barboza MD Primary Care Provider [phone] Encounter Details Date Type Department Care Team (Late st Contact Info) Description 09/09/2021 Therapy Plan [facility] One Day Services [address] [place], [place] [id number] Tobias Barboza MD [address] [facility] [place] [address] Social History Tobacco Use Types Packs/Day Years Used Date Smoking Tobacco: Never Assessed Sex and Gender Information Value Date Recorded Sex Assigned at Not on file Legal Sex Male 1:12 PM HANDYMAN Gender Identity Not on file Sexual Orientation Not on file documented as of this encounter Plan of Treatment Not on file documented as of this encounter Visit Diagnoses Diagnosis Iron deficiency- Primary Iron deficiency anemia, unspecified Iron deficiency anemia secondary to inadequate dietary iron intake documented in this encounter Care Teams Creative Guru Relationship Specialty Start Date End Date Tobias Barboza MD [address] [place] [address] PCP - General FAMILY PRACTICE 12/07/19 documented as of this encounter
--- OUTSIDE RECORDS SUMMARY | 2025-07-07 10:36 | XMS_ITS | Encounter Summary ---
Author Organization [facility] Address [address] [place] [address] Care Team Providers Care Char Puller Name Role Phone Tobias Barboza MD Primary Care Provider [phone] Reason for Referral * Injection (Urgent) - Closed Specialty Diagnoses / Procedures Referred By Contac t Referred To Contact INFUSION THERAPY / Short Stay Services Diagnoses Iron deficiency anemia Procedures INJECTION, FERRIC CARBOXYMALTOSE, 1 MG [facility] One Day Services [address] [place] [address] Phone: tel: [facility] Day Services [address] [place] [address] Phone: tel: Referral ID Status Reason Start Date Expiration Date V isits Requested Visits Authorized [id number] Closed Specialty Services 01/02/2021 01/30/2022 2 2 Scheduling Instructions For injectafer infusions x2 doses - stat Office requesting to schedule CAS Per Shima / Dr. Islas office, states she called insurance co - see order scanned. TECH Encounter Details Date Type Department Care Team (Late st Contact Info) Description 01/02/2021 Therapy Plan [facility] Day Services [id number] [place] [address] Tobias Barboza MD [address] [place] [address] Social History Tobacco Use Types Packs/Day Years Used Date Smoking Tobacco: Never Assessed Sex and Gender Information Value Date Recorded Sex Assigned at Not on file Legal Sex Male 1:12 PM MRI TECH Gender Identity Not on file Sexual Orientation Not on file COVID-19 Exposure Response Date Recorded In the last month, have you been in contact with someone who was confirmed or suspected to have Coronavirus / COVID-19? No / Unsure 01/02/2021 2:07 PM MRI TECH documented as of this encounter Plan of Treatment Scheduled Referrals Name Type Priority Associated Diagnoses Orde r Schedule Ambulatory referral to Infusion Therapy Referral Routine Iron deficiency anemia Ordered: 01/02/2021 documented as of this encounter Visit Diagnoses Diagnosis Iron deficiency anemia- Primary Iron deficiency anemia, unspecified documented in this encounter Care Teams Char Puller Relationship Specialty Start Date End Date Tobias Barboza MD [address] [place], [place] [id number] PCP - General FAMILY PRACTICE 12/07/19 documented as of this encounter
--- OUTSIDE RECORDS SUMMARY | 2025-07-07 10:36 | XMS_ITS | Encounter Summary ---
Author Organization [facility] Address [address] [place] [address] Care Team Providers Care Filter Operator Name Role Phone Tobias Barboza MD Primary Care Provider [phone] Reason for Referral * Injection (Routine) - Closed Specialty Diagnoses / Procedures Referred By Contac t Referred To Contact INFUSION THERAPY / [facility] Infusion Therapy Diagnoses Iron deficiency Other iron deficiency anemias Procedures INJECTION, FERRIC CARBOXYMALTOSE, 1 MG For Injectafer weekly x 3 doses [facility] One Day Services [address] [place] [address] Phone: tel: [facility] Infusion Services [address] [place] [address] Phone: tel: Referral ID Status Reason Start Date Expiration Date V isits Requested Visits Authorized [id number] Closed Specialty Services 05/25/2021 06/25/2022 4 4 Scheduling Instructions For Injectafer Encounter Details Date Type Department Care Team (Late st Contact Info) Description 05/25/2021 Therapy Plan [facility] Day Services [address] [place] [address] Tobias Barboza MD [address] [address] Social History Tobacco Use Types Packs/Day Years Used Date Smoking Tobacco: Never Assessed Sex and Gender Information Value Date Recorded Sex Assigned at Not on file Legal Sex Male 1:12 PM SLIP LASTER Gender Identity Not on file Sexual Orientation [...] unspecified documented in this encounter Care Teams Filter Operator Relationship Specialty Start Date End Date Tobias Barboza MD [address] [address] PCP - General FAMILY PRACTICE 12/07/19 documented as of this encounter
--- OUTSIDE RECORDS SUMMARY | 2025-07-07 10:36 | XMS_ITS | Clinical Summary ---
Author Organization [facility] Address [address] [place] [address] Care Team Providers Care Electron Microscopist Name Role Phone Tobias Barboza MD Primary Care Provider [phone] Allergies No known active allergies Medications ferrous sulfate EC 325 (65 Fe) MG tablet Take 1 tablet by mouth daily with breakfast. Active Active Problems Problem Noted Date Diagnosed Date Iron deficiency 05/25/2021 Iron deficiency anemia carri agudelo to inadequate dietary iron intake 05/25/2021 Iron deficiency anemia 12/07/2019 Social History Tobacco Use Types Packs/Day Years Used Date Smoking Tobacco: Never Assessed Sex and Gender Information Value Date Recorded Sex Assigned at Not on file Legal Sex Male 1:12 PM CLIENT RESOLUTION SPECIALIST Gender Identity Not on file Sexual Orientation [...] 5 season) 2024 02/26/2021, 02/05/2021 PHQ-2 (Physician [place]) 11/07/2024 RSV Immunization or 60+ Years (1 [...] patient's age to complete this topic Insurance [employer] [facility] Care Teams Electron Microscopist Relationship Specialty Start Date End Date Tobias Barboza MD [address] [place] [address] PCP - General FAMILY PRACTICE 12/07/19
--- NOTE | 2025-07-07 10:41 | ED_ITS ---
HPI - Chest Pain General Chief Complaint: Chest Pain Stated Complaint: CP Time Seen by Provider: 07/07/25 10:04 History of Present Illness HPI narrative: Patient is a 59-year-old male who presents ER with central chest pain. Pressure pain 8/10 beginning at 8:00 a.m.. Received 3 baby aspirins here after taking a single baby aspirin at home and pain is decreased to 4/10. Recently had an ME and stent placed on 06/25/25. He has been compliant with his Brilinta and other medications. His atorvastatin was increased. He did have some sweating this morning with this. No nausea or abdominal pain. He is not having any exertional shortness of breath. Cannot identify any aggravating factors. Patient reports he did play in a golf scramble yesterday but had no issues. Related Data Home Medications ?Medication ?Instructions ?Recorded ?Confirmed ?Last Taken ?Type gabapentin 300 mg capsule 300 mg PO QHS PRN pain 06/1807/07/25 07/07/25 History Allergies Allergy/AdvReac Type Severity Reaction Status Date / Time Penicillins AdvReac Mild Hives Verified 07/07/25 13:02 Review of Systems 2 Review of Systems: All systems reviewed & are unremarkable except as noted in HPI and below Constitutional: Constitutional: Reports no additional constitutional complaints ENT: Reports system reviewed and no additional complaints, except as documented Cardiovascular: Cardiovascular: Reports no additional cardiovascular complaints Respiratory: Respiratory: Reports no additional respiratory complaints Gastrointestinal: Gastrointestinal: Reports no additional gastrointestinal complaints Musculoskeletal: Musculoskeletal: Reports no additional musculoskeletal complaints PMFSH Past Medical History Medical History (Updated 07/07/25 @ 15:55 by Hung Soto MD) CAD (coronary artery disease) GERD (gastroesophageal reflux disease) Poison zechariah Fatigue BMI 22.0-22.9, adult Need for vaccination Apnea De Quervain's disease (tenosynovitis) Hyperhidrosis Weight loss, unintentional BPH (benign prostatic hyperplasia) Knee abrasion BMI 27.0-27.9,adult Hypothyroidism BMI 26.0-26.9,adult Skin lesion of face Erectile dysfunction Psychophysiological insomnia Testosterone deficiency Surgical History Surgical History History of ankle surgery Family History Family History (Updated 07/07/25 @ 12:50 by Nneka Weston RN) Grandparent Diabetes mellitus Father Acute myocardial infarction Mother Leukemia Cancer of vulva Cancer of kidney Penicillin allergy Other Family history of arthritis Family history of malignant neoplasm Social History Social History Smoking status: Never smoker Second hand tobacco smoke exposure: Yes Alcohol intake: current Drinks per week: 6 Substance use: never Substance use type: marijuana Other substance usage details: gummies at bedtime 10mg Last use: gummies at night to sleep. 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 HEAD: Normocephalic, atraumatic. ENT: Mucous membranes moist. CHEST: Clear to auscultation. No respiratory distress. HEART: Regular rate and rhythm. Normal peripheral pulses. ABDOMEN: Soft, nontender, nondistended. EXTREMITIES: Normal range of motion. No edema. SKIN: Warm, dry, no rash. Bruising right proximal thigh from previous cardiac catheterization. NEURO: Alert and oriented x3. PSYCH: Normal mood and affect. Course Course Emergency Course: 1124: Discussed with Dr. Field, recommneds admit for obs and serial troponins. Pt currently 0/10 pain. Informed of tx plan. 1134: Accepted by hospitalist. Vital Signs Vital signs: Vital Signs Temperature 97.6 F 07/07/25 09:45 Pulse Rate 63 07/07/25 09:45 Respiratory Rate 19 07/07/25 09:45 Blood Pressure 145/90 H 07/07/25 09:45 Pulse Oximetry 100 07/07/25 09:45 Oxygen Delivery Room Air 07/07/25 09:45 Temperature 97.5 F L 07/07/25 12:07 Pulse Rate 68 07/07/25 14:00 Respiratory Rate 16 07/07/25 12:07 Blood Pressure 142/90 H 07/07/25 12:07 Pulse Oximetry 100 07/07/25 12:07 Oxygen Delivery Room Air 07/07/25 09:51 MDM - Chest Pain Lab Data 07/07/25 09:56 07/07/25 09:56 Labs: Lab Results 07/07/25 Range/Units 09:56 WBC 5.5 (4.5-10.0) K/mm3 RBC 4.75 (4.6-6.20) M/mm3 Hgb 14.5 (14.0-18.0) g/dL Hct 43.7 (42.0-52.0) % MCV 92.0 (80-100) fl MCH 30.5 (26-34) pg MCHC 33.2 (32-36) g/dl RDW 14.4 (11.5-14.5) % Plt Count 209 (150-375) k/mm3 MPV 10.3 (7.4-10.4) fl Immature Gran % (Auto) 0.4 (0-0.5) % Neut % (Auto) 56.3 (45.5-73.1) % Lymph % (Auto) 30.0 (18.3-44.2) % [place] % (Auto) 11.0 H (2.6-8.5) % Eos % (Auto) 1.8 (0-4.4) % Baso % (Auto) 0.5 (0.2-1.2) % Lymph # (Auto) 1.66 (0.9-3.2) K/mm3 [place] # (Auto) 0.6 (0.1-0.6) K/mm3 Eos # (Auto) 0.1 (0-0.3) K/mm3 Baso # (Auto) 0.0 (0.0-0.1) K/mm3 Abs Immat Gran (auto) 0.02 (0.00-0.031) K/mm3 Absolute Neuts (auto) 3.1 (1.3-6.7) K/mm3 Absolute Nucleated RBC 0.000 (0.0-0.012) K/mm3 Nucleated RBC % 0.0 (0.0-0.2) % PT 12.5 (11.1-14.7) Seconds INR 0.9 APTT 26.3 (22.3-36.8) Seconds Sodium 138 (137-145) mmol/L Potassium 4.3 (3.4-5.0) mmol/L Chloride 107 (98-107) mmol/L Carbon Dioxide 19 L (22-30) mmol/L Anion Gap 12 (4-12) mmol/L BUN 20 (9-20) mg/dL Creatinine 1.02 (0.7-1.3) mg/dL Estim Creat Clear Calc 76 ml/min Estimated GFR > 60 (59 - ) Glucose 132 H (65-110) mg/dL Calcium 9.5 (8.4-10.2) mg/dL Total Bilirubin 0.7 (0.2-1.3) mg/dL AST 37 (17-59) U/L ALT 33 (6-50) U/L Alkaline Phosphatase 75 (38-126) U/L Troponin I < 0.012 (0.000-0.034) ng/mL Total Protein 7.8 (6.3-8.2) g/dL Albumin 4.5 (3.5-5.1) g/dL Lipase 275 (23-300) U/L Imaging Data Radiologist's impression: ITS Impressions Chest X-Ray 07/07/25 11:22 IMPRESSION: 1: NO ACUTE CARDIOPULMONARY DISEASE. ECG Data EKG #1: ECG completion date: 07/07/25 ECG completion time: 09:49 EKG Interpretation: normal rate (62), sinus rhythm, no ectopy and normal QRS Discharge Plan Discharge Clinical Impression: Chest pain Patient Disposition: Still a Patient Condition: Stable Quality HEART score for chest pain patients History: moderately suspicious ECG: normal Age: > 45 and < 65 years Risk factors: > or = to 3 risk factors of atherosclerotic disease Troponin: < or = to 1x normal limit Heart score: 4
--- NOTE | 2025-07-07 12:10 | PC.NURSE ---
Meal tray ordered for pt to be sent to his room upstairs
--- NOTE | 2025-07-07 12:59 | ADMGEN ---
This patient, Sebastien Gee, was admitted to IMU Room 205-01. Patient/family oriented to hospital policies and general routines including ID bracelet, bed and alarms, visiting hours, pain management, procedures, bathroom and other care routines, personal items, smoking policy, room service/diet, and visiting hours. in room, no complaints at this time of chest pain, lab in for draw Information on how to activate the Rapid Response Team has been discussed. Patient/Family are encouraged to report perceived risks to care and to ask questions if they do not understand what they are told or what they should do.
[2025-07-07 13:57] LABS: Troponin I 3.060 ng/mL (0.000-0.034)
[2025-07-07 16:06] LABS: Troponin I 9.260 ng/mL (0.000-0.034)
--- NOTE | 2025-07-07 16:10 | ECG_ITS ---
Test Date: 2025-07-07 16:24:31 Measurements Intervals [place] Rate: 57 P: 14 CT: 153 QRS: 83 QRSD: 86 T: 71 QT: 433 QTc: 423 Interpretive Statements SINUS BRADYCARDIA BORDERLINE ECG Compared to ECG 07/07/2025 09:49:03 NO SIGNIFICANT CHANGE Electronically Signed On 07-07-2025 21:10:15 CDT by Vel Whitley D.O.
--- NOTE | 2025-07-07 16:22 | ECG_ITS ---
Test Date: 2025-07-08 08:31:52 Measurements Intervals [place] Rate: 75 P: 48 [place]: 150 QRS: 80 QRSD: 88 T: 68 QT: 401 QTc: 448 Interpretive Statements SINUS RHYTHM Compared to ECG 07/07/2025 19:27:04 Sinus bradycardia no longer present Electronically Signed On 07-08-2025 11:44:14 CDT by Drew Field M.D.
--- NOTE | 2025-07-07 17:16 | PM.IMHP ---
H&P: HPI History of Present Illness Date/Time: 07/07/25 17:16 Chief Complaint: Substernal chest pain Narrative: Sebastien Gee is a 59 year old male with CAD s/p PCI x1 06/20/2025, hyperlipidemia, history of iron in deficiency, hypothyroid who is here for chest pain that started around 8:00 a.m.. Chest pain is substernal, constant and nonradiating. Denies any associated symptoms including diaphoresis, nausea, vomiting, palpitation, headache, lightheadedness and abdominal. He denies any blurry vision. He did eat breakfast today. He was not exerting himself when the pain started. He was a former smoker. He had takotsubo syndrome likely secondary to his mother . He has been doing well post stent. He denies smoking currently. He played golf yesterday. Chest x-ray shows negative for consolidation/infiltrate/vascular congestion/mediastinal widening. Patient received 4 baby aspirin and the chest pain is subsided. CBC CBC and CMP is unremarkable. Initially troponin was negative but the subsequent troponin increases significantly. Cardiology was called and discussed the finding. EKG was performed and no ST segment elevation. Will trend troponin. If there is any ST-T segment change please call child care. [facility] Past Medical History Medical History (Updated 07/07/25 @ 15:55 by Hung Soto MD) CAD (coronary artery disease) GERD (gastroesophageal reflux disease) Poison zechariah Fatigue BMI 22.0-22.9, adult Need for vaccination Apnea De Quervain's disease (tenosynovitis) Hyperhidrosis Weight loss, unintentional BPH (benign prostatic hyperplasia) Knee abrasion BMI 27.0-27.9,adult Hypothyroidism BMI 26.0-26.9,adult Skin lesion of face Erectile dysfunction Psychophysiological insomnia Testosterone deficiency Surgical History Surgical History History of ankle surgery Family History Family History (Updated 07/07/25 @ 12:50 by Nneka Weston RN) Grandparent Diabetes mellitus Father Acute myocardial infarction Mother Leukemia Cancer of vulva Cancer of kidney Penicillin allergy Other Family history of arthritis Family history of malignant neoplasm Social History Social History Smoking status: Never smoker Second hand tobacco smoke exposure: Yes Alcohol intake: current Drinks per week: 6 Substance use: never Substance use type: marijuana Other substance usage details: gummies at bedtime 10mg Last use: gummies at night to sleep. 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 Gender identity (if verbalized by the patient): Male Spiritual care concerns: No Meds Home Medications and Allergies Home Medications ?Medication ?Instructions ?Recorded ?Confirmed ?Type alprazolam 0.5 mg tablet 0.5 mg PO .QHS #90 tabs 01/24/25 07/07/25 Rx mirtazapine 7.5 mg tablet 7.5 mg PO DAILY #90 tabs 01/24/25 07/07/25 Rx omeprazole 20 mg capsule,delayed 20 mg PO DAILY #90 caps 01/24/25 07/07/25 Rx release gabapentin 300 mg capsule 300 mg PO QHS PRN pain 06/18/25 07/07/25 History ticagrelor 90 mg tablet (Brilinta) 90 mg PO Q12HR 30 days #60 tabs 06/20/25 07/07/25 Rx aspirin 81 mg chewable tablet 81 mg PO DAILY@0800 #30 tabs 06/21/25 07/07/25 Rx (Children's Aspirin) atorvastatin 20 mg tablet 20 mg PO DAILY #30 tabs 06/21/25 07/07/25 Rx Allergies Allergy/AdvReac Type Severity Reaction Status Date / Time Penicillins AdvReac Mild Hives Verified 07/07/25 13:02 Vital Signs Vital Signs - 24 hr 07/07/25 09:45 07/07/25 09:51 07/07/25 09:57 Temperature 36.4 C Pulse Rate 63 61 Respiratory Rate 19 Blood Pressure 145/90 H Pulse Oximetry 100 100 Oxygen Delivery Room Air Room Air 07/07/25 11:19 07/07/25 11:54 07/07/25 12:07 Temperature 36.4 C L Pulse Rate 59 L 61 61 Respiratory Rate 16 16 16 Blood Pressure 123/78 131/86 142/90 H Pulse Oximetry 99 100 100 Oxygen Delivery 07/07/25 14:00 Temperature Pulse Rate 68 Respiratory Rate Blood Pressure Pulse Oximetry Oxygen Delivery Exam Narrative: APPEARANCE: Laying in the bed comfortably, chest pain-free EYES: EOMI HEENT: Normocephalic, atraumatic, OMM RESPIRATORY: No chest tenderness, No respiratory distress Clear to auscultation bilaterally with no rhonchi wheezing or rales. CARDIOVASCULAR: RRR, S1 and S2 without murmurs rubs or gallops. ABDOMINAL: Soft, nontender, nondistended, no rebound or guarding MUSCULOSKELETAl: 5/5 motor strength throughout his extra. No bony tenderness throughout either leg and no deformities. NEURO: Awake and alert. Following commands, speech normal, no focal deficits SKIN:: Warm, dry. No rashes lesions or abrasions PSYCHIATRIC: Normal affect/mood, H&P: Results Labs Labs: Short CBC 07/07/25 Range/Units 09:56 WBC 5.5 (4.5-10.0) K/mm3 Hgb 14.5 (14.0-18.0) g/dL Hct 43.7 (42.0-52.0) % Plt Count 209 (150-375) k/mm3 BMP 07/07/25 09:56 Sodium 138 Potassium 4.3 Chloride 107 Carbon Dioxide 19 L BUN 20 Creatinine 1.02 Glucose 132 H Calcium 9.5 Cardiac Enzymes 07/07/25 07/07/25 07/07/25 Range/Units 09:56 12:49 15:34 Troponin I < 0.012 3.060 H* D 9.260 H* D (0.000-0.034) ng/mL Liver Function 07/07/25 Range/Units 09:56 Total Bilirubin 0.7 (0.2-1.3) mg/dL AST 37 (17-59) U/L ALT 33 (6-50) U/L Alkaline Phosphatase 75 (38-126) U/L Albumin 4.5 (3.5-5.1) g/dL Assessment and Plan Assessment and plan (1) Chest pain: Code(s): R07.9 - Chest pain, unspecified Status: Acute (2) CAD (coronary artery disease): Code(s): I25.10 - Atherosclerotic heart disease of [place] coronary artery without angina pectoris Status: Acute (3) Takotsubo syndrome: Code(s): I51.81 - Takotsubo syndrome Status: Acute (4) Iron deficiency anemia: Qualifiers: Iron deficiency anemia type: other iron deficiency Qualified Code(s): D50.8 - Other iron deficiency anemias Code(s): D50.9 - Iron deficiency anemia, unspecified Status: Chronic (5) BPH (benign prostatic hyperplasia): Qualifiers: Lower urinary tract symptom presence: symptoms absent Qualified Code(s): N40.0 - Benign prostatic hyperplasia without lower urinary tract symptoms Code(s): N40.0 - Benign prostatic hyperplasia without lower urinary tract symptoms Status: Acute (6) Hypothyroidism: Qualifiers: Hypothyroidism type: acquired Qualified Code(s): E03.9 - Hypothyroidism, unspecified Code(s): E03.9 - Hypothyroidism, unspecified Status: Acute (7) Anxiety disorder, unspecified: Qualifiers: Anxiety disorder type: generalized anxiety disorder Qualified Code(s): F41.1 - Generalized anxiety disorder Code(s): F41.9 - Anxiety disorder, unspecified Status: Acute Plan 1. Chest pain History of takotsubo syndrome secondary to his mother's Echo shows diastolic dysfunction grade 1, EF of 50-60% with apical septum and mid anteroseptall hypokinetic dysfunction [facility] 06/20/2025, found 90% lesion junction the proximal and midportion of the LAD status post stent Has been taking aspirin and Brilinta He takes atorvastatin 40 mg HS Continue aspirin, Brilinta, and atorvastatin Troponin trending; 0.012-3.060-9.260 continue trending EKG was unremarkable; no ST segment change Patient is chest pain-free Troponin change was discussed with the Cardiology Cardiology recommends trending troponin and performing EKG when patient has chest pain Heart rate is low, will add beta-javed if he tolerates Cardiology consulted, appreciate recs 2. History of CAD/takotsubo syndrome status post PCI 06/20/2025 by Continue aspirin/Brilinta/atorvastatin 3. Hyperlipidemia Continue atorvastatin 4. GERD Continue omeprazole 5. History of iron deficiency anemia Hemoglobin 14.5 and MCV 92.0 Daily CBC 6. Disposition He lives home with his Home once clinically stable
[2025-07-07] MEDS: PANTOPRAZOLE 40 MG TABLET PO (17:42)
[2025-07-07] MEDS: HEPARIN SOD/D5W 100 UNITS/ML 25,000 UNITS/250 ML BAG 9 UNITS IV CONT (18:42)
[2025-07-07 18:48] LABS: Hematocrit 42.3 % (42.0-52.0); Hemoglobin 13.9 g/dL (14.0-18.0); Immature Granulocyte Percent A 0.2 % (0-0.5); Lymphocytes Absolute Auto 1.04 K/mm3 (0.9-3.2); Mean Corpuscular HGB Conc 32.9 g/dl (32-36); Mean Corpuscular Hemoglobin 30.3 pg (26-34); Mean Corpuscular Volume 92.4 fl (80-100); Nucleated Red Blood Cells Absolute Auto 0.000 K/mm3 (0.0-0.012); Nucleated Red Blood Cells Perc 0.0 % (0.0-0.2); Platelet Count Result 192 k/mm3 (150-375); Red Blood Count 4.58 M/mm3 (4.6-6.20); White Blood Count 5.8 K/mm3 (4.5-10.0)
[2025-07-07 19:06] LABS: INR 1.0; Prothrombin Time 13.2 Seconds (11.1-14.7)
[2025-07-07 19:07] LABS: Partial Thromboplastin Time 27.4 Seconds (22.3-36.8)
[2025-07-07 19:13] LABS: Troponin I 13.200 ng/mL (0.000-0.034)
--- NOTE | 2025-07-07 19:18 | ECG_ITS ---
Test Date: 2025-07-07 19:27:04 Measurements Intervals [place] Rate: 57 P: 209 [place]: 226 QRS: 77 QRSD: 83 T: 47 QT: 427 QTc: 416 Interpretive Statements SINUS BRADYCARDIA BASELINE ARTIFACT- I, III, AVR, AVL, AVF, V1-V6 BORDERLINE ECG Compared to ECG 07/07/2025 16:24:31 NO SIGNIFICANT CHANGE Electronically Signed On 07-07-2025 21:11:23 CDT by Vel Whitley D.O.
--- NOTE | 2025-07-07 19:43 | PC.NURSE ---
Dr. Field updated on EKG and Troponin results.
[2025-07-07] MEDS: MIRTAZAPINE 7.5 MG TABLET PO (20:04)
[2025-07-07] MEDS: TICAGRELOR 90 MG TABLET PO (20:04)
[2025-07-07] MEDS: ALPRAZolam (*CRX) 0.5 MG TABLET PO (20:04)
[2025-07-08] VITALS (15 sets, daily range): BP systolic 116–137; BP diastolic 66–84; PULSE 47–71; RESP 14–20; TEMP 36.6–37; O2SAT 96–100
[2025-07-08 00:30] LABS: Hematocrit 40.7 % (42.0-52.0); Hemoglobin 13.4 g/dL (14.0-18.0); Immature Granulocyte Percent A 0.2 % (0-0.5); Lymphocytes Absolute Auto 1.36 K/mm3 (0.9-3.2); Mean Corpuscular HGB Conc 32.9 g/dl (32-36); Mean Corpuscular Hemoglobin 30.7 pg (26-34); Mean Corpuscular Volume 93.3 fl (80-100); Nucleated Red Blood Cells Absolute Auto 0.000 K/mm3 (0.0-0.012); Nucleated Red Blood Cells Perc 0.0 % (0.0-0.2); Platelet Count Result 171 k/mm3 (150-375); Red Blood Count 4.36 M/mm3 (4.6-6.20); White Blood Count 5.6 K/mm3 (4.5-10.0)
[2025-07-08 00:44] LABS: Partial Thromboplastin Time 89.3 Seconds (22.3-36.8)
[2025-07-08 06:53] LABS: Partial Thromboplastin Time 98.3 Seconds (22.3-36.8)
[2025-07-08 07:07] LABS: Anion Gap 6 mmol/L (4-12); Blood Urea Nitrogen 17 mg/dL (9-20); Calcium 8.9 mg/dL (8.4-10.2); Carbon Dioxide 25 mmol/L (22-30); Chloride 107 mmol/L (98-107); Estimated CRCL calculation 76 ml/min; Estimated Glomerular Filt Rate > 60; Glucose 99 mg/dL (65-110); Potassium 3.9 mmol/L (3.4-5.0); Sodium 138 mmol/L (137-145)
[2025-07-08 07:56] LABS: Troponin I 6.640 ng/mL (0.000-0.034)
[2025-07-08] MEDS: ASPIRIN 81 MG CHEWABLE TABLET PO (09:31)
[2025-07-08] MEDS: TICAGRELOR 90 MG TABLET PO ×2 (09:31→20:25)
[2025-07-08] MEDS: ATORVASTATIN 20 MG TABLET PO (09:32)
[2025-07-08] MEDS: PANTOPRAZOLE 40 MG TABLET PO (09:32)
--- NOTE | 2025-07-08 10:11 | PM.CNCAR ---
Assessment and Plan Assessment and plan (1) Non-ST elevation IN (NSTEMI): Code(s): I21.4 - Non-ST elevation (NSTEMI) myocardial infarction Status: Acute Plan NSETMI Plan Aspirin Brilinta Heparin Statin NPO after midnight Cardiac catheterization Metoprolol 25 mg b.i.d. Transthoracic echocardiogram History of Present Illness History of Present Illness Consult date/time: 07/08/25 10:11 Reason For Visit: Chest Pain Narrative: 59-year-old male patient with acute of chest pain. Chest pain with severe lasted for 2 hours nonradiating. It was similar to prior episode of chest pain happened a few weeks ago when he had acute chest pain admitted to the hospital with acute coronary syndrome had PCI to the LAD. Review of Systems Review of Systems: All systems reviewed & are unremarkable except as noted in HPI and below PMFSH Past Medical History Medical History (Updated 07/07/25 @ 15:55 by Hung Soto MD) CAD (coronary artery disease) GERD (gastroesophageal reflux disease) Poison zechariah Fatigue BMI 22.0-22.9, adult Need for vaccination Apnea De Quervain's disease (tenosynovitis) Hyperhidrosis Weight loss, unintentional BPH (benign prostatic hyperplasia) Knee abrasion BMI 27.0-27.9,adult Hypothyroidism BMI 26.0-26.9,adult Skin lesion of face Erectile dysfunction Psychophysiological insomnia Testosterone deficiency Surgical History Surgical History History of ankle surgery Family History Family History (Updated 07/07/25 @ 12:50 by Nneka Weston RN) Grandparent Diabetes mellitus Father Acute myocardial infarction Mother Leukemia Cancer of vulva Cancer of kidney Penicillin allergy Other Family history of arthritis Family history of malignant neoplasm Social History Social History Smoking status: Never smoker Second hand tobacco smoke exposure: Yes Alcohol intake: current Drinks per week: 6 Substance use: never Substance use type: marijuana Other substance usage details: gummies at bedtime 10mg Last use: gummies at night to sleep. 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 Gender identity (if verbalized by the patient): Male Spiritual care concerns: No Meds Home Medications and Allergies Home Medications ?Medication ?Instructions ?Recorded ?Confirmed ?Type alprazolam 0.5 mg tablet 0.5 mg PO .QHS #90 tabs 01/24/25 07/07/25 Rx mirtazapine 7.5 mg tablet 7.5 mg PO DAILY #90 tabs 01/24/25 07/07/25 Rx omeprazole 20 mg capsule,delayed 20 mg PO DAILY #90 caps 01/24/25 07/07/25 Rx release gabapentin 300 mg capsule 300 mg PO QHS PRN pain 06/18/25 07/07/25 History ticagrelor 90 mg tablet (Brilinta) 90 mg PO Q12HR 30 days #60 tabs 06/20/25 07/07/25 Rx aspirin 81 mg chewable tablet 81 mg PO DAILY@0800 #30 tabs 06/21/25 07/07/25 Rx (Children's Aspirin) atorvastatin 20 mg tablet 20 mg PO DAILY #30 tabs 06/21/25 07/07/25 Rx Allergies Allergy/AdvReac Type Severity Reaction Status Date / Time Penicillins AdvReac Mild Hives Verified 07/07/25 13:02 Vital Signs Vital Signs - 24 hr 07/07/25 11:19 07/07/25 11:54 07/07/25 12:07 Temperature 36.4 C L Pulse Rate 59 L 61 61 Respiratory Rate 16 16 16 Blood Pressure 123/78 131/86 142/90 H Pulse Oximetry 99 100 100 Oxygen Delivery 07/07/25 14:00 07/07/25 16:00 07/07/25 16:00 Temperature Pulse Rate 68 60 Respiratory Rate Blood Pressure Pulse Oximetry Oxygen Delivery Room Air 07/07/25 18:00 07/07/25 20:00 07/07/25 20:00 Temperature 36.6 C Pulse Rate 64 59 L 59 L Respiratory Rate 15 Blood Pressure 140/81 Pulse Oximetry 97 Oxygen Delivery Room Air 07/07/25 20:00 07/07/25 22:00 07/08/25 00:00 Temperature 36.6 C Pulse Rate 60 52 L 58 L Respiratory Rate 14 Blood Pressure 125/66 Pulse Oximetry 100 Oxygen Delivery 07/08/25 00:00 07/08/25 00:00 07/08/25 02:00 Temperature Pulse Rate 53 L 47 L 49 L Respiratory Rate Blood Pressure Pulse Oximetry Oxygen Delivery Room Air 07/08/25 04:00 07/08/25 04:00 07/08/25 04:00 Temperature 36.7 C Pulse Rate 61 49 L 53 L Respiratory Rate 14 Blood Pressure 116/70 Pulse Oximetry 99 Oxygen Delivery Room Air 07/08/25 06:00 07/08/25 08:00 07/08/25 08:30 Temperature 36.8 C Pulse Rate 56 L 69 70 Respiratory Rate 14 Blood Pressure 129/80 Pulse Oximetry 96 Oxygen Delivery 07/08/25 10:00 Temperature Pulse Rate 71 Respiratory Rate Blood Pressure Pulse Oximetry Oxygen Delivery Exam Const: General: comfortable and no acute distress Other: Able to lie flat HENMT: Face/Nose/Sinus: Normal nares present and no epistaxis Mouth: Yes moist mucous membranes Eyes: Sclera: sclerae normal Pupils: Equal, round and reactive pupils present Neck: Neck: supple and no JVD Carotids: no bruits Resp: Auscultation: clear to auscultation bilaterally and lung sounds not diminished Other: No chest wall tenderness Cardio: Rate: regular rate Rhythm: regular rhythm Heart sounds: no gallops, no murmurs and no rubs GI: GI Palp: Yes Soft to palpation and No Tenderness to palpation present (GI) Auscultation: normal bowel sounds Skin: General skin exam: normal color, rashes and/or lesions noted and no erythema Other: Warm Neuro: Cranial nerves: Yes Equal, round and reactive pupils present Speech: normal speech Other: No obvious focal deficit or facial asymmetry Extrem: General: no edema Other: Normal capillary refills Intact distal pulses. Results Labs and Meds 07/08/25 00:25 07/08/25 06:34 Lab results: Cardiac Enzymes 07/07/25 07/07/25 07/07/25 Range/Units 09:56 12:49 15:34 AST 37 (17-59) U/L Troponin I < 0.012 3.060 H* D 9.260 H* D (0.000-0.034) ng/mL 07/07/25 07/08/25 Range/Units 18:41 06:34 AST (17-59) U/L Troponin I 13.200 H* D 6.640 H* (0.000-0.034) ng/mL Coagulation 07/07/25 07/07/25 07/08/25 Range/Units 09:56 18:41 00:25 PT 12.5 13.2 (11.1-14.7) Seconds APTT 26.3 27.4 89.3 H (22.3-36.8) Seconds 07/08/25 Range/Units 06:34 PT (11.1-14.7) Seconds APTT 98.3 H (22.3-36.8) Seconds CBC 07/07/25 07/08/25 Range/Units 18:41 00:25 WBC 5.8 5.6 (4.5-10.0) K/mm3 RBC 4.58 L 4.36 L (4.6-6.20) M/mm3 Hgb 13.9 L 13.4 L (14.0-18.0) g/dL Hct 42.3 40.7 L (42.0-52.0) % Plt Count 192 171 (150-375) k/mm3 Lymph # (Auto) 1.04 1.36 (0.9-3.2) K/mm3 [place] # (Auto) 0.5 0.5 (0.1-0.6) K/mm3 Eos # (Auto) 0.1 0.1 (0-0.3) K/mm3 Baso # (Auto) 0.0 0.0 (0.0-0.1) K/mm3 Comprehensive Metabolic Panel 07/07/25 07/08/25 Range/Units 09:56 06:34 Sodium 138 138 (137-145) mmol/L Potassium 4.3 3.9 (3.4-5.0) mmol/L Chloride 107 107 (98-107) mmol/L Carbon Dioxide 19 L 25 (22-30) mmol/L BUN 20 17 (9-20) mg/dL Creatinine 1.02 1.01 (0.7-1.3) mg/dL Glucose 132 H 99 (65-110) mg/dL Calcium 9.5 8.9 (8.4-10.2) mg/dL AST 37 (17-59) U/L ALT 33 (6-50) U/L Alkaline Phosphatase 75 (38-126) U/L Total Protein 7.8 (6.3-8.2) g/dL Albumin 4.5 (3.5-5.1) g/dL Intake and Output 07/07/25 07/08/25 07/08/25 23:59 07:59 15:59 Intake Total 640 410.2 0 Output Total 575 Balance 640 -164.8 0 Intake: IV 110.2 Heparin Sod/D5w 100 Units/ml 25 110.2 ,000 units In 250 ml @ 900 UNITS/HR 9 mls/hr IV CONT .Q24H [facility] Rx#:[id number] Oral 640 300 0 Output: Urine 575 Other: # Unmeasured Voids 3 Patient Weight 07/08/25 23:59 Weight 79.2 kg
--- NOTE | 2025-07-08 13:26 | P.PNIM_ITS ---
Progress Note: A&P Assessment and Plan (1) Chest pain: Code(s): R07.9 - Chest pain, unspecified Status: Acute (2) CAD (coronary artery disease): Code(s): I25.10 - Atherosclerotic heart disease of [place] coronary artery without angina pectoris Status: Acute (3) Takotsubo syndrome: Code(s): I51.81 - Takotsubo syndrome Status: Acute (4) Iron deficiency anemia: Qualifiers: Iron deficiency anemia type: other iron deficiency Qualified Code(s): D50.8 - Other iron deficiency anemias Code(s): D50.9 - Iron deficiency anemia, unspecified Status: Chronic (5) BPH (benign prostatic hyperplasia): Qualifiers: Lower urinary tract symptom presence: symptoms absent Qualified Code(s): N40.0 - Benign prostatic hyperplasia without lower urinary tract symptoms Code(s): N40.0 - Benign prostatic hyperplasia without lower urinary tract symptoms Status: Acute (6) Hypothyroidism: Qualifiers: Hypothyroidism type: acquired Qualified Code(s): E03.9 - Hypothyroidism, unspecified Code(s): E03.9 - Hypothyroidism, unspecified Status: Acute (7) Anxiety disorder, unspecified: Qualifiers: Anxiety disorder type: generalized anxiety disorder Qualified Code(s): F41.1 - Generalized anxiety disorder Code(s): F41.9 - Anxiety disorder, unspecified Status: Acute (8) Non-ST elevation ME (NSTEMI): Code(s): I21.4 - Non-ST elevation (NSTEMI) myocardial infarction Status: Acute Plan 1. Chest pain History of takotsubo syndrome secondary to his mother's Echo shows diastolic dysfunction grade 1, EF of 50-60% with apical septum and mid anteroseptall hypokinetic dysfunction [facility] 06/20/2025, found 90% lesion junction the proximal and midportion of the LAD status post stent Continue aspirin, Brilinta, Lipitor, and metoprolol Continue heparin drip Troponin is downtrending, alk 80. After next check Cardiology consulted, appreciate recs Tentative plan cardiac catheterization tomorrow, and NPO after midnight 2. History of CAD/takotsubo syndrome status post PCI 06/20/2025 by Continue aspirin/Brilinta/atorvastatin 3. Hyperlipidemia Continue atorvastatin 4. GERD Continue omeprazole 5. History of iron deficiency anemia Hemoglobin 14.5 and MCV 92.0 Daily CBC 6. Disposition He lives home with his Home once clinically stable Time Spent With Patient Time: 35 minutes Subjective Date/time seen: 07/08/25 13:26 Interval history: Sebastien is chest pain-free. He is lying in the bed comfortably. Troponin is down trending. EKG no ST segment change. He is to treated as an NSTEMI. He was started on heparin drip yesterday. Review of Systems Review of Systems: All systems reviewed & are unremarkable except as noted in HPI and below Exam Narrative: APPEARANCE: Anxious EYES: EOMI HEENT: Normocephalic, atraumatic, OMM RESPIRATORY: No respiratory distress Clear to auscultation bilaterally with no rhonchi wheezing or rales. CARDIOVASCULAR: RRR, S1 and S2 without murmurs rubs or gallops. ABDOMINAL: Soft, nontender, nondistended, no rebound or guarding MSK: 5/5 motor strength in all 4 extremities. No bony tenderness throughout either leg and no deformities. NEURO: Awake and alert. Following commands, speech normal, no focal deficits SKIN:: Warm, dry. No rashes lesions or abrasions PSYCHIATRIC: Frustrated Objective Data Vital Signs Vital Signs: Vital Signs - 24 hr 07/07/25 14:00 07/07/25 16:00 07/07/25 16:00 Temperature Pulse Rate 68 60 Respiratory Rate Blood Pressure Pulse Oximetry Oxygen Delivery Room Air 07/07/25 18:00 07/07/25 20:00 07/07/25 20:00 Temperature 36.6 C Pulse Rate 64 59 L 59 L Respiratory Rate 15 Blood Pressure 140/81 Pulse Oximetry 97 Oxygen Delivery Room Air 07/07/25 20:00 07/07/25 22:00 07/08/25 00:00 Temperature 36.6 C Pulse Rate 60 52 L 58 L Respiratory Rate 14 Blood Pressure 125/66 Pulse Oximetry 100 Oxygen Delivery 07/08/25 00:00 07/08/25 00:00 07/08/25 02:00 Temperature Pulse Rate 53 L 47 L 49 L Respiratory Rate Blood Pressure Pulse Oximetry Oxygen Delivery Room Air 07/08/25 04:00 07/08/25 04:00 07/08/25 04:00 Temperature 36.7 C Pulse Rate 61 49 L 53 L Respiratory Rate 14 Blood Pressure 116/70 Pulse Oximetry 99 Oxygen Delivery Room Air 07/08/25 06:00 07/08/25 08:00 07/08/25 08:30 Temperature 36.8 C Pulse Rate 56 L 69 70 Respiratory Rate 14 Blood Pressure 129/80 Pulse Oximetry 96 Oxygen Delivery 07/08/25 10:00 07/08/25 11:28 Temperature 36.6 C Pulse Rate 71 61 Respiratory Rate 16 Blood Pressure 132/76 Pulse Oximetry 99 Oxygen Delivery Intake/Output Intake/Output: Intake & Output 07/05/25 07/06/25 07/07/25 07/08/25 23:59 23:59 23:59 23:59 Intake Total 640 410.2 Output Total 575 Balance 640 -164.8 Meds/Results Medications: Active Medications Generic Name Dose Route Start Last Admin Trade Name Freq PRN Reason Stop Dose Admin Acetaminophen 650 mg 07/07/25 11:32 Acetaminophen 325 Mg Tablet PO Q4H PRN Mild Pain (1-3) or Fever Hydrocodone Bitart/Acetaminophen 1 tab 07/07/25 11:32 Hydrocodone/Acetaminophen (*Crx) 5-325 Mg Tablet PO Q4H PRN Pain Rated 4-6 Alprazolam 0.5 mg 07/07/25 21:00 07/07/25 20:04 Alprazolam (*Crx) 0.5 Mg Tablet PO 0.5 mg HS FREDDIE Administration Aspirin 81 mg 07/08/25 08:00 07/08/25 09:31 Aspirin 81 Mg Chewable Tablet PO 81 mg DAILY@0800 FREDDIE Administration Atorvastatin Calcium 20 mg 07/08/25 09:00 07/08/25 09:32 Atorvastatin 20 Mg Tablet PO 20 mg DAILY FREDDIE Administration Gabapentin 300 mg 07/07/25 17:15 Gabapentin 300 Mg Capsule PO QHS PRN NERVE Pain Heparin Sodium (Porcine) 4,000 units 07/07/25 18:20 Heparin Sodium 5,000 Units/Ml Vial IV PUSH PRN PRN aPTT less than 55 seconds Heparin Sodium (Porcine) 3,000 units 07/07/25 18:20 Heparin Sodium 5,000 Units/Ml Vial IV PUSH PRN PRN aPTT 55 - 70 seconds Heparin Sodium/Dextrose 25,000 units in 250 mls @ 9 mls/hr 07/07/25 18:20 07/08/25 06:56 Heparin Sodium/D5w 100 Units/Ml IV CONT 900 units/hr .Q24H FREDDIE 9 mls/hr Protocol Titration 900 UNITS/HR Mirtazapine 7.5 mg 07/07/25 21:00 07/07/25 20:04 Mirtazapine 7.5 Mg Tablet PO 7.5 mg HS FREDDIE Administration Morphine Sulfate 4 mg 07/07/25 11:32 Morphine Sulfate (*Crx) 4 Mg/Ml Inj IV PUSH Q2H PRN Pain Rated 7-10 Nitroglycerin 0.4 mg 07/07/25 11:32 Nitroglycerin Sl 0.4 Mg Tablet SUBLINGUAL Q5MIN PRN Chest Pain Ondansetron HCl 4 mg 07/07/25 11:32 Ondansetron Inj 4 Mg/2 Ml Vial IV PUSH Q4H PRN Nausea Pantoprazole Sodium 40 mg 07/07/25 17:20 07/08/25 09:32 Pantoprazole 40 Mg Tablet PO 08/07/25 17:19 40 mg DAILY FREDDIE Administration Ticagrelor 90 mg 07/07/25 21:00 07/08/25 09:31 Ticagrelor 90 Mg Tablet PO 90 mg Q12HR FREDDIE Administration Radiology Results: ITS Impressions Chest X-Ray 07/07/25 11:22 IMPRESSION: 1: NO ACUTE CARDIOPULMONARY DISEASE. Labs Labs: Laboratory Results - last 24 hr 07/07/25 07/07/25 07/07/25 12:49 15:34 18:41 WBC 5.8 RBC 4.58 L Hgb 13.9 L Hct 42.3 MCV 92.4 MCH 30.3 MCHC 32.9 RDW 14.6 H Plt Count 192 MPV 10.4 Immature Gran % (Auto) 0.2 Neut % (Auto) 71.1 Lymph % (Auto) 17.9 L Jennings % (Auto) 8.8 H Eos % (Auto) 1.7 Baso % (Auto) 0.3 Lymph # (Auto) 1.04 Jennings # (Auto) 0.5 Eos # (Auto) 0.1 Baso # (Auto) 0.0 Abs Immat Gran (auto) 0.01 Absolute Neuts (auto) 4.1 Absolute Nucleated RBC 0.000 Nucleated RBC % 0.0 PT 13.2 INR 1.0 APTT 27.4 Sodium Potassium Chloride Carbon Dioxide Anion Gap BUN Creatinine Estim Creat Clear Calc Estimated GFR Glucose Calcium Troponin I 3.060 H* D 9.260 H* D 13.200 H* D 07/08/25 07/08/25 00:25 06:34 WBC 5.6 RBC 4.36 L Hgb 13.4 L Hct 40.7 L MCV 93.3 MCH 30.7 MCHC 32.9 RDW 14.5 Plt Count 171 MPV 10.8 H Immature Gran % (Auto) 0.2 Neut % (Auto) 63.2 Lymph % (Auto) 24.3 Jennings % (Auto) 9.6 H Eos % (Auto) 2.3 Baso % (Auto) 0.4 Lymph # (Auto) 1.36 Jennings # (Auto) 0.5 Eos # (Auto) 0.1 Baso # (Auto) 0.0 Abs Immat Gran (auto) 0.01 Absolute Neuts (auto) 3.5 Absolute Nucleated RBC 0.000 Nucleated RBC % 0.0 PT INR APTT 89.3 H 98.3 H Sodium 138 Potassium 3.9 Chloride 107 Carbon Dioxide 25 Anion Gap 6 BUN 17 Creatinine 1.01 Estim Creat Clear Calc 76 Estimated GFR > 60 Glucose 99 Calcium 8.9 Troponin I 6.640 H* Quality VTE Prophylaxis VTE prophylaxis: pharmacologic ordered (Heparin drip)
[2025-07-08] MEDS: ACETAMINOPHEN 325 MG TABLET 650 MG PO (15:40)
[2025-07-08] MEDS: MIRTAZAPINE 7.5 MG TABLET PO (20:24)
[2025-07-08] MEDS: HEPARIN SOD/D5W 100 UNITS/ML 25,000 UNITS/250 ML BAG 9 UNITS IV CONT (20:25)
[2025-07-08] MEDS: ALPRAZolam (*CRX) 0.5 MG TABLET PO (20:25)
[2025-07-09] VITALS (30 sets, daily range): BP systolic 109–157; BP diastolic 57–97; PULSE 56–73; RESP 12–22; TEMP 36.5–36.9; O2SAT 95–100
[2025-07-09 04:23] LABS: Partial Thromboplastin Time 112.4 Seconds (22.3-36.8)
--- NOTE | 2025-07-09 09:13 | P.SEDATION_ITS ---
Moderate Sedation Note-Pt Data Patient Data Allergies Allergy/AdvReac Type Severity Reaction Status Date / Time Penicillins AdvReac Mild Hives Verified 07/07/25 13:02 Home Medications ?Medication ?Instructions ?Recorded ?Confirmed ?Type alprazolam 0.5 mg tablet 0.5 mg PO .QHS #90 tabs 03/2 07/07/25 Rx mirtazapine 7.5 mg tablet 7.5 mg PO DAILY #90 tabs 07/07/25 Rx omeprazole 20 mg capsule,delayed 20 mg PO DAILY #90 ca ps 01/24/25 07/07/25 Rx release gabapentin 300 mg capsule 300 mg PO QHS PRN pain 06/1807/07/25 History ticagrelor 90 mg tablet (Brilinta) 90 mg PO Q12HR 30 d ays #60 tabs 06/20/25 07/07/25 Rx aspirin 81 mg chewable tablet 81 mg PO DAILY@0800 #30 tabs 06/21/25 07/07/25 Rx (Children's Aspirin) atorvastatin 20 mg tablet 20 mg PO DAILY #30 tabs 06/0707/07/25 Rx Current Medications: Active Medications Acetaminophen (Acetaminophen 325 Mg Tablet) 650 mg PO Q4H PRN PRN Reason: Mild Pain (1-3) or Fever Last Admin: 07/08/25 15:40 Dose: 650 mg Hydrocodone Bitart/Acetaminophen (Hydrocodone/Acetaminophen (*Crx) 5-325 Mg Tablet) 1 tab PO Q4H PRN PRN Reason: Pain Rated 4-6 Alprazolam (Alprazolam (*Crx) 0.5 Mg Tablet) 0.5 mg PO HS [facility] Last Admin: 07/08/25 20:25 Dose: 0.5 mg Aspirin (Aspirin 81 Mg Chewable Tablet) 81 mg PO DAILY@0800 [facility] Last Admin: 07/08/25 09:31 Dose: 81 mg Atorvastatin Calcium (Atorvastatin 20 Mg Tablet) 20 mg PO DAILY [facility] Last Admin: 07/08/25 09:32 Dose: 20 mg Gabapentin (Gabapentin 300 Mg Capsule) 300 mg PO QHS PRN PRN Reason: NERVE Pain Heparin Sodium (Porcine) (Heparin Sodium 5,000 Units/Ml Vial) 4,000 units IV PUSH PRN PRN PRN Reason: aPTT less than 55 seconds Heparin Sodium (Porcine) (Heparin Sodium 5,000 Units/Ml Vial) 3,000 units IV PUSH PRN PRN PRN Reason: aPTT 55 - 70 seconds Heparin Sodium/Dextrose (Heparin Sodium/D5w 100 Units/Ml) 25,000 units in 250 mls @ 7 mls/hr IV CONT .Q24H FREDDIE; Protocol Last Titration: 07/09/25 04:37 Dose: 700 units/hr, 7 mls/hr Mirtazapine (Mirtazapine 7.5 Mg Tablet) 7.5 mg PO HS [facility] Last Admin: 07/08/25 20:24 Dose: 7.5 mg Morphine Sulfate (Morphine Sulfate (*Crx) 4 Mg/Ml Inj) 4 mg IV PUSH Q2H PRN PRN Reason: Pain Rated 7-10 Nitroglycerin (Nitroglycerin Sl 0.4 Mg Tablet) 0.4 mg SUBLINGUAL Q5MIN PRN PRN Reason: Chest Pain Ondansetron HCl (Ondansetron Inj 4 Mg/2 Ml Vial) 4 mg IV PUSH Q4H PRN PRN Reason: Nausea Pantoprazole Sodium (Pantoprazole 40 Mg Tablet) 40 mg PO DAILY [facility] Stop: 08/07/25 17:19 Last Admin: 07/08/25 09:32 Dose: 40 mg Ticagrelor (Ticagrelor 90 Mg Tablet) 90 mg PO Q12HR FREDDIE Last Admin: 07/08/25 20:25 Dose: 90 mg Sedation/Anesthesia: No previous sedation/anesthesia problems (including family history). [facility] Past Medical History Medical History (Updated 07/07/25 @ 15:55 by Hung Soto MD) CAD (coronary artery disease) GERD (gastroesophageal reflux disease) Poison zechariah Fatigue BMI 22.0-22.9, adult Need for vaccination Apnea De Quervain's disease (tenosynovitis) Hyperhidrosis Weight loss, unintentional BPH (benign prostatic hyperplasia) Knee abrasion BMI 27.0-27.9,adult Hypothyroidism BMI 26.0-26.9,adult Skin lesion of face Erectile dysfunction Psychophysiological insomnia Testosterone deficiency Surgical History Surgical History History of ankle surgery Family History Family History (Updated 07/07/25 @ 12:50 by Nneka Weston RN) Grandparent Diabetes mellitus Father Acute myocardial infarction Mother Leukemia Cancer of vulva Cancer of kidney Penicillin allergy Other Family history of arthritis Family history of malignant neoplasm Social History Social History Smoking status: Never smoker Second hand tobacco smoke exposure: Yes Alcohol intake: current Drinks per week: 6 Substance use: never Substance use type: marijuana Other substance usage details: gummies at bedtime 10mg Last use: gummies at night to sleep. 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 Gender identity (if verbalized by the patient): Male Spiritual care concerns: No Mod Sed Physical Exam Physical Exam Pre Procedural Exam: Normal: Lungs, Heart Size, Heart Rate and Heart Rhythm Hours since solid foods: 12 Hours since liquid intake: 12 Mallampati Classification: class II Internal Medicine - PN: Obj Da Vital Signs Vital Signs: Vital Signs - 24 hr 07/08/25 10:00 07/08/25 11:28 07/08/25 12:30 Temperature 36.6 C Pulse Rate 71 61 65 Respiratory Rate 16 Blood Pressure 132/76 Pulse Oximetry 99 07/08/25 14:00 07/08/25 16:00 07/08/25 16:40 Temperature 37.0 C Pulse Rate 62 69 58 L Respiratory Rate 20 Blood Pressure 137/84 Pulse Oximetry 99 07/08/25 18:00 07/08/25 20:00 07/08/25 20:00 Temperature 36.8 C Pulse Rate 62 59 L 64 Respiratory Rate 14 Blood Pressure 123/78 Pulse Oximetry 98 07/08/25 22:00 07/09/25 00:00 07/09/25 00:00 Temperature 36.7 C Pulse Rate 56 L 73 58 L Respiratory Rate 14 Blood Pressure 122/74 Pulse Oximetry 100 07/09/25 02:00 07/09/25 04:00 07/09/25 04:00 Temperature 36.9 C Pulse Rate 56 L 60 60 Respiratory Rate 14 Blood Pressure 117/76 Pulse Oximetry 99 07/09/25 06:00 07/09/25 07:33 Temperature 36.5 C Pulse Rate 57 L 67 Respiratory Rate 16 Blood Pressure 127/89 Pulse Oximetry 99 Intake/Output Intake/Output: Intake & Output 07/06/25 07/07/25 07/08/25 07/09/25 23:59 23:59 23:59 23:59 Intake Total 640 1991.5 173.8 Output Total 575 200 Balance 640 1416.5 -26.2 Meds/Results Medications: Active Medications Generic Name Dose Route Start Last Admin Trade Name Freq PRN Reason Stop Dose Admin Acetaminophen 650 mg 07/07/25 11:32 07/08/25 15:40 Acetaminophen 325 Mg Tablet PO 650 mg Q4H PRN Administration Mild Pain (1-3) or Fever Hydrocodone Bitart/Acetaminophen 1 tab 07/07/25 11:32 Hydrocodone/Acetaminophen (*Crx) 5-325 Mg Tablet PO Q4H PRN Pain Rated 4-6 Alprazolam 0.5 mg 07/07/25 21:00 07/08/25 20:25 Alprazolam (*Crx) 0.5 Mg Tablet PO 0.5 mg HS FREDDIE Administration Aspirin 81 mg 07/08/25 08:00 07/08/25 09:31 Aspirin 81 Mg Chewable Tablet PO 81 mg DAILY@0800 FREDDIE Administration Atorvastatin Calcium 20 mg 07/08/25 09:00 07/08/25 09:32 Atorvastatin 20 Mg Tablet PO 20 mg DAILY FREDDIE Administration Gabapentin 300 mg 07/07/25 17:15 Gabapentin 300 Mg Capsule PO QHS PRN NERVE Pain Heparin Sodium (Porcine) 4,000 units 07/07/25 18:20 Heparin Sodium 5,000 Units/Ml Vial IV PUSH PRN PRN aPTT less than 55 seconds Heparin Sodium (Porcine) 3,000 units 07/07/25 18:20 Heparin Sodium 5,000 Units/Ml Vial IV PUSH PRN PRN aPTT 55 - 70 seconds Heparin Sodium/Dextrose 25,000 units in 250 mls @ 7 mls/hr 07/07/25 18:20 07/09/25 04:37 Heparin Sodium/D5w 100 Units/Ml IV CONT 700 units/hr .Q24H FREDDIE 7 mls/hr Protocol Titration 700 UNITS/HR Mirtazapine 7.5 mg 07/07/25 21:00 07/08/25 20:24 Mirtazapine 7.5 Mg Tablet PO 7.5 mg HS FREDDIE Administration Morphine Sulfate 4 mg 07/07/25 11:32 Morphine Sulfate (*Crx) 4 Mg/Ml Inj IV PUSH Q2H PRN Pain Rated 7-10 Nitroglycerin 0.4 mg 07/07/25 11:32 Nitroglycerin Sl 0.4 Mg Tablet SUBLINGUAL Q5MIN PRN Chest Pain Ondansetron HCl 4 mg 07/07/25 11:32 Ondansetron Inj 4 Mg/2 Ml Vial IV PUSH Q4H PRN Nausea Pantoprazole Sodium 40 mg 07/07/25 17:20 07/08/25 09:32 Pantoprazole 40 Mg Tablet PO 08/07/25 17:19 40 mg DAILY FREDDIE Administration Ticagrelor 90 mg 07/07/25 21:00 07/08/25 20:25 Ticagrelor 90 Mg Tablet PO 90 mg Q12HR FREDDIE Administration Radiology Results: ITS Impressions Chest X-Ray 07/07/25 11:22 IMPRESSION: 1: NO ACUTE CARDIOPULMONARY DISEASE. Labs 07/08/25 00:25 07/08/25 06:34 Labs: Laboratory Results - last 24 hr 07/09/25 03:33 APTT 112.4 H ASA Classification/Sedation ASA Classification/Sedation ASA Class: III Emergent: No Risks: Risks, benefits and alternatives explained and patient/family accepted plan for sedation. Patient re-evaluated immediately prior to sedation.
--- NOTE | 2025-07-09 09:13 | WPDHPUPDATE1 ---
History and Physical Update Update Date/Time: 07/09/25 09:00 History and Physical has been reviewed, including an updated exam of the patient. There are NO changes in the patient's condition. Risks, benefits, and alternatives have been discussed and questions answered. Patient agrees to proceed with procedure.
[2025-07-09] MEDS: TICAGRELOR 90 MG TABLET PO (10:00)
--- NOTE | 2025-07-09 10:04 | WPDCARDPROC ---
Cardiac Cath Procedure Note Date of procedure:: 07/09/25 Performing physician:: CATHETERIZATION LABORATORY REPORT Procedure Date:07/09/2025 Referring Physician:Dr. Davalos Anesthesia: Versed and Fentanyl were ordered and given in my presence at 0940, procedure ended at 0958. Supervision of nurse, Nara Rasmussen monitored moderate sedation with 2mg Versed and 200mcg Fentanyl was provided for 18 minutes. Pre-op Diagnosis: NSTEMI Post-op Diagnosis: NSTEMI Procedure(s): Left heart catheterization with coronary angiography Access Site: Right radial artery Brief History and Clinical Indications: 59-year-old man with CAD status post PCI presents with chest pain found to have NSTEMI for which cardiac catheterization with possible PCI was recommended. All risks, benefits and alternatives to left heart catheterization with or without percutaneous coronary intervention was discussed at length with the patient. Risk of complications including but not limited to bleeding, infection, arrhythmia, stroke, worsening kidney function, blood loss, groin hematoma, limb loss, emergency coronary artery bypass grafting, and even were discussed with the patient and all questions were answered. The patient understood and wished to proceed. Time out called, patient name, date of , medical record number, allergies, procedure performed, identify Java Web Developer, patient and staff member concurred with accurate data, procedure carried on. Findings: LEFT HEART CATHETERIZATION FINDINGS: 1. Left main: The left main coronary artery is widely patent without any significant obstructive disease. 2. Left anterior descending: The LAD has a patent stent in its midbody. The ostium of LAD and its proximal body has 10-20% stenosis. The remainder of the LAD and diagonal branches have diffuse 10% stenosis. 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 3. Left circumflex: The left circumflex artery had its ostium has 10-20% stenosis. The left circumflex is a codominant vessel. The remainder of the vessel and the main marginal branches have diffuse 10% stenosis. 4. Right coronary artery: The RCA has mild luminal irregularities without any significant obstructive angiographic disease. The RCA is the dominant vessel. 5. Left ventricle: A. End-diastolic pressure 15 mmHg. B. LV gram deferred. C. No significant gradient across aortic valve on catheter pullback. 6. Opening AO pressure 119/79 and closing AO pressure 117/78 Description of Procedure: Informed consent signed and placed in the chart. Patient transferred to manager labor relations room. Prepped and draped in usual sterile fashion. 2% lidocaine injected subcutaneously in right wrist area. 22-gauge venipuncture catheter used to access the right radial artery with the Seldinger technique. 6-FR slender sheath placed in right radial artery. Nitroglycerin 200mcg, Verapamil 2.5mg, and Heparin 5000U was given intraarterial through the sheath. J wire advanced under fluoroscopy. 5F JL3.5 diagnostic catheter engaged Left Main Coronary Artery. 5F Ultra diagnostic catheter engaged Right Coronary Artery. Multiple orthogonal angiogram obtained and reviewed. 5F Ultra diagnostic catheter crossed aortic valve to obtain LVEDP, LV angiogram deferred. Hemostasis was achieved by application of TR band. Assessment: [place] Post Operative Condition: Stable No significant blood loss Disposition: Home Plan: The patient will be monitored in the recovery area. DAPT for 1 year followed by ASA indefinitely. Continue aggressive medical therapy and risk factor modification. Patient can be discharged home from IMU today if symptom free. Tera Uribe Interventional Cardiology
[2025-07-09] MEDS: SODIUM CHLORIDE 0.9% IV 1,000 ML 125 ML IV CONT (11:00)
[2025-07-09] MEDS: ASPIRIN 81 MG CHEWABLE TABLET PO (16:24)
[2025-07-09] MEDS: PANTOPRAZOLE 40 MG TABLET PO (16:24)
[2025-07-09] MEDS: ATORVASTATIN 20 MG TABLET PO (16:24)
--- NOTE | 2025-07-09 16:56 | PM.DS ---
DS: Admitting Diagnosis Discharge Date 07/09/25 Admitting Diagnosis Substernal chest pain DS: Discharge Diagnosis Discharge Diagnosis (1) Elevated troponin: Code(s): R79.89 - Other specified abnormal findings of blood chemistry Status: Acute DS: Summary Hospital Course Hospital Course: Sebastien Gee is a 59 year old male with CAD s/p PCI x1 06/20/2025, hyperlipidemia, history of iron in deficiency, hypothyroid presented with Chest pain and Er eval noted elevated troponin with Troponin as high as 13.2. patient noted that Chest pain wresolved with Aspirin in the ER. Cardiology was consulted adn patient underwent cardiac cath no no significant stenosis revealed Cardiology recommended discharged and continuation of his current home meds and will follow up in the office on the . Continue hoem meds F/u with PCP in 3-5 days F/u with cardiology as scheduled Time Spent with Patient Time attestation: Total time spent providing and/or coordinating discharge services: DS: Data Data Completed and Pending Labs on day of discharge: Labs from last 24 hours 07/09/25 03:33 APTT 112.4 H Discharge Plan Discharge Attending physician on discharge: Tena Holland Consulting providers: Drew Field; Tena Holland Discharging Clinician: Tena Holland Anticipated Discharge Date/Time: 07/09/25 16:54 Patient Disposition: Home Activity: as tolerated Diet: as tolerated and heart healthy Discharge Instructions: [facility] [address] [place] [id number] DISCHARGE INSTRUCTIONS - POST RADIAL CATH Activity 1. No driving for 24 hours. 2. No lifting more than 5 lb with affected arm for 1 week. 3. May shower ( tomorrow) but no excessive soaking of affected hand/wrist (such as washing dishes), swimming pool or hot tub for 5 days. Wound Care 1. May remove arm board in the morning. 2. May remove gauze dressing in the morning and put Band-Aid over affected radial site. Keep site covered for 3 days. 3. Observe for redness, drainage, swelling or bleeding. Medications DO NOT STOP YOUR MEDICATIONS ONLY YOUR [employer] CAN STOP THE FOLLOWING MEDICATIONS - PLEASE CALL THE OFFICE WITH QUESTIONS. *Aspirin *Ticagrelor (Brilinta) *Atorvastatin *Lisinopril or ARB *Metoprolol tartrate or succinate *Clopidogrel (Plavix) *Prasugrel (Effient) Important Reminders 1. Keep your stent card in your wallet at all times 2. Follow a heart healthy diet paying extra attention to cholesterol and fats. 3. Stay hydrated. 4. If you have chest pain unrelieved by rest or nitroglycerin (if prescribed) call 911 immediately. 5. If you miss one dose of Brilinta (if prescribed) take a tablet at the next time due. If you miss 2 doses take a tablet when you remember and resume at the next time due. *For any other questions please call the office at [phone]. Office hours are 8AM 4:30PM Tuesday through Tuesday. Patient Instructions: Antibiotic Form, Moderate Sedation (DC), After Radial Heart Catheterization (GEN) Patient Language: Portuguese Stand Alone Forms: General Discharge Information Follow-up/Referrals: Drew Field MD [Physician, Cardiology] Referral Note: F/u with cardiology as instructed Tobias Barboza MD [Primary Care Provider, Family Practice] Referral Note: F/u with PCP in 3-5 days Discharge Medications: Continued omeprazole 20 mg capsule,delayed release(DR/EC) 20 mg PO DAILY Qty: 90 3RF mirtazapine 7.5 mg tablet 7.5 mg PO DAILY Qty: 90 1RF alprazolam 0.5 mg tablet 0.5 mg PO .QHS Qty: 90 1RF gabapentin 300 mg capsule 300 mg PO QHS PRN (Reason: pain) ticagrelor [Brilinta] 90 mg Tablet 90 mg PO Q12HR 30 Days Qty: 60 11RF atorvastatin 20 mg Tablet 20 mg PO DAILY Qty: 30 0RF aspirin [Children's Aspirin] 81 mg Tablet,Chewable 81 mg PO DAILY@0800 Qty: 30 0RF Date of admission: 07/09/25 09:51 Primary Care Provider: Tobias Barboza Admitting Provider: Najma Davalos Attending physician on admission: Najma Davalos Condition: Stable
== END 2025-07-09 17:18 | disposition home or self-care (01) | DRG 281 ==
LOC: ANHED 12:09 → ANHIMU 12:14
PROVIDERS: Emergency Medicine; Internal Medicine; Admitting Provider Student in an Organized Health Care Education/Training Program; Emergency Provider Emergency Medicine; PCP Family Medicine; Visit Provider Internal Medicine
PROC: 4A023N7 Measurement of Cardiac Sampling and Pressure, Left Heart, Percutaneous Approach (ICD-10-PCS; CPT 93452; principal; 2025-07-09 09:30)
DX: I21.4 Non-ST elevation (NSTEMI) myocardial infarction (principal); Q24.5 Malformation of coronary vessels; I25.10 Atherosclerotic heart disease of native coronary artery without angina pectoris; E78.5 Hyperlipidemia, unspecified; K21.9 Gastro-esophageal reflux disease without esophagitis; D50.8 Other iron deficiency anemias; N40.0 Benign prostatic hyperplasia without lower urinary tract symptoms; F51.04 Psychophysiologic insomnia; F41.9 Anxiety disorder, unspecified; R61 Generalized hyperhidrosis; E29.8 Other testicular dysfunction; F10.90 Alcohol use, unspecified, uncomplicated; F12.20 Cannabis dependence, uncomplicated; Z79.82 Long term (current) use of aspirin; Z86.79 Personal history of other diseases of the circulatory system; Z87.891 Personal history of nicotine dependence
CPT/HCPCS: 36415; 71046; 80048; 80053; 83690; 84484; 85025; 85610; 85730; 93005; 93458; 99285; A9270; C1769; C1887; C1894; G0378; J1644; J2003; J2250; J2305; J3010; J7030; J7040